=== PATIENT | male | born 1945 | race Caucasian/White ===

== ENCOUNTER 2023-02-01 14:55 | Outpatient (OUT) | payer MEDICARE, BC, SELFPAY | END 2023-02-01 14:56 | disposition home or self-care (01) | PROVIDERS: PCP Nurse Practitioner; Visit Provider Urology | DX: N40.0 Benign prostatic hyperplasia without lower urinary tract symptoms (principal); R97.20 Elevated prostate specific antigen [PSA] | CPT/HCPCS: 36415; 84153 ==

== ENCOUNTER 2023-09-01 09:21 | Outpatient (OUT) | payer MEDICARE, BC, SELFPAY ==
[2023-09-01 10:05] LABS: Basophils Absolute Auto 0.1 10^3/uL (0.0-0.1); Basophils Percent Auto 0.9 % (0.2-2.0); Eosinophils Absolute Auto 0.3 10^3/uL (0.0-0.7); Hematocrit 49.8 % (42.0-54.0); Hemoglobin 16.6 g/dL (14.0-18.0); Immature Granulocytes Abs Auto 0.03 10^3/uL (0.00-0.03); Immature Granulocytes Pct Auto 0.4 % (0.0-0.5); Lymphocytes Absolute Auto 1.8 10^3/uL (1.2-3.8); Lymphocytes Percent Auto 25.8 % (20.5-60.0); Mean Corpuscular HGB Conc 33.3 g/dL (29.9-35.2); Mean Corpuscular Volume 92.9 fL (80.0-94.0); Mean Platelet Volume 9.6 fL (9.5-13.5); Monocytes Absolute Auto 0.9 10^3/uL (0.3-0.8); Monocytes Percent Auto 12.6 % (1.7-12.0); Neutrophils Absolute Auto 3.9 10^3/uL (1.4-6.5); Neutrophils Percent Auto 56.3 % (43.0-75.0); Platelet Count 253 10^3/uL (150-450); Red Blood Count 5.36 10^6/uL (4.70-6.10); Red Cell Distribution Width 12.6 % (11.0-15.0)
[2023-09-01 10:06] LABS: Bilirubin Urine NEGATIVE (NEGATIVE); Blood Urine NEGATIVE (NEGATIVE); Clarity Urine CLEAR (CLEAR); Color Urine YELLOW (YELLOW); Glucose Urine UA NEGATIVE (NEGATIVE); Ketones Urine NEGATIVE (NEGATIVE); Leukocyte Esterase Urine NEGATIVE (NEGATIVE); Nitrite Urine NEGATIVE (NEGATIVE); Protein Urine TRACE mg/dL (NEG/TRACE); Specific Gravity Urine 1.025 (1.005-1.025); Urobilinogen Urine 0.2 EU/dL (0.2-1.0)
[2023-09-01 10:07] LABS: Urine Microscopic Indicated NO
[2023-09-01 11:19] LABS: Alanine Aminotransferase 51 U/L (16-63); Albumin Globulin Ratio 0.9; Albumin Level 3.6 g/dL (3.4-5.0); Alkaline Phosphatase 125 U/L (46-116); Anion Gap 11.2; Aspartate Amino Transferase 29 U/L (15-37); BUN Creatinine Ratio 22.6; Bilirubin Total 0.8 mg/dL (0.2-1.0); Calcium 8.9 mg/dL (8.5-10.1); Carbon Dioxide 31.4 mmol/L (21.0-32.0); Chloride 104 mmol/L (98-107); Chol HDL Ratio 3.5; Cholesterol 207 mg/dL (<=200); Estimated GFR (African America >60 (>=60); Estimated GFR (Non-African Ame >60 (>=60); Globulin 3.8 g/dL; Glucose 101 mg/dL (74-106); HDL Cholesterol 59 mg/dL (40-60); Potassium 3.6 mmol/L (3.5-5.1); Sodium 143 mmol/L (136-145); Total Protein 7.4 g/dL (6.4-8.2); Triglycerides 118 mg/dL (<=150); VLDL CHOLESTEROL 23.6 mg/dL
[2023-09-01 12:27] LABS: Creatinine Urine Random 126.08 mg/dL (20.00-300.00); Microalbum Creatinine Ratio Ur 85.6 mg/g (0.0-29.9); Microalbumin Urine Random 10.8 mg/dL (<=30.0)
== END 2023-09-01 09:22 | disposition home or self-care (01) ==
LOC: LAB 09:23
PROVIDERS: PCP Nurse Practitioner; Visit Provider Nurse Practitioner
DX: K21.9 Gastro-esophageal reflux disease without esophagitis (principal); I10 Essential (primary) hypertension
CPT/HCPCS: 36415; 80053; 80061; 81003; 82043; 82570; 85025

== ENCOUNTER 2023-12-27 09:30 | Outpatient (OUT) | payer MEDICARE, BC, SELFPAY ==
--- OUTSIDE RECORDS SUMMARY | 2023-12-27 09:53 | XMS_ITS | CCD ---
Author Organization [facility] Care Team Providers Care Ssn/Ssbn Weapons Equipment Operator Name Role Phone SEE YOUNG Primary Care Physician [phone] AICHHOLZ, PRINTER OPERATOR CHARLEEN Attending Unavailable ROSS, BETHANY E Primary Care Unavailable AICHHOLZ, PRINTER OPERATOR CHARLEEN Admitting Unavailable AICHHOLZ, PRINTER OPERATOR CHARLEEN Consulting Unavailable ROSS, BETHANY E Primary Care Unavailable MISC, DR WOO Admitting Unavailable MISC, DR WOO Consulting Unavailable MISC, DR WOO Attending Unavailable AICHHOLZ, PRINTER OPERATOR CHARLEEN Attending Unavailable AICHHOLZ, PRINTER OPERATOR CHARLEEN Admitting Unavailable ROSS, BETHANY E Primary Care Unavailable AICHHOLZ, PRINTER OPERATOR CHARLEEN Consulting Unavailable JIGNA ., DR VILLAFUERTE Admitting Unavailable BENITO ., DR VILLAFUERTE Consulting Unavailable BENITO ., DR VILLAFUERTE Attending Unavailable AICHHOLZ, PRINTER OPERATOR CHARLEEN Primary Care Unavailable AICHHOLZ, PRINTER OPERATOR CHARLEEN Admitting Unavailable AICHHOLZ, PRINTER OPERATOR CHARLEEN Primary Care Unavailable AICHHOLZ, PRINTER OPERATOR CHARLEEN Consulting Unavailable AICHHOLZ, PRINTER OPERATOR CHARLEEN Attending Unavailable Mikaela Barrera Consulting Unavailable AICHHOLZ, PRINTER OPERATOR CHARLEEN Primary Care Unavailable MISC, DR WOO Admitting Unavailable MISC, DR WOO Consulting Unavailable MISC, DR WOO Attending Unavailable AICHHOLZ, PRINTER OPERATOR CHARLEEN Admitting Unavailable AICHHOLZ, PRINTER OPERATOR CHARLEEN Primary Care Unavailable AICHHOLZ, PRINTER OPERATOR CHARLEEN Consulting Unavailable AICHHOLZ, PRINTER OPERATOR CHARLEEN Attending Unavailable Vamsi BENITO Attending Unavailable Vamsi BENITO Attending Unavailable Aichholz SECRETARY RECEPTIONIST, Charleen Unavailable Juhi MONTALVO, José Manuel Primary Care Provider [phone] GÓMEZ COELLO Attending Unavailable GÓMEZ COELLO Attending Unavailable AICHHOLZ, CHARLEEN Attending Unavailable AICHHOLZ, CHARLEEN Attending Unavailable GÓMEZ COELLO Attending Unavailable AICHHOLZ, CHARLEEN Attending Unavailable GÓMEZ COELLO Attending Unavailable Allergies Allergy Classification Reported Allergen(s) Allergy Type Date of Onset Reaction(s) Facility (1 source) No Known Medication Allergies; Translations: [No Known Medication Allergies] Propensity to adverse reactions (disorder) [facility] Repository Medications Current Medications Medication Drug Class(es) Dates Sig (Normalized) Sig (Original) amLODIPine 5 mg oral tablet (5 sources) Dihydropyridine Calcium Channel Ana Start: 07-24-2023 End: 11-08-2023 take 1 tablet by mouth in the morning amLODIPine (Norvasc) 5 MG tablet Indications: Primary hypertension (CMS/HCC) Take 1 tablet (5 mg) by mouth in the morning. 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 Disorders of lipid metabolism (5 sources) Pure hyperglyceridemia; Translations: [PURE HYPERGLYCERIDEMIA] Onset: 10-04-2021 Chronic Essential hypertension (6 sources) Hypertensive disorder; Translations: [Essential (primary) hypertension] Onset: 09-27-2022 Resolved: 06-07-2023 10-09-2019 Chronic Genitourinary symptoms and ill-defined conditions (3 sources) H/O: urethral stricture; Translations: [Microscopic hematuria] 10-09-2019 Episodic Hyperplasia of prostate (7 sources) Benign prostatic hypertrophy without outflow obstruction; Translations: [Benign prostatic hyperplasia without lower urinary tract symptoms] Onset: 02-01-2022 Chronic Other aftercare (1 source) Long-term current use of anticoagulant 10-09-2019 Episodic Other aftercare (1 source) 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; Translations: [OTH ASSISTED CURRENT DRUG THERAPY] Onset: 07-31-2022 Episodic Other inflammatory condition of skin (4 sources) Psoriasis vulgaris; Translations: [PSORIASIS VULGARIS] Onset: 07-28-2022 Chronic Screening and history of mental health and substance abuse codes (1 source) Ex-smoker 10-09-2019 Episodic Past or Other Problems Problem Classification Problem Date Documented Da te Episodic/Chronic Other connective tissue disease (4 sources) Pain in right leg; Translations: [PAIN IN RIGHT LEG] Onset: 04-14-2022 Episodic Other connective tissue disease (1 source) Synovial cyst of popliteal space [Delgado], right knee; Translations: [SYNOVIAL CYST POP SPACE RIGHT KNEE] Onset: 04-18-2022 Episodic Other screening for suspected conditions (not mental disorders or infectious disease) (7 sources) Raised prostate specific antigen; Translations: [Elevated prostate specific antigen [PSA]] Onset: 10-14-2021 Episodic Results Test Name Value Interpretation Reference Range Facil ity Lab Reportson 02-06-2023 Lab Reports [id number] D:127 Normal [facility] CBC AUTO DIFFon 09-21-2022 BASO # 0.0 103/ul Normal 0.0-0.1 [facility] Comment on above: Performed By: #### C BC #### [facility] [address] [place] [address] Dr. Navjot Fitzgerald Basophils/100 WBC (Bld) 0.7 % Normal 0.2-2.0 [facility] Comment on above: Performed By: #### C BC #### [facility] [address] [place] [place] [address] Dr. Navjot Fitzgerald EO # 0.2 103/ul Normal 0.0-0.7 [facility] Comment on above: Performed By: #### C BC #### [facility] [address] [place] [place] [address] Dr. Navjot Fitzgerald Eosinophils/100 WBC (Bld) 3.3 % Normal 0.9-7.0 [facility] Comment on above: Performed By: #### C BC #### [facility] [address] [place] [place] [address] Dr. Navjot Fitzgerald Erythrocyte distribution width (RBC) [Ratio] 12.4 % Normal 11.0-15.0 [facility] Comment on above: Performed By: #### C BC #### [facility] [address] [place] [place] [address] Dr. Navjot Fitzgerald Hematocrit (Bld) [Volume fraction] 48.6 % Normal 42.0-54.0 [facility] Comment on above: Performed By: #### C BC #### [facility] [address] [place] [place] [address] Dr. Navjot Fitzgerald Hemoglobin (Bld) [Mass/Vol] 16.6 g/dL Normal 14.0-18.[address] [facility] Comment on above: Performed By: #### C BC #### [facility] [address] [place] [place] [address] Dr. Navjot Fitzgerald IG # 0.02 10e3/ul Normal 0.00-0.03 [facility] Comment on above: Performed By: #### C BC #### [facility] [address] [place] [place] [address] Dr. Navjot Fitzgerald IG % 0.3 % Normal 0.0-0.5 [facility] Comment on above: Performed By: #### C BC #### [facility] [address] [place] [place] [address] Dr. Navjot Fitzgerald LYMPH # 1.8 103/ul Normal 1.2-3.[address] [facility] Comment on above: Performed By: #### C BC #### [facility] [address] [place] [place] [address] Dr. Navjot Fitzgerald Lymphocytes/100 WBC (Bld) 29.3 % Normal 20.5-60.0 [facility] Comment on above: Performed By: #### C BC #### [facility] [address] [place] [place] [address] Dr. Navjot Fitzgerald MANUAL DIFF REQ NO Normal [facility] Comment on above: Performed By: #### C BC #### [facility] [address] [place] [place] [address] Dr. Navjot Fitzgerald MCH (RBC) [Entitic mass] 30.7 pg Normal 25.9-34.0 [facility] Comment on above: Performed By: #### C BC #### [facility] [address] [place] [place] [address] Dr. Navjot Fitzgerald MCHC (RBC) [Mass/Vol] 34.2 g/dL Normal 29.9-35.2 [facility] Comment on above: Performed By: #### C BC #### [facility] [address] [place] [place] [address] Dr. Navjot Fitzgerald MCV (RBC) [Entitic vol] 90.0 fL Normal 80.0-94.0 [facility] Comment on above: Performed By: #### C BC #### [facility] [address] [place] [place] [address] Dr. Navjot Fitzgerald MONO # 0.7 103/ul Normal 0.3-0.8 [facility] Comment on above: Performed By: #### C BC #### [facility] [address] [place] [place] [address] Dr. Navjot Fitzgerald Monocytes/100 WBC (Bld) 11.9 % Normal 1.7-12.0 [facility] Comment on above: Performed By: #### C BC #### [facility] [address] [place] [place] [address] Dr. Navjot Fitzgerald NEUT # 3.4 103/ul Normal 1.4-6.5 [facility] Comment on above: Performed By: #### C BC #### [facility] [address] [place] [place] [address] Dr. Navjot Fitzgerald Neutrophils/100 WBC (Bld) 54.5 % Normal 43.0-75.0 [facility] Comment on above: Performed By: #### C BC #### [facility] [address] [place] [place] [address] Dr. Navjot Fitzgerald Platelet mean volume (Bld) [Entitic vol] 9.2 fL Critically low 9.5-13.5 [facility] Comment on above: Performed By: #### C BC #### [facility] [address] [place] [place] [address] Dr. Navjot Fitzgerald PLT 257 103/ul Normal 150-[address] [facility] Comment on above: Performed By: #### C BC #### [facility] [address] [place] [place] [address] Dr. Navjot Fitzgerald RBC 5.40 106/ul Normal 4.70-6.10 [facility] Comment on above: Performed By: #### C BC #### [facility] [address] [place] [place] [address] Dr. Navjot Fitzgerald WBC 6.2 103/ul Normal 4.0-11.0 [facility] Comment on above: Performed By: #### C BC #### [facility] [address] [place] [place] [address] Dr. Navjot Fitzgerald LIPID PROFILEon 09-21-2022 CHOL-HDL RATIO NORM SEE BELOW Normal [facility] Comment on above: Result Comment: 3.3 - 4.4 LOW RISK 4.4 - 7.1 AVERAGE RISK 7.1 - 11.0 MODERATE RISK >11.0 HIGH RISK Performed By: #### C MP, LIPID #### [facility] [address] [place] [place] [address] Dr. Navjot Fitzgerald Cholesterol [Mass/Vol] 184 mg/dL Normal <=200 [facility] Comment on above: Performed By: #### C MP, LIPID #### [facility] [address] [place] [place] [address] Dr. Navjot Fitzgerald Cholesterol in HDL [Mass/Vol] 54 mg/dL Normal 40-60 [facility] Comment on above: Performed By: #### C MP, LIPID #### [facility] [address] [place] [place] [address] Dr. Navjot Fitzgerald Cholesterol in LDL [Mass/Vol] 106.6 mg/dL Normal [facility] Comment on above: Performed By: #### C MP, LIPID #### [facility] [address] [place] [place] [address] Dr. Navjot Fitzgerald Cholesterol.total/ Cholesterol in HDL [Mass ratio] 3.4 {ratio} Normal [facility] Comment on above: Performed By: #### C MP, LIPID #### [facility] [address] [place] [place] [address] Dr. Navjot Fitzgerald HDL NORMAL > or = 60 mg/dl - LO W CARDIOVASCULAR RISK <40 mg/dl - HIGH CARDIOVASCULAR RISK Normal [facility] Comment on above: Performed By: #### C MP, LIPID #### [facility] [address] [address] [address] Navjot Fitzgerald LDL CALC NORMAL SEE BELOW Normal [facility] Comment on above: Result Comment: <100 mg/dl OPTIMAL 100 - 129 mg/dl NEAR OR ABOVE OPTIMAL 130 - 159 mg/dl BORDERLINE HIGH 160 - 189 mg/dl HIGH >190 mg/dl VERY HIGH Performed By: #### C MP, LIPID #### [facility] [address] [address] [address] Navjot Fitzgerald Triglyceride [Mass/Vol] 117 mg/dL Normal <=150 [facility] Comment on above: Performed By: #### C MP, LIPID #### [facility] [address] [address] [address] Navjot Fitzgerald VLDL CALC 23.4 mg/dL Normal [facility] Comment on above: Performed By: #### C MP, LIPID #### [facility] [address] [place] [place] [address] Dr. Navjot Fitzgerald PROF 14(COMP METB)on 023 Albumin [Mass/Vol] 3.8 g/dL Normal 3.4-5.0 [facility] Comment on above: Performed By: #### C MP, LIPID #### [facility] [address] [address] [address] Navjot Fitzgerald Albumin/Globulin [Mass ratio] 1.1 {ratio} Normal [facility] Comment on above: Performed By: #### C MP, LIPID #### [facility] [address] [address] [address] Navjot Fitzgerald ALP [Catalytic activity/Vol] 125 U/L Critically high 46-116 [facility] Comment on above: Performed By: #### C MP, LIPID #### [facility] [address] [address] [address] Navjot Fitzgerald ALT [Catalytic activity/Vol] 40 U/L Normal 16-63 [facility] Comment on above: Performed By: #### C MP, LIPID #### [facility] [address] [address] [address] Navjot Fitzgerald Anion gap [Moles/Vol] 11.7 mmol/L Normal [facility] Comment on above: Performed By: #### C MP, LIPID #### [facility] [address] [address] [address] Navjot Fitzgerald AST [Catalytic activity/Vol] 26 U/L Normal 15-37 [facility] Comment on above: Performed By: #### C MP, LIPID #### [facility] [address] [address] [address] Navjot Fitzgerald Bilirubin [Mass/Vol] 0.6 mg/dL Normal 0.2-1.0 [facility] Comment on above: Performed By: #### C MP, LIPID #### [facility] [address] [address] [address] Navjot Fitzgerald Calcium [Mass/Vol] 9.1 mg/dL Normal 8.5-10.1 [facility] Comment on above: Performed By: #### C MP, LIPID #### [facility] [address] [address] [address] Navjot Fitzgerald Chloride [Moles/Vol] 108 mmol/L Critically high 98-107 [facility] Comment on above: Performed By: #### C MP, LIPID #### [facility] [address] [address] [address] Navjot Fitzgerald CO2 [Moles/Vol] 28.3 mmol/L Normal 21.0-32.0 [facility] Comment on above: Performed By: #### C MP, LIPID #### [facility] [address] [address] [address] Navjot Fitzgerald Creatinine [Mass/Vol] 1.00 mg/dL Normal 0.70-1.30 [facility] Comment on above: Performed By: #### C MP, LIPID #### [facility] [address] [address] [address] Navjot Fitzgerald EGFR-AF GABONESE >60 Normal >=60 [facility] Comment on above: Performed By: #### C MP, LIPID #### [facility] [address] [address] [address] Navjot Fitzgerald EGFR-NON AF GABONESE >60 Normal >=60 [facility] Comment on above: Performed By: #### C MP, LIPID #### [facility] [address] [address] [address] Navjot Fitzgerald Globulin (S) [Mass/Vol] 3.4 g/dL Normal [facility] Comment on above: Performed By: #### C MP, LIPID #### [facility] [address] [address] [address] Navjot Fitzgerald Glucose [Mass/Vol] 105 mg/dL Normal 74-106 [facility] Comment on above: Performed By: #### C MP, LIPID #### [facility] [address] [address] [address] Navjot Fitzgerald Potassium [Moles/Vol] 4.0 mmol/L Normal 3.5-5.1 [facility] Comment on above: Performed By: #### C MP, LIPID #### [facility] [address] [place] [address] Dr. Navjot Fitzgerald Protein [Mass/Vol] 7.2 g/dL Normal 6.4-8.2 [facility] Comment on above: Performed By: #### C MP, LIPID #### [facility] [address] [place] [place] [address] Dr. Navjot Fitzgerald Sodium [Moles/Vol] 144 mmol/L Normal 136-145 [facility] Comment on above: Performed By: #### C MP, LIPID #### [facility] [address] [place] [place] [address] Dr. Navjot Fitzgerald Urea nitrogen [Mass/Vol] 21.0 mg/dL Critically high 7.0-18.0 [facility] Comment on above: Performed By: #### C MP, LIPID #### [facility] [address] [place] [place] [address] Dr. Navjot Fitzgerald Urea nitrogen/Creatinin e [Mass ratio] 21.0 mg/mg Normal [facility] Comment on above: Performed By: #### C MP, LIPID #### [facility] [address] [place] [place] [address] Dr. Navjot Fitzgerald UA RANDOM W/MICROSCOPICon BACTERIA NONE SEEN Normal NONE SEEN [facility] Comment on above: Performed By: #### U AMIC #### [facility] [address] [address] [address] Navjot Fitzgerald Bilirubin Ql (U) Negative Normal NEGATIVE [facility] Comment on above: Performed By: #### U AMIC #### [facility] [address] [address] [address] Navjot Fitzgerald CAST NONE SEEN Normal NONE SEEN [facility] Comment on above: Performed By: #### U AMIC #### [facility] [address] [address] [address] Navjot Fitzgerald Clarity (U) CLEAR Normal CLEAR [facility] Comment on above: Performed By: #### U AMIC #### [facility] [address] [address] [address] Navjot Fitzgerald Color (U) LT. YELLOW Normal YELLOW [facility] Comment on above: Performed By: #### U AMIC #### [facility] [address] [address] [address] Navjot Fitzgerald Crystals LM Nom (Urine sed) NONE SEEN Normal NONE SEEN [facility] Comment on above: Performed By: #### U AMIC #### [facility] [address] [address] [address] Navjot Fitzgerald Epithelial cells LM Ql (Urine sed) NONE SEEN Normal NONE SEEN /RARE [facility] Comment on above: Performed By: #### U AMIC #### [facility] [address] [place] [place] [address] Dr. Navjot Fitzgerald Glucose Ql (U) Negative Normal NEGATIVE [facility] Comment on above: Performed By: #### U AMIC #### [facility] [address] [address] [address] Navjot Fitzgerald Hemoglobin Ql (U) Negative Normal NEGATIVE [facility] Comment on above: Performed By: #### U AMIC #### [facility] [address] [address] [address] Navjot Fitzgerald Ketones Ql (U) Negative Normal NEGATIVE [facility] Comment on above: Performed By: #### U AMIC #### [facility] [address] [address] [address] Navjot Fitzgerald LEUKOCYTES Negative Normal NEGATIVE [facility] Comment on above: Performed By: #### U AMIC #### [facility] [address] [address] [address] Navjot Fitzgerald MUCOUS NONE SEEN Normal NONE SEEN [facility] Comment on above: Performed By: #### U AMIC #### [facility] [address] [address] [address] Navjot Fitzgerald Nitrite Ql (U) Negative Normal NEGATIVE [facility] Comment on above: Performed By: #### U AMIC #### [facility] [address] [place] [place] [address] Dr. Navjot Fitzgerald pH (U) 7.0 [pH] Normal 5-[address] [facility] Comment on above: Performed By: #### U AMIC #### [facility] [address] [place] [place] [address] Dr. Navjot Fitzgerald RBC NONE SEEN Abnormal 0-[address] [facility] Comment on above: Performed By: #### U AMIC #### [facility] [address] [place] [place] [address] Dr. Navjot Fitzgerald SPEC GRAVITY 1.010 Normal 1.005-<=1.025 [facility] Comment on above: Performed By: #### U AMIC #### [facility] [address] [place] [place] [address] Dr. Navjot Fitzgerald UA PROTEIN Negative Normal NEGATIVE/ TRACE [facility] Comment on above: Performed By: #### U AMIC #### [facility] [address] [place] [place] [address] Dr. Navjot Fitzgerald Urobilinogen Qn (U) 0.2 {Marita'U}/dL Normal 0.2 - 1.[address] [facility] Comment on above: Performed By: #### U AMIC #### [facility] [address] [place] [place] [address] Dr. Navjot Fitzgerald WBC NONE SEEN Normal NONE SEEN [facility] Comment on above: Performed By: #### U AMIC #### [facility] [address] [place] [place] [address] Dr. Navjot Fitzgerald QUANTIFERON TB GOLD PLUSon 0 07-30-2022 QuantiFERON Criteria Comment Normal [facility] Comment on above: Result Comment: Braden tiFERON-TB Gold Plus is a qualitative indirect test for M tuberculosis infection (including disease) and is intended for use in conjunction with risk assessment, radiography, and other medical and diagnostic evaluations. The QuantiFERON-TB Gold Plus result is determined by subtracting the Nil value from either TB antigen (Ag) value. The Mitogen tube serves as a control for the test. Performed By: #### Q NTTB #### [facility] [address] [place] [address] Dr. Navjot Fitzgerald QuantiFERON Incubation Incubation performed. Normal [facility] Comment on above: Performed By: #### Q NTTB #### [facility] [address] [place] [place] [address] Dr. Navjot Fitzgerald QuantiFERON Mitogen Value >10.00 Normal [facility] Comment on above: Performed By: #### Q NTTB #### [facility] [address] [place] [address] Dr. Navjot Fitzgerald QuantiFERON Nil Value 0.02 IU/mL Normal [facility] Comment on above: Performed By: #### Q NTTB #### [facility] [address] [place] [place] [address] Dr. Navjot Fitzgerald QuantiFERON TB1 Ag Value 0.02 IU/mL Normal [facility] Comment on above: Performed By: #### Q NTTB #### [facility] [address] [place] [place] [address] Dr. Navjot Fitzgerald QuantiFERON TB2 Ag Value 0.02 IU/mL Normal [facility] Comment on above: Performed By: #### Q NTTB #### [facility] [address] [place] [place] [address] Dr. Navjot Fitzgerald QuantiFERON-TB Gold Plus Negative Normal Negative [facility] Comment on above: Result Comment: No r esponse to M tuberculosis antigens detected. Infection with M tuberculosis is unlikely, but high risk individuals should be considered for additional testing (ATS/IDSA/CDC Clinical Practice Guidelines, 2017). The reference range is an Antigen minus Nil result of <0.35 IU/mL. Chemiluminescence immunoassay methodology Performed By: #### Q NTTB #### [facility] [address] [place] [place] [address] Dr. Navjot Fitzgerald US MINDY DOP LEG RTon 04-14-20 US MINDY DOP LEG RT ULTRASOUND RIGHT LOW ER EXTREMITY COLOR VENOUS DUPLEX HISTORY: Swelling. Pain. COMPARISON: None. PROCEDURE: Duplex ultrasound and Doppler images were obtained of the right lower extremity. Venous duplex examination performed using B-mode, color flow and spectral analysis. FINDINGS: There is normal color flow and compressibility seen in the visualized deep venous structures of the right lower extremity with no evidence for thrombosis seen. The profundus and saphenous veins are patent. There are normal venous Doppler waveforms. There is a popliteal fossa 4.0 x 1.5 x 1.1 cm fluid collection. IMPRESSION: No evidence for DVT. Right Delgado's cyst. Electronically authenticated by: MIKAELA BARRERA Date: 2022-04-14 16:[address] [facility] LIVER PROFILEon 10-14-2021 Albumin [Mass/Vol] 3.6 g/dL Normal 3.4-5.0 [facility] Comment on above: Performed By: #### L IVER #### [facility] [address] [place] [address] Dr. Navjot Fitzgerald Albumin/Globulin [Mass ratio] 1.0 {ratio} Normal [facility] Comment on above: Performed By: #### L IVER #### [facility] [address] [place] [address] Dr. Navjot Fitzgerald ALP [Catalytic activity/Vol] 107 U/L Normal 46-[address] [facility] Comment on above: Performed By: #### L IVER #### [facility] [address] [address] [address] Navjot Fitzgerald ALT [Catalytic activity/Vol] 50 U/L Normal 16-63 [facility] Comment on above: Performed By: #### L IVER #### [facility] [address] [place] [address] Dr. Navjot Fitzgerald AST [Catalytic activity/Vol] 25 U/L Normal 15-37 [facility] Comment on above: Performed By: #### L IVER #### [facility] [address] [address] [address] Navjot Fitzgerald BILI, CONJUGATED 0.2 mg/dL Normal 0.0-0.3 [facility] Comment on above: Performed By: #### L IVER #### [facility] [address] [address] [address] Navjot Fitzgerald Bilirubin [Mass/Vol] 0.6 mg/dL Normal 0.2-1.3 [facility] Comment on above: Performed By: #### L IVER #### [facility] [address] [address] [address] Navjot Fitzgerald Globulin (S) [Mass/Vol] 3.5 g/dL Normal [facility] Comment on above: Performed By: #### L IVER #### [facility] [address] [address] [address] Navjot Fitzgerald Protein [Mass/Vol] 7.1 g/dL Normal 6.1-8.2 [facility] Comment on above: Performed By: #### L IVER #### [facility] [address] [address] [address] Navjot Fitzgerald QUANTIFERON TB GOLD PLUSon 0 10-03-2021 QuantiFERON Criteria Comment Normal [facility] Comment on above: Result Comment: The QuantiFERON-TB Gold Plus result is determined by subtracting the Nil value from either TB antigen (Ag) tube. The mitogen tube serves as a control for the test. Performed By: #### Q NTTB ####[facility] [address] [address]Dr. Navjot Fitzgerald QuantiFERON Incubation Incubation performed. Normal [facility] Comment on above: Performed By: #### Q NTTB ####[facility] [address] [address]Dr. Navjot Fitzgerald QuantiFERON Mitogen Value >10.00 Normal [facility] Comment on above: Performed By: #### Q NTTB ####[facility] [address] [address]Dr. Navjot Fitzgerald QuantiFERON Nil Value 0.05 IU/mL Normal [facility] Comment on above: Performed By: #### Q NTTB ####[facility] [address] [address]Dr. Navjot Fitzgerald QuantiFERON TB1 Ag Value 0.05 IU/mL Normal [facility] Comment on above: Performed By: #### Q NTTB ####[facility] [address] [id number]. Navjot Fitzgerald QuantiFERON TB2 Ag Value 0.06 IU/mL Normal [facility] Comment on above: Performed By: #### Q NTTB ####[facility] [address] [address]Dr. Navjot Fitzgerald QuantiFERON-TB Gold Plus Negative Normal Negative [facility] Comment on above: Result Comment: Chem iluminescence immunoassay methodology Performed By: #### Q NTTB ####[facility] [address] [address]DrJohanna Fitzgerald CBC AUTO DIFFon 09-30-2021 BASO # 0.0 103/ul Normal 0.0-0.1 [facility] Comment on above: Performed By: #### C BC #### [facility] [address] [place] [place] [address] Dr. Navjot Fitzgerald Basophils/100 WBC (Bld) 0.5 % Normal 0.2-2.0 [facility] Comment on above: Performed By: #### C BC #### [facility] [address] [place] [place] [address] Dr. Navjot Fitzgerald EO # 0.2 103/ul Normal 0.0-0.[address] [facility] Comment on above: Performed By: #### C BC #### [facility] [address] [place] [place] [address] Dr. Navjot Fitzgerald Eosinophils/100 WBC (Bld) 4.2 % Normal 0.9-7.0 [facility] Comment on above: Performed By: #### C BC #### [facility] [address] [address] [address] Navjot Fitzgerald Erythrocyte distribution width (RBC) [Ratio] 12.3 % Normal 11.0-15.0 [facility] Comment on above: Performed By: #### C BC #### [facility] [address] [place] [place] [address] Dr. Navjot Fitzgerald Hematocrit (Bld) [Volume fraction] 45.5 % Normal 42.0-54.0 [facility] Comment on above: Performed By: #### C BC #### [facility] [address] [place] [place] [address] Dr. Navjot Fitzgerald Hemoglobin (Bld) [Mass/Vol] 15.8 g/dL Normal 14.0-18.0 [facility] Comment on above: Performed By: #### C BC #### [facility] [address] [place] [place] [address] Dr. Navjot Fitzgerald IG # 0.03 10e3/ul Normal 0.00-0.03 [facility] Comment on above: Performed By: #### C BC #### [facility] [address] [place] [place] [address] Dr. Navjot Fitzgerald IG % 0.5 % Normal 0.0-0.5 [facility] Comment on above: Performed By: #### C BC #### [facility] [address] [place] [place] [address] Dr. Navjot Fitzgerald LYMPH # 1.7 103/ul Normal 1.2-3.8 [facility] Comment on above: Performed By: #### C BC #### [facility] [address] [place] [place] [address] Dr. Navjot Fitzgerald Lymphocytes/100 WBC (Bld) 29.6 % Normal 20.5-60.0 [facility] Comment on above: Performed By: #### C BC #### [facility] [address] [place] [address] Dr. Navjot Fitzgerald MANUAL DIFF REQ NO Normal [facility] Comment on above: Performed By: #### C BC #### [facility] [address] [place] [place] [address] Dr. Navjot Fitzgerald MCH (RBC) [Entitic mass] 31.3 pg Normal 25.9-34.[address] [facility] Comment on above: Performed By: #### C BC #### [facility] [address] [address] [address] Navjot Fitzgerald MCHC (RBC) [Mass/Vol] 34.7 g/dL Normal 29.9-35.2 [facility] Comment on above: Performed By: #### C BC #### [facility] [address] [address] [address] Navjot Fitzgerald MCV (RBC) [Entitic vol] 90.3 fL Normal 80.0-94.0 [facility] Comment on above: Performed By: #### C BC #### [facility] [address] [place] [place] [address] Dr. Navjot Fitzgerald MONO # 0.6 103/ul Normal 0.3-0.8 [facility] Comment on above: Performed By: #### C BC #### [facility] [address] [place] [place] [address] Dr. Navjot Fitzgerald Monocytes/100 WBC (Bld) 10.6 % Normal 1.7-12.0 [facility] Comment on above: Performed By: #### C BC #### [facility] [address] [place] [place] [address] Dr. Navjot Fitzgerald NEUT # 3.2 103/ul Normal 1.4-6.5 [facility] Comment on above: Performed By: #### C BC #### [facility] [address] [address] [address] Navjot Fitzgerald Neutrophils/100 WBC (Bld) 54.6 % Normal 43.0-75.0 [facility] Comment on above: Performed By: #### C BC #### [facility] [address] [address] [address] Navjot Fitzgerald Platelet mean volume (Bld) [Entitic vol] 9.2 fL Critically low 9.5-13.5 [facility] Comment on above: Performed By: #### C BC #### [facility] [address] [address] [address] Navjot Fitzgerald PLT 237 103/ul Normal 150-[address] [facility] Comment on above: Performed By: #### C BC #### [facility] [address] [address] [address] Navjot Fitzgerald RBC 5.04 106/ul Normal 4.70-6.[address] [facility] Comment on above: Performed By: #### C BC #### [facility] [address] [address] [address] Navjot Fitzgerald WBC 5.8 103/ul Normal 4.0-11.[address] [facility] Comment on above: Performed By: #### C BC #### [facility] [address] [address] [address] Navjot Fitzgerald LIPID PROFILEon 09-30-2021 CHOL-HDL RATIO NORM SEE BELOW Normal [facility] Comment on above: Result Comment: 3.3 - 4.4 LOW RISK 4.4 - 7.1 AVERAGE RISK 7.1 - 11.0 MODERATE RISK >11.0 HIGH RISK Performed By: #### C MP, LIPID ####[facility] [address] [address]Dr. Navjot Fitzgerald Cholesterol [Mass/Vol] 128 mg/dL Normal <=[address] [facility] Comment on above: Performed By: #### C MP, LIPID ####[facility] [address] [address]Dr. Navjot Fitzgerald Cholesterol in HDL [Mass/Vol] 42 mg/dL Normal 40-[address] [facility] Comment on above: Performed By: #### C MP, LIPID ####[facility] [address] [id number]. Navjot Fitzgerald Cholesterol in LDL [Mass/Vol] 72.6 mg/dL Normal [facility] Comment on above: Performed By: #### C MP, LIPID ####[facility] [address] [id number]. Navjot Fitzgerald Cholesterol.total/ Cholesterol in HDL [Mass ratio] 3.0 {ratio} Normal [facility] Comment on above: Performed By: #### C MP, LIPID ####[facility] [address] [id number]. Navjot Fitzgerald HDL NORMAL > or = 60 mg/dl - LO W CARDIOVASCULAR RISK <40 mg/dl - HIGH CARDIOVASCULAR RISK Normal [facility] Comment on above: Performed By: #### C MP, LIPID ####[facility] [address] [id number]. Navjot Fitzgerald LDL CALC NORMAL SEE BELOW Normal [facility] Comment on above: Result Comment: <100 mg/dl OPTIMAL 100 - 129 mg/dl NEAR OR ABOVE OPTIMAL 130 - 159 mg/dl BORDERLINE HIGH 160 - 189 mg/dl HIGH >190 mg/dl VERY HIGH Performed By: #### C MP, LIPID ####[facility] [address] [id number]. Navjot Fitzgerald Triglyceride [Mass/Vol] 67 mg/dL Normal <=150 [facility] Comment on above: Performed By: #### C MP, LIPID ####[facility] [address] [id number]. Navjot Fitzgerald VLDL CALC 13.4 mg/dL Normal [facility] Comment on above: Performed By: #### C MP, LIPID ####[facility] [address] [id number]. Navjot Fitzgerald PROF 14(COMP METB)on 022 Albumin [Mass/Vol] 3.4 g/dL Normal 3.4-5.0 [facility] Comment on above: Performed By: #### C MP, LIPID ####[facility] [address] [id number]. Navjot Fitzgerald Albumin/Globulin [Mass ratio] 0.9 {ratio} Normal [facility] Comment on above: Performed By: #### C MP, LIPID ####[facility] [address] [id number]. Navjot Fitzgerald ALP [Catalytic activity/Vol] 106 U/L Normal 46-116 [facility] Comment on above: Performed By: #### C MP, LIPID ####[facility] [address] [id number]. Navjot Fitzgerald ALT [Catalytic activity/Vol] 74 U/L Critically high 16-63 [facility] Comment on above: Result Comment: SPEC IMEN SLIGHTLY HEMOLIZED--NOTIFY LAB IF REDRAW REQUESTED Performed By: #### C MP, LIPID ####[facility] [address] [address]Dr. Navjot Fitzgerald Anion gap [Moles/Vol] 12.5 mmol/L Normal [facility] Comment on above: Performed By: #### C MP, LIPID ####[facility] [address] [address]Dr. Navjot Fitzgerald AST [Catalytic activity/Vol] 65 U/L Critically high 15-37 [facility] Comment on above: Result Comment: SPEC IMEN SLIGHTLY HEMOLIZED--NOTIFY LAB IF REDRAW REQUESTED Performed By: #### C MP, LIPID ####[facility] [address] [address]Dr. Navjot Fitzgerald Bilirubin [Mass/Vol] 0.8 mg/dL Normal 0.2-1.3 [facility] Comment on above: Performed By: #### C MP, LIPID ####[facility] [address] [address]Dr. Kristaabhinav Fitzgerald Calcium [Mass/Vol] 8.6 mg/dL Normal 8.5-10.1 [facility] Comment on above: Performed By: #### C MP, LIPID ####[facility] [address] [address]Dr. Navjot Fitzgerald Chloride [Moles/Vol] 103 mmol/L Normal 98-[address] [facility] Comment on above: Performed By: #### C MP, LIPID ####[facility] [address] [address]Dr. Navjot Fitzgerald CO2 [Moles/Vol] 27.7 mmol/L Normal 22.0-30.0 [facility] Comment on above: Performed By: #### C MP, LIPID ####[facility] [address] [address]Dr. Navjot Fitzgerald Creatinine [Mass/Vol] 0.74 mg/dL Normal 0.66-1.25 [facility] Comment on above: Performed By: #### C MP, LIPID ####[facility] [address] [id number]. Navjot Fitzgerald EGFR-AF GABONESE >60 Normal >=60 [facility] Comment on above: Performed By: #### C MP, LIPID ####[facility] [address] [place], [place] [address]Up. Navjot Fitzgerald EGFR-NON AF GABONESE >60 Normal >=60 [facility] Comment on above: Performed By: #### C MP, LIPID ####[facility] [address] [id number]. Navjot Fitzgerald Globulin (S) [Mass/Vol] 3.8 g/dL Normal [facility] Comment on above: Performed By: #### C MP, LIPID ####[facility] [address] [address]Dr. Navjot Fitzgerald Glucose [Mass/Vol] 98 mg/dL Normal 74-106 [facility] Comment on above: Performed By: #### C MP, LIPID ####[facility] [address] [id number]. Navjot Fitzgerald Potassium [Moles/Vol] 4.2 mmol/L Normal 3.4-5.0 [facility] Comment on above: Result Comment: SPEC IMEN SLIGHTLY HEMOLIZED--NOTIFY LAB IF REDRAW REQUESTED Performed By: #### C MP, LIPID ####[facility] [address] [address]Dr. Navjot Fitzgerald Protein [Mass/Vol] 7.2 g/dL Normal 6.1-8.2 [facility] Comment on above: Performed By: #### C MP, LIPID ####[facility] [address] [id number]. Navjot Fitzgerald Sodium [Moles/Vol] 139 mmol/L Normal 137-145 [facility] Comment on above: Performed By: #### C MP, LIPID ####[facility] [address] [id number]. Navjot Fitzgerald Urea nitrogen [Mass/Vol] 20.0 mg/dL Critically high 7.0-18.[address] [facility] Comment on above: Performed By: #### C MP, LIPID ####[facility] [address] [address]Dr. Navjot Fitzgerald Urea nitrogen/Creatinin e [Mass ratio] 27.0 mg/mg Normal [facility] Comment on above: Performed By: #### C MP, LIPID ####[facility] [address] [id number]. Navjot Fitzgerald UA RANDOM W/MICROSCOPICon BACTERIA TRACE Abnormal NONE SEEN [facility] Comment on above: Performed By: #### U AMIC #### [facility] [address] [place] [place] [address] Dr. Navjot Fitzgerald Bilirubin Ql (U) Negative Normal NEGATIVE [facility] Comment on above: Performed By: #### U AMIC #### [facility] [address] [place] [place] [address] Dr. Navjot Fitzgerald CAST NONE SEEN Normal NONE SEEN [facility] Comment on above: Performed By: #### U AMIC #### [facility] [address] [place] [place] [address] Dr. Navjot Fitzgerald Clarity (U) SL CLOUDY Abnormal CLEAR [facility] Comment on above: Performed By: #### U AMIC #### [facility] [address] [address] [address] Navjot Fitzgerald Crystals LM Nom (Urine sed) NONE SEEN Normal NONE SEEN [facility] Comment on above: Performed By: #### U AMIC #### [facility] [address] [place] [place] [address] Dr. Navjot Fitzgerald Epithelial cells LM Ql (Urine sed) RARE Normal NONE SEEN /RARE [facility] Comment on above: Performed By: #### U AMIC #### [facility] [address] [address] [address] Navjot Fitzgerald Glucose Ql (U) Negative Normal NEGATIVE [facility] Comment on above: Performed By: #### U AMIC #### [facility] [address] [place] [place] [address] Dr. Navjot Fitzgerald Hemoglobin Ql (U) TRACE-LYSED Abnormal NEGATIVE The [facility] Comment on above: Performed By: #### U AMIC #### [facility] [address] [address] [address] Navjot Fitzgerald Ketones Ql (U) Negative Normal NEGATIVE [facility] Comment on above: Performed By: #### U AMIC #### [facility] [address] [address] [address] Navjot Fitzgerald LEUKOCYTES Negative Normal NEGATIVE [facility] Comment on above: Performed By: #### U AMIC #### [facility] [address] [address] [address] Navjot Fitzgerald MUCOUS TRACE Abnormal NONE SEEN [facility] Comment on above: Performed By: #### U AMIC #### [facility] [address] [place] [place] [address] Dr. Navjot Fitzgerald Nitrite Ql (U) Negative Normal NEGATIVE [facility] Comment on above: Performed By: #### U AMIC #### [facility] [address] [place] [place] [address] Dr. Navjot Fitzgerald pH (U) 6.0 [pH] Normal 5-9 [facility] Comment on above: Performed By: #### U AMIC #### [facility] [address] [place] [place] [address] Dr. Navjot Fitzgerald RBC 0-2 Normal 0-2 [facility] Comment on above: Performed By: #### U AMIC #### [facility] [address] [place] [place] [address] Dr. Navjot Fitzgerald SPEC GRAVITY 1.015 Normal 1.005-<=1.025 [facility] Comment on above: Performed By: #### U AMIC #### [facility] [address] [place] [place] [address] Dr. Navjot Fitzgerald UA PROTEIN Negative Normal NEGATIVE/ TRACE [facility] Comment on above: Performed By: #### U AMIC #### [facility] [address] [place] [place] [address] Dr. Navjot Fitzgerald Urobilinogen Qn (U) 0.2 {Marita'U}/dL Normal 0.2 - 1.[address] [facility] Comment on above: Performed By: #### U AMIC #### [facility] [address] [address] [address] Navjot Fitzgerald WBC NONE SEEN Normal NONE SEEN [facility] Comment on above: Performed By: #### U AMIC #### [facility] [address] [place], [place] [address] Dr. 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 RECEPTIONIST Work Phone: [facility] Comment on above: Primary hypertension (CMS/HCC) (Primary Dx) Start: 07-25-2023 End: 07-25-2023 ambulatory GÓMEZ A BROWN Not Available Start: 07-11-2023 End: 07-11-2023 ambulatory GÓMEZ A BROWN Not Available Start: 02-10-2023 ambulatory Vamsi Gomezi ty:[facility] Start: 09-21-2022 End: 09-22-2022 ambulatory PRINTER OPERATOR CHARLEEN AICHHOLZ Facility:[facility] Start: 07-28-2022 End: 07-29-2022 ambulatory PRINTER OPERATOR CHARLEEN AICHHOLZ Facility:[facility] Start: 04-14-2022 End: 04-15-2022 ambulatory PRINTER OPERATOR CHARLEEN AICHHOLZ Facility:[facility] Start: 02-04-2022 End: 02-04-2022 Patient encounter procedure Vamsi BENITO [facility] Start: 02-01-2022 End: 02-02-[address] VAMSI BENITO . Facility:[facility] Start: 10-14-2021 End: 10-15-2021 ambulatory TAE HATFIELD Facility:[facility] Start: 10-01-2021 End: 10-02-2021 ambulatory BETHANY GONZALEZ Facility:[facility] Start: 09-30-2021 End: 10-01-2021 ambulatory TAE HATFIELD Facility:[facility] Procedures Date Procedure Procedure Detail Performing Clinician Start: 02-01-2022 PSA screening TAE HONGJoaquimJOSÉ Comment on above: Performed By: #### P SAD #### [facility] [address] [place] [address] Dr. Navjot Fitzgerald Start: 07-18-2013 Optical urethrotomy Maggi BENITO Start: 06-20-2013 Cystoscopy Vamsi HORTON Start: 04-13-2010 Transrectal biopsy o f prostate using ultrasound guidance Vamsi BENITO Start: 07-28-2009 Transrectal biopsy o f prostate using ultrasound guidance Vamsi BENITO Start: 06-10-2007 Transurethral prostatectomy Vamsi BENITO Start: 03-14-2006 Laser ablation of prostate Vamsi BENITO Start: 02-24-2006 Cystoscopy Vamsi HORTON Start: 09-16-2005 Transrectal biopsy o f prostate using ultrasound guidance Vamsi BENITO Prosthetic arthropla sty of shoulder Vamsi BENITO Plan of Treatment Date Care Activity Detail Author Start: 02-21-2024 Screening for malign ant neoplasm of colon [facility] Start: 09-19-2023 End: 09-19-2023 Patient encounter procedure 09/19/2023 4:00 PM EDT Procedure Visit [facility] [address] [place] [address] Gómez Coello DPM [address] [address] [facility] Start: 08-28-2023 End: 08-28-2023 Patient encounter procedure 08/28/2023 10:00 AM EST Office Visit [facility] [address] [place] [id number] Charleen Hatfield, MARYAM [address] [place] [address] [facility] Start: 02-24-2023 Influenza vaccination Influenza Vacc ine (#1) [facility] Start: 08-11-2017 Pneumococcal Vaccine : 65+ Years (2 of 2 - PPSV23 or PCV20) Pneumococcal Vaccine: 65+ Years (2 of 2 - PPSV23 or PCV20) [facility] Start: 1945 Screening for malign ant neoplasm of colon [facility] Immunizations Immunization Date Immunization Notes Care Provider Fa cility 08-24-2020 SARS-CoV-2 (COVID-19 ) Ad26 vaccine, recombinant Vamsi BENITO [facility] 04-25-2018 influenza virus vaccine, unspecified formulation Charleen Hatfield NP Work Phone: [facility] Healthcare Payers Date Payer Category Payer Unknown BCBS BCBS xxxxxx [id number] 2016-Present [phone] [address] [place] [address] [id number] 2012 Medicare MEDICARE MEDICAR E RAILROAD [id number] 2012-Present [employer] MEDICARE [address] [address] [place] [address] Medicare [id number] 1959 Medicare [id number] 1959 Unknown [id number] 1947 Unknown [id number] [id number]3 1947 Unknown [id number] 2.16.840.1.782895.3.579.2.593 1947 Unknown [id number] 2.16.840.1.975655.3.579.2.593 1947 Unknown [id number] 2.16.840.1.512980.3.579.2.593 1947 Unknown [id number] 2.16.840.1.098983.3.579.2.593 1947 Unknown [id number] 2.16.840.1.987035.3.579.2.593 1947 Unknown [id number] 2.16.840.1.686218.3.579.2.593 1947 Unknown [id number] 2.16.840.1.885600.3.579.2.727 1947 Unknown [id number] 2.16.840.1.376469.3.579.2.727 1947 Unknown [id number] 2.16.840.1.483573.3.579.2.125 9 1947 Unknown [id number] 2.16.840.1.512886.3.579.2.125 9 1947 Unknown [id number] 2.16.840.1.444138.3.579.2.125 9 1947 Unknown [id number] 2.16.840.1.668258.3.579.2.125 9 1947 Unknown [id number] 2.16.840.1.196571.3.579.2.125 9 1947 Unknown [id number] 2.16.840.1.852053.3.579.2.125 9 1947 Unknown [id number] 2.16.840.1.124856.3.579.2.125 9 Social History Date Type Detail Facility Start: 02-04-2022 End: 07-11-2023 Tobacco smoking status Never smoked tobacco (finding) [facility] Start: 07-25-2023 Sex Assigned At Male [facility] Start: 07-11-2023 Tobacco use and exposure Smokeless tobacco non-user [facility] Start: 07-25-2023 Alcohol intake Lifetime non-d nilo (finding) [facility] Start: 07-25-2023 History of Social function [employer] [facility] Start: 1945 Sex Assigned At Not on file [facility] Functional Status Date Assessment Result Facility 02-04-2022 Functional Status N/A [facility] Discharge instructions 02-04-2022 Note Date & Type Note Facility 02-04-2022 Hospital Discharge instructions Patient Education 02/04/2022 13:32:12 Benign Prostatic Hyperplasia Benign Prostatic Hyperplasia Benign prostatic hyperplasia (BPH) is an enlarged prostate gland that is caused by the normal aging process and not by cancer. The prostate is a walnut-sized gland that is involved in the production of semen. It is located in front of the rectum and below the bladder. The bladder stores urine and the urethra is the tube that carries the urine out of the body. The prostate may get bigger as a man gets older. An enlarged prostate can press on the urethra. This can make it harder to pass urine. The build-up of urine in the bladder can cause infection. Back pressure and infection may progress to bladder damage and kidney (renal) failure. What are the causes? This condition is part of a normal aging process. However, not all men develop problems from this condition. If the prostate enlarges away from the urethra, urine flow will not be blocked. If it enlarges toward the urethra and compresses it, there will be problems passing urine. What increases the risk? This condition is more likely to develop in men over the age of 50 years. What are the signs or symptoms? Symptoms of this condition include: Getting up often during the night to urinate. Needing to urinate frequently during the day. Difficulty starting urine flow. Decrease in size and strength of your urine stream. Leaking (dribbling) after urinating. Inability to pass urine. This needs immediate treatment. Inability to completely empty your bladder. Pain when you pass urine. This is more common if there is also an infection. Urinary tract infection (UTI). How is this diagnosed? This condition is diagnosed based on your medical history, a physical exam, and your symptoms. Tests will also be done, such as: A post-void bladder scan. This measures any amount of urine that may remain in your bladder after you finish urinating. A digital rectal exam. In a rectal exam, your health care provider checks your prostate by putting a lubricated, gloved finger into your rectum to feel the back of your prostate gland. This exam detects the size of your gland and any abnormal lumps or growths. An exam of your urine (urinalysis). A prostate specific antigen (PSA) screening. This is a blood test used to screen for prostate cancer. An ultrasound. This test uses sound waves to electronically produce a picture of your prostate gland. Your health care provider may refer you to a specialist in kidney and prostate diseases (urologist). How is this treated? Once symptoms begin, your health care provider will monitor your condition (active surveillance or watchful waiting). Treatment for this condition will depend on the severity of your condition. Treatment may include: Observation and yearly exams. This may be the only treatment needed if your condition and symptoms are mild. Medicines to relieve your symptoms, including: ?Medicines to shrink the prostate. ?Medicines to relax the muscle of the prostate. Surgery in severe cases. Surgery may include: ?Prostatectomy. In this procedure, the prostate tissue is removed completely through an open incision or with a laparoscope or robotics. ?Transurethral resection of the prostate (TURP). In this procedure, a tool is inserted through the opening at the tip of the penis (urethra). It is used to cut away tissue of the inner core of the prostate. The pieces are removed through the same opening of the penis. This removes the blockage. ?Transurethral incision (TUIP). In this procedure, small cuts are made in the prostate. This lessens the prostate's pressure on the urethra. ?Transurethral microwave thermotherapy (TUMT). This procedure uses microwaves to create heat. The heat destroys and removes a small amount of prostate tissue. ?Transurethral needle ablation (TUNA). This procedure uses radio frequencies to destroy and remove a small amount of prostate tissue. ?Interstitial laser coagulation (ILC). This procedure uses a laser to destroy and remove a small amount of prostate tissue. ?Transurethral electrovaporization (TUVP). This procedure uses electrodes to destroy and remove a small amount of prostate tissue. ?Prostatic urethral lift. This procedure inserts an implant to push the lobes of the prostate away from the urethra. Follow these instructions at home: Take [id number] and prescription medicines only as told by your health care provider. Monitor your symptoms for any changes. Contact your health care provider with any changes. Avoid drinking large amounts of liquid before going to bed or out in public. Avoid or reduce how much caffeine or alcohol you drink. Give yourself time when you urinate. Keep all follow-up visits as told by your health care provider. This is important. Contact a health care provider if: You have unexplained back pain. Your symptoms do not get better with treatment. You develop side effects from the medicine you are taking. Your urine becomes very dark or has a bad smell. Your lower abdomen becomes distended and you have trouble passing your urine. Get help right away if: You have a fever or chills. You suddenly cannot urinate. You feel lightheaded, or very dizzy, or you faint. There are large amounts of blood or clots in the urine. Your urinary problems become hard to manage. You develop moderate to severe low back or flank pain. The flank is the side of your body between the ribs and the hip. These symptoms may represent a serious problem that is an emergency. Do not wait to see if the symptoms will go away. Get medical help right away. Call your local emergency services (911 in the [place] Do not drive yourself to the hospital. Summary Benign prostatic hyperplasia (BPH) is an enlarged prostate that is caused by the normal aging process and not by cancer. An enlarged prostate can press on the urethra. This can make it hard to pass urine. This condition is part of a normal aging process and is more likely to develop in men over the age of 50 years. Get help right away if you suddenly cannot urinate. This information is not intended to replace advice given to you by your health care provider. Make sure you discuss any questions you have with your health care provider. Document Released: 06/12/2006 Document Revised: 05/07/2019 Document Reviewed: 07/17/2017 [employer] Patient Education 2019 [employer]. Follow Up Care 02/03/2021 15:56:19 With:JIGNA MONTALVO, Vamsi Cao, URL Address: [address] [place] [phone] When:Within 1 Year(s) [facility] Evaluation + Plan note Note Date & Type Note Facility Evaluation + Plan note Future Appointments Appointment Date:02/10/2023 10:15:00 AM Scheduled Provider:Vamsi BENITO MD Location:[facility] Appointment Type:URO Office Visit Diagnostic Tests PendingPSA Total 10/24/22 [facility] Evaluation note Note Date & Type Note Facility Evaluation note Diagnosis Primary hypertension (CMS/HCC)- Primary Unspecified essential hypertension documented in this encounter [facility] Evaluation note Note Date & Type Note Facility Evaluation note Diagnosis Primary hypertension (CMS/HCC)- Primary Unspecified essential hypertension documented in this encounter [facility] Hospital course Narrative Note Date & Type Note Facility Hospital course Narrative No data available for this section [facility] Progress note Note Date & Type Note Facility Progress note No data available for this section [facility] Summary Purpose Family History No Family History Records FoundNo Family History Records FoundNo Family History Records Found Advance Directives No Advanced Directives Records FoundNo Advanced Directives Records FoundNo Advanced Directives Records Found Additional Source Comments Care Team (unrecognized sect ion and content) [employer] Relationship Specialty Start Date End Date José Manuel Reynaga MD [address] [place] [id number] PCP - General Family Medicine 07/28/23 Charleen Hatfield NP [address] [place] [id number] Nurse Practitioner Family Medicine 04/26/23 [employer] Relationship Specialty Start Date End Date José Manuel Reynaga MD [address] [place] [id number] PCP - General Family Medicine 07/28/23 Charleen Hatfield NP [address] [place] [id number] Nurse Practitioner Family Medicine 04/26/23 (unrecognized sect ion and content) No Status Records FoundNo Status Records FoundNo Status Records Found INFORMATION SOURCE (unrecogn ized section and content) DATE CREATED AUTHOR 09/30/2022 [facility] DATE CREATED AUTHOR AUTHOR'S ORGANIZ ATION 02/05/2023 [facility] DATE CREATED AUTHOR AUTHOR'S ORGANIZ ATION 11/29/2023 [facility] Specialists [facility] FOR RECORDS PERTAINING TO PATIENTS WHO ARE OR HAVE BEEN ENROLLED IN A CHEMICAL DEPENDENCY/SUBSTANCEABUSE PROGRAM, SOME INFORMATION MAY BE OMITTED. This clinical summary was aggregated from multiple sources. Caution should be exercised in using it in the provision of clinical care. This summary normalizes information from multiple sources, and as a consequence, information in this document may materially change the coding, format and clinical context of patient data. In addition, data may be omitted in some cases. CLINICAL DECISIONS SHOULD BE BASED ON THE PRIMARY CLINICAL RECORDS. [employer] provides no warranty or guarantee of the accuracy or completeness of information in this document.
[2023-12-28 04:07] LABS: PSA, Free 1.67 ng/mL
== END 2023-12-27 09:31 | disposition home or self-care (01) ==
PROVIDERS: PCP Nurse Practitioner; Visit Provider Urology
DX: R97.20 Elevated prostate specific antigen [PSA] (principal)
CPT/HCPCS: 36415; 84153; 84154

== ENCOUNTER 2024-01-18 10:31 | Outpatient (OUT) | payer MEDICARE, BC, SELFPAY ==
--- OUTSIDE RECORDS SUMMARY | 2024-01-18 10:47 | XMS_ITS | CCD ---
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 [facility] Comment on above: Performed By: #### C MP, LIPID #### [facility] [address] [address] [address] Navjot Fitzgerald EGFR-NON AF COLOMBIAN >60 Normal >=60 [facility] Comment on above: Performed By: #### C MP, LIPID #### [facility] [address] [address] [address] Navjot Fitzgerald Globulin (S) [Mass/Vol] 3.4 g/dL Normal [facility] Comment on above: Performed By: #### C MP, LIPID #### [facility] [address] [address] [address] Navjot Fitzgerald Glucose [Mass/Vol] 105 mg/dL Normal 74-106 [facility] Comment on above: Performed By: #### C MP, LIPID #### [facility] [address] [address] [address] Navjot Fitzgerald Potassium [Moles/Vol] 4.0 mmol/L Normal 3.5-5.1 [facility] Comment on above: Performed By: #### C MP, LIPID #### [facility] [address] [address] [address] Navjot Fitzgerald Protein [Mass/Vol] 7.2 g/dL Normal 6.4-8.2 [facility] Comment on above: Performed By: #### C MP, LIPID #### [facility] [address] [address] [address] Navjot Fitzgerald Sodium [Moles/Vol] 144 mmol/L Normal 136-145 [facility] Comment on above: Performed By: #### C MP, LIPID #### [facility] [address] [address] [address] Navjot Fitzgerald Urea nitrogen [Mass/Vol] 21.0 mg/dL Critically high 7.0-18 .0 [facility] Comment on above: Performed By: #### C MP, LIPID #### [facility] [address] [address] [address] Navjot Fitzgerald Urea nitrogen/Creatinine [Mass ratio] 21.0 mg/mg Normal [facility] Comment on above: Performed By: #### C MP, LIPID #### [facility] [address] [place] [address] Dr. Navjot Fitzgerald UA RANDOM W/MICROSCOPICon BACTERIA NONE SEEN Normal NONE SEEN [facility] Comment on above: Performed By: #### U AMIC #### [facility] [address] [place] [address] Dr. Navjot Fitzgerald Bilirubin Ql (U) Negative Normal NEGATIVE [facility] Comment on above: Performed By: #### U AMIC #### [facility] [address] [place] [address] Dr. Navjot Fitzgerald CAST NONE SEEN Normal NONE SEEN [facility] Comment on above: Performed By: #### U AMIC #### [facility] [address] [place] [address] Dr. Navjot Fitzgerald Clarity (U) CLEAR Normal CLEAR [facility] Comment on above: Performed By: #### U AMIC #### [facility] [address] [place] [address] Dr. Navjot Fitzgerald Color (U) LT. YELLOW Normal YELLOW [facility] Comment on above: Performed By: #### U AMIC #### [facility] [address] [place] [address] Dr. Navjot Fitzgerald Crystals LM Nom (Urine sed) NONE SEEN Normal NONE SEEN [facility] Comment on above: Performed By: #### U AMIC #### [facility] [address] [place] [address] Dr. Navjot Fitzgerald Epithelial cells LM Ql (Urine sed) NONE SEEN Normal NONE SEEN /RARE [facility] Comment on above: Performed By: #### U AMIC #### [facility] [address] [address] [address] Navjot Fitzgerald Glucose Ql (U) Negative Normal NEGATIVE [facility] Comment on above: Performed By: #### U AMIC #### [facility] [address] [address] [address] Navjot Fitzgerald Hemoglobin Ql (U) Negative Normal NEGATIVE [facility] Comment on above: Performed By: #### U AMIC #### [facility] [address] [address] [address] Navjot Fitzgerald Ketones Ql (U) Negative Normal NEGATIVE [facility] Comment on above: Performed By: #### U AMIC #### [facility] [address] [address] [address] Navjot Fitzgerald LEUKOCYTES Negative Normal NEGATIVE [facility] Comment on above: Performed By: #### U AMIC #### [facility] [address] [address] [address] Navjot Fitzgerald MUCOUS NONE SEEN Normal NONE SEEN [facility] Comment on above: Performed By: #### U AMIC #### [facility] [address] [address] [address] Navjot Fitzgerald Nitrite Ql (U) Negative Normal NEGATIVE [facility] Comment on above: Performed By: #### U AMIC #### [facility] [address] [place] [address] Dr. Navjot Fitzgerald pH (U) 7.0 [pH] Normal 5-9 [facility] Comment on above: Performed By: #### U AMIC #### [facility] [address] [address] [address] Navjot Fitzgerald RBC NONE SEEN Abnormal 0-2 [facility] Comment on above: Performed By: #### U AMIC #### [facility] [address] [place] [address] Dr. Navjot Fitzgerald SPEC GRAVITY 1.010 Normal 1.005-<=1.02 5 [facility] Comment on above: Performed By: #### U AMIC #### [facility] [address] [place] [address] Dr. Navjot Fitzgerald UA PROTEIN Negative Normal NEGATIVE/ TRACE [facility] Comment on above: Performed By: #### U AMIC #### [facility] [address] [place] [address] Dr. Navjot Fitzgerald Urobilinogen Qn (U) 0.2 {Marita'U}/dL Normal 0.2 - 1. 0 [facility] Comment on above: Performed By: #### U AMIC #### [facility] [address] [place] [address] Dr. Navjot Fitzgerald WBC NONE SEEN Normal NONE SEEN [facility] Comment on above: Performed By: #### U AMIC #### [facility] [address] [place] [address] Dr. Navjot Fitzgerald QUANTIFERON TB GOLD PLUSon 0 07-30-2022 QuantiFERON Criteria Comment Normal [facility] Comment on above: Result Comment: Braden tiFERON-TB [...] test. Performed By: #### Q NTTB #### [facility] [address] [place] [address] Dr. Navjot Fitzgerald QuantiFERON Incubation Incubation performed. Normal [facility] Comment on above: Performed By: #### Q NTTB #### [facility] [address] [place] [address] Dr. Navjot Fitzgerald QuantiFERON Mitogen Value >10.00 Normal [facility] Comment on above: Performed By: #### Q NTTB #### [facility] [address] [place] [address] Dr. Navjot Fitzgerald QuantiFERON Nil Value 0.02 IU/mL Normal [facility] Comment on above: Performed By: #### Q NTTB #### [facility] [address] [place] [address] Dr. Navjot Fitzgerald QuantiFERON TB1 Ag Value 0.02 IU/mL Normal [facility] Comment on above: Performed By: #### Q NTTB #### [facility] [address] [address] [address] Navjot Fitzgerald QuantiFERON TB2 Ag Value 0.02 IU/mL Normal [facility] Comment on above: Performed By: #### Q NTTB #### [facility] [address] [address] [address] Navjot Fitzgerald QuantiFERON-TB Gold Plus Negative Normal Negative [facility] Comment on above: Result Comment: No r esponse to M tuberculosis antigens detected. Infection with M tuberculosis is unlikely, but high risk individuals should be considered for additional testing (ATS/IDSA/CDC Clinical Practice Guidelines, 2017). The reference range is an Antigen minus Nil result of <0.35 IU/mL. Chemiluminescence immunoassay methodology Performed By: #### Q NTTB #### [facility] [address] [place] [address] Dr. Navjot Fitzgerald US MINDY DOP LEG RTon 04-14-20 US MINDY DOP LEG RT ULTRASOUND RIGHT LOWER EXTREMITY COLOR VENOUS DUPLEX HISTORY: Swelling. Pain. [...] MIKAELA BARRERA Date: 2022-04-14 16:06 Normal [facility] LIVER PROFILEon 10-14-2021 Albumin [Mass/Vol] 3.6 g/dL Normal 3.4-5.0 [facility] Comment on above: Performed By: #### L IVER #### [facility] [address] [address] [address] Navjot Fitzgerald Albumin/Globulin [Mass ratio] 1.0 {ratio} Normal [facility] Comment on above: Performed By: #### L IVER #### [facility] [address] [address] [address] Navjot Fitzgerald ALP [Catalytic activity/Vol] 107 U/L Normal 46-116 [facility] Comment on above: Performed By: #### L IVER #### [facility] [address] [address] [address] Navjot Fitzgerald ALT [Catalytic activity/Vol] 50 U/L Normal 16-63 [facility] Comment on above: Performed By: #### L IVER #### [facility] [address] [address] [address] Navjot Fitzgerald AST [Catalytic activity/Vol] 25 U/L Normal 15-37 [facility] Comment on above: Performed By: #### L IVER #### [facility] [address] [place] [address] Dr. Navjot Fitzgerald BILI, CONJUGATED 0.2 mg/dL Normal 0.0-0.3 [facility] Comment on above: Performed By: #### L IVER #### [facility] [address] [place] [address] Dr. Navjot Fitzgerald Bilirubin [Mass/Vol] 0.6 mg/dL Normal 0.2-1.3 [facility] Comment on above: Performed By: #### L IVER #### [facility] [address] [place] [address] Dr. Navjot Fitzgerald Globulin (S) [Mass/Vol] 3.5 g/dL Normal [facility] Comment on above: Performed By: #### L IVER #### [facility] [address] [address] [address] Navjot Fitzgerald Protein [Mass/Vol] 7.1 g/dL Normal 6.1-8.2 [facility] Comment on above: Performed By: #### L IVER #### [facility] [address] [place] [address] Dr. Navjot Fitzgerald QUANTIFERON TB GOLD PLUSon 0 10-03-2021 QuantiFERON Criteria Comment Normal [facility] Comment on above: Result Comment: The QuantiFERON-TB Gold Plus result is determined by subtracting the Nil value from either TB antigen (Ag) tube. The mitogen tube serves as a control for the test. Performed By: #### Q NTTB ####[facility] [address] [place], [place] [address]Dr. Navjot Fitzgerald QuantiFERON Incubation Incubation performed. Normal [facility] Comment on above: Performed By: #### Q NTTB ####[facility] [address] [place], [place] [address]Dr. Navjot Fitzgerald QuantiFERON Mitogen Value >10.00 Normal [facility] Comment on above: Performed By: #### Q NTTB ####[facility] [address] [place], [place] [address]Dr. Navjot Fitzgerald QuantiFERON Nil Value 0.05 IU/mL Normal [facility] Comment on above: Performed By: #### Q NTTB ####[facility] [address] [place], [place] [address]Dr. Navjot Fitzgerald QuantiFERON TB1 Ag Value 0.05 IU/mL Normal [facility] Comment on above: Performed By: #### Q NTTB ####[facility] [address] [place], [place] [address]Dr. Navjot Fitzgerald QuantiFERON TB2 Ag Value 0.06 IU/mL Normal [facility] Comment on above: Performed By: #### Q NTTB ####[facility] [address] [place], [place] [address]Dr. Navjot Fitzgerald QuantiFERON-TB Gold Plus Negative Normal Negative [facility] Comment on above: Result Comment: Chem iluminescence immunoassay methodology Performed By: #### Q NTTB ####[facility] [address] [place], [place] [address]Dr. Navjot Fitzgerald CBC AUTO DIFFon 09-30-2021 BASO # 0.0 103/ul Normal 0.0-0.1 [facility] Comment on above: Performed By: #### C BC #### [facility] [address] [address] [address] Navjot Fitzgerald Basophils/100 WBC (Bld) 0.5 % Normal 0.2-2.0 [facility] Comment on above: Performed By: #### C BC #### [facility] [address] [address] [address] Navjot Fitzgerald EO # 0.2 103/ul Normal 0.0-0.7 [facility] Comment on above: Performed By: #### C BC #### [facility] [address] [place] [address] Dr. Navjot Fitzgerald Eosinophils/100 WBC (Bld) 4.2 % Normal 0.9-7.0 [facility] Comment on above: Performed By: #### C BC #### [facility] [address] [place] [address] Dr. Navjot Fitzgerald Erythrocyte distribution width (RBC) [Ratio] 12.3 % Normal 11.0-15.0 [facility] Comment on above: Performed By: #### C BC #### [facility] [address] [place] [address] Dr. Navjot Fitzgerald Hematocrit (Bld) [Volume fraction] 45.5 % Normal 42.0-54.0 [facility] Comment on above: Performed By: #### C BC #### [facility] [address] [place] [address] Dr. Navjot Fitzgerald Hemoglobin (Bld) [Mass/Vol] 15.8 g/dL Normal 14.0-18.0 [facility] Comment on above: Performed By: #### C BC #### [facility] [address] [place] [address] Dr. Navjot Fitzgerald IG # 0.03 10e3/ul Normal 0.00-0.03 [facility] Comment on above: Performed By: #### C BC #### [facility] [address] [place] [address] Dr. Navjot Fitzgerald IG % 0.5 % Normal 0.0-0.5 [facility] Comment on above: Performed By: #### C BC #### [facility] [address] [place] [address] Dr. Navjot Fitzgerald LYMPH # 1.7 103/ul Normal 1.2-3.8 [facility] Comment on above: Performed By: #### C BC #### [facility] [address] [place] [address] Dr. Navjot Fitzgerald Lymphocytes/100 WBC (Bld) 29.6 % Normal 20.5-60.0 [facility] Comment on above: Performed By: #### C BC #### [facility] [address] [place] [address] Dr. Navjot Fitzgerald MANUAL DIFF REQ NO Normal [facility] Comment on above: Performed By: #### C BC #### [facility] [address] [place] [address] Dr. Navjot Fitzgerald MCH (RBC) [Entitic mass] 31.3 pg Normal 25.9-34.0 [facility] Comment on above: Performed By: #### C BC #### [facility] [address] [place] [address] Dr. Navjot Fitzgerald MCHC (RBC) [Mass/Vol] 34.7 g/dL Normal 29.9-35.2 [facility] Comment on above: Performed By: #### C BC #### [facility] [address] [place] [address] Dr. Navjot Fitzgerald MCV (RBC) [Entitic vol] 90.3 fL Normal 80.0-94.0 [facility] Comment on above: Performed By: #### C BC #### [facility] [address] [place] [address] Dr. Navjot Fitzgerald MONO # 0.6 103/ul Normal 0.3-0.8 [facility] Comment on above: Performed By: #### C BC #### [facility] [address] [place] [address] Dr. Navjot Fitzgerald Monocytes/100 WBC (Bld) 10.6 % Normal 1.7-12.0 [facility] Comment on above: Performed By: #### C BC #### [facility] [address] [place] [address] Dr. Navjot Fitzgerald NEUT # 3.2 103/ul Normal 1.4-6.5 [facility] Comment on above: Performed By: #### C BC #### [facility] [address] [place], [place] [address] Dr. Navjot Fitzgerald Neutrophils/100 WBC (Bld) 54.6 % Normal 43.0-75.0 [facility] Comment on above: Performed By: #### C BC #### [facility] [address] [place], [place] [address] Dr. Navjot Fitzgerald Platelet mean volume (Bld) [Entitic vol] 9.2 fL Critically low 9.5-13.5 [facility] Comment on above: Performed By: #### C BC #### [facility] [address] [address] [address] Navjot Fitzgerald PLT 237 103/ul Normal 150-450 [facility] Comment on above: Performed By: #### C BC #### [facility] [address] [address] [address] Navjot Fitzgerald RBC 5.04 106/ul Normal 4.70-6.10 [facility] Comment on above: Performed By: #### C BC #### [facility] [address] [address] [address] Navjot Fitzgerald WBC 5.8 103/ul Normal 4.0-11.0 [facility] Comment on above: Performed By: #### C BC #### [facility] [address] [address] [address] Navjot Fitzgerald LIPID PROFILEon 09-30-2021 CHOL-HDL RATIO NORM SEE BELOW Normal [facility] Comment on above: Result Comment: 3.3 - 4.4 LOW RISK 4.4 - 7.1 AVERAGE RISK 7.1 - 11.0 MODERATE RISK >11.0 HIGH RISK Performed By: #### C MP, LIPID ####[facility] [address] [place], [place] [address]NpDr. Navjot Fitzgerald Cholesterol [Mass/Vol] 128 mg/dL Normal <=200 Th [facility] Comment on above: Performed By: #### C MP, LIPID ####[facility] [address] [place], [place] [address]ZyDr. Navjot Fitzgerald Cholesterol in HDL [Mass/Vol] 42 mg/dL Normal 40-60 [facility] Comment on above: Performed By: #### C MP, LIPID ####[facility] [address] [address]Dr. Navjot Fitzgerald Cholesterol in LDL [Mass/Vol] 72.6 mg/dL Normal [facility] Comment on above: Performed By: #### C MP, LIPID ####[facility] [address] [address]Dr. Navjot Fitzgerald Cholesterol.total/Choles terol in HDL [Mass ratio] 3.0 {ratio} Normal [facility] Comment on above: Performed By: #### C MP, LIPID ####[facility] [address] [address]Dr. Navjot Fitzgerald HDL NORMAL > or = 60 mg/dl - LO W CARDIOVASCULAR RISK <40 mg/dl - HIGH CARDIOVASCULAR RISK Normal [facility] Comment on above: Performed By: #### C MP, LIPID ####[facility] [address] [address]Dr. Navjot Fitzgerald LDL CALC NORMAL SEE BELOW Normal [facility] Comment on above: Result Comment: <100 mg/dl OPTIMAL 100 - 129 mg/dl NEAR OR ABOVE OPTIMAL 130 - 159 mg/dl BORDERLINE HIGH 160 - 189 mg/dl HIGH >190 mg/dl VERY HIGH Performed By: #### C MP, LIPID ####[facility] [address] [place] [id number]. Navjot Fitzgerald Triglyceride [Mass/Vol] 67 mg/dL Normal <=150 [facility] Comment on above: Performed By: #### C MP, LIPID ####[facility] [address] [place] [id number]. Navjot Fitzgerald VLDL CALC 13.4 mg/dL Normal [facility] Comment on above: Performed By: #### C MP, LIPID ####[facility] [address] [place] [address]Dr. Navjot Fitzgerald PROF 14(COMP METB)on 022 Albumin [Mass/Vol] 3.4 g/dL Normal 3.4-5.0 [facility] Comment on above: Performed By: #### C MP, LIPID ####[facility] [address] [place] [address]Dr. Navjot Fitzgerald Albumin/Globulin [Mass ratio] 0.9 {ratio} Normal [facility] Comment on above: Performed By: #### C MP, LIPID ####[facility] [address]ed[address] [place] [address]Dr. Navjot Fitzgerald ALP [Catalytic activity/Vol] 106 U/L Normal 46-116 [facility] Comment on above: Performed By: #### C MP, LIPID ####[facility] [address] [place] [address]Dr. Navjot Fitzgerald ALT [Catalytic activity/Vol] 74 U/L Critically high 16-63 [facility] Comment on above: Result Comment: SPEC IMEN SLIGHTLY HEMOLIZED--NOTIFY LAB IF REDRAW REQUESTED Performed By: #### C MP, LIPID ####[facility] [address] [place] [address]Dr. Navjot Fitzgerald Anion gap [Moles/Vol] 12.5 mmol/L Normal [facility] Comment on above: Performed By: #### C MP, LIPID ####[facility] [address] [place], [place] [address]Dr. Navjot Fitzgerald AST [Catalytic activity/Vol] 65 U/L Critically high 15-37 [facility] Comment on above: Result Comment: SPEC IMEN SLIGHTLY HEMOLIZED--NOTIFY LAB IF REDRAW REQUESTED Performed By: #### C MP, LIPID ####[facility] Eg[address]aqj[address] [place] [address]Dr. Navjot Fitzgerald Bilirubin [Mass/Vol] 0.8 mg/dL Normal 0.2-1.3 [facility] Comment on above: Performed By: #### C MP, LIPID ####[facility] [address] [place] [address]Dr. Navjot Fitzgerald Calcium [Mass/Vol] 8.6 mg/dL Normal 8.5-10.1 [facility] Comment on above: Performed By: #### C MP, LIPID ####[facility] [address] [place] [id number]. Navjot Fitzgerald Chloride [Moles/Vol] 103 mmol/L Normal 98-107 [facility] Comment on above: Performed By: #### C MP, LIPID ####[facility] [address] [place] [address]Dr. Navjot Fitzgerald CO2 [Moles/Vol] 27.7 mmol/L Normal 22.0-30.0 [facility] Comment on above: Performed By: #### C MP, LIPID ####[facility] [address] [place] [address]Dr. Navjot Fitzgerald Creatinine [Mass/Vol] 0.74 mg/dL Normal 0.66-1.25 [facility] Comment on above: Performed By: #### C MP, LIPID ####[facility] [address] [place] [address]Dr. Navjot Fitzgerald EGFR-AF COLOMBIAN >60 Normal >=60 [facility] Comment on above: Performed By: #### C MP, LIPID ####[facility] [address] [place] [address]Dr. Najvot Fitzgerald EGFR-NON AF COLOMBIAN >60 Normal >=60 [facility] Comment on above: Performed By: #### C MP, LIPID ####[facility] A[address]yp[address]udg[address] [place] [address]Dr. Navjot Fitzgerald Globulin (S) [Mass/Vol] 3.8 g/dL Normal [facility] Comment on above: Performed By: #### C MP, LIPID ####[facility] [address] [place] [address]Dr. Navjot Fitzgerald Glucose [Mass/Vol] 98 mg/dL Normal 74-106 [facility] Comment on above: Performed By: #### C MP, LIPID ####[facility] [address]uccf[address] [place] [address]Dr. Navjot Fitzgerald Potassium [Moles/Vol] 4.2 mmol/L Normal 3.4-5.0 [facility] Comment on above: Result Comment: SPEC IMEN SLIGHTLY HEMOLIZED--NOTIFY LAB IF REDRAW REQUESTED Performed By: #### C MP, LIPID ####[facility] [address] [place] [id number]. Navjot Fitzgerald Protein [Mass/Vol] 7.2 g/dL Normal 6.1-8.2 [facility] Comment on above: Performed By: #### C MP, LIPID ####[facility] [address]om[address] [place] [id number]. Navjot Fitzgerald Sodium [Moles/Vol] 139 mmol/L Normal 137-145 [facility] Comment on above: Performed By: #### C MP, LIPID ####[facility] [address] [place] [address]Dr. Navjot Fitzgerald Urea nitrogen [Mass/Vol] 20.0 mg/dL Critically high 7.0-18 .0 [facility] Comment on above: Performed By: #### C MP, LIPID ####[facility] [address] [place] [address]Dr. Navjot Fitzgerald Urea nitrogen/Creatinine [Mass ratio] 27.0 mg/mg Normal [facility] Comment on above: Performed By: #### C MP, LIPID ####[facility] [address] [place] [address]Dr. Navjot Fitzgerald UA RANDOM W/MICROSCOPICon BACTERIA TRACE Abnormal NONE SEEN [facility] Comment on above: Performed By: #### U AMIC #### [facility] [address] [place] [address] [address] Navjot Fitzgerald Bilirubin Ql (U) Negative Normal NEGATIVE [facility] Comment on above: Performed By: #### U AMIC #### [facility] [address] [place] [address] [address] Navjot Fitzgerald CAST NONE SEEN Normal NONE SEEN [facility] Comment on above: Performed By: #### U AMIC #### [facility] [address] [place] [address] [address] Navjot Fitzgerald Clarity (U) SL CLOUDY Abnormal CLEAR [facility] Comment on above: Performed By: #### U AMIC #### [facility] [address] [address] [address] Navjot Fitzgerald Crystals LM Nom (Urine sed) NONE SEEN Normal NONE SEEN [facility] Comment on above: Performed By: #### U AMIC #### [facility] [address] [address] [address] Navjot Fitzgerald Epithelial cells LM Ql (Urine sed) RARE Normal NONE SEEN /RARE [facility] Comment on above: Performed By: #### U AMIC #### [facility] [address] [address] [address] Navjot Fitzgerald Glucose Ql (U) Negative Normal NEGATIVE [facility] Comment on above: Performed By: #### U AMIC #### [facility] [address] [address] [address] Navjot Fitzgerald Hemoglobin Ql (U) TRACE-LYSED Abnormal NEGATIVE [facility] Comment on above: Performed By: #### U AMIC #### [facility] [address] [place] [address] Dr. Navjot Fitzgerald Ketones Ql (U) Negative Normal NEGATIVE [facility] Comment on above: Performed By: #### U AMIC #### [facility] [address] [address] [address] Navjot Fitzgerald LEUKOCYTES Negative Normal NEGATIVE [facility] Comment on above: Performed By: #### U AMIC #### [facility] [address] [address] [address] Navjot Fitzgerald MUCOUS TRACE Abnormal NONE SEEN [facility] Comment on above: Performed By: #### U AMIC #### [facility] [address] [address] [address] Navjot Fitzgerald Nitrite Ql (U) Negative Normal NEGATIVE [facility] Comment on above: Performed By: #### U AMIC #### [facility] [address] [address] [address] Navjot Fitzgerald pH (U) 6.0 [pH] Normal 5-9 [facility] Comment on above: Performed By: #### U AMIC #### [facility] [address] [address] [address] Navjot Fitzgerald RBC 0-2 Normal 0-2 [facility] Comment on above: Performed By: #### U AMIC #### [facility] [address] [address] [address] Navjot Fitzgerald SPEC GRAVITY 1.015 Normal 1.005-<=1.02 5 [facility] Comment on above: Performed By: #### U AMIC #### [facility] [address] [address] [address] Navjot Fitzgerald UA PROTEIN Negative Normal NEGATIVE/ TRACE [facility] Comment on above: Performed By: #### U AMIC #### [facility] [address] [address] [address] Navjot Fitzgerald Urobilinogen Qn (U) 0.2 {Marita'U}/dL Normal 0.2 - 1. 0 [facility] Comment on above: Performed By: #### U AMIC #### [facility] [address] [address] [address] Navjot Fitzgerald WBC NONE SEEN Normal NONE SEEN [facility] Comment on above: Performed By: #### U AMIC #### [facility] [address] [address] [address] Navjot Fitzgerald Vital Signs Date Time Vital Sign Value Performing Clinician Heribertoi lity 01-11-2024 16:00-0400 Body temperature 98 [degF] [facility] 01-11-2024 15:30-0400 Diastolic blood pressure 67 mm[Hg] [facility] 01-11-2024 15:30-0400 Heart rate 60 /min [facility] 01-11-2024 15:30-0400 Respiratory rate 16 /min [facility] 01-11-2024 15:30-0400 SaO2% (BldA) [Mass fraction] 96 % [facility] 01-11-2024 15:30-0400 Systolic blood pressure 139 mm[Hg] [facility] 01-11-2024 13:50-0400 Body height 172.72 cm [facility] 01-11-2024 13:50-0400 Body weight 101.7 kg [facility] 12-29-2023 12:18-0400 Diastolic blood pressure 68 mm[Hg] [facility] 12-29-2023 12:18-0400 Heart rate 77 /min [facility] 12-29-2023 12:18-0400 Respiratory rate 18 /min [facility] 12-29-2023 12:18-0400 SaO2% (BldA) [Mass fraction] 98 % [facility] 12-29-2023 12:18-0400 Systolic blood pressure 142 mm[Hg] [facility] 12-29-2023 10:35-0400 Body height 172.72 cm [facility] 12-29-2023 10:35-0400 Body weight 90.71 kg [facility] 12-29-2023 10:27-0400 Body temperature 97.9 [degF] [facility] Encounters Encounter Date Encounter Type Care Provider Facility Start: 02-05-2024 ambulatory Vamsi Frias ty:HARLAN Hernandez Start: 01-11-2024 End: 01-11-2024 Emergency department patient visit [facility] Work Phone: Start: 01-11-2024 End: 01-11-2024 ambulatory CHARLEEN AICHHOLZ Not Available Start: 12-29-2023 End: 12-29-2023 Emergency department patient visit [facility] Work Phone: Start: 11-28-2023 End: 11-28-2023 ambulatory GÓMEZ COELLO Not Available Start: 11-28-2023 End: 11-28-2023 ambulatory CHARLEEN AICHHOLZ Not Available Start: 09-19-2023 End: 09-19-2023 ambulatory GÓMEZ A BROWN Not Available Start: 09-04-2023 End: 09-04-2023 ambulatory CHARLEEN AICHHOLZ Not Available Start: 08-28-2023 End: 08-28-2023 ambulatory CHARLEEN AICHHOLZ Not Available Start: 08-10-2023 Refill 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 Phone: [facility] Comment on above: Primary hypertension (CMS/HCC) (Primary Dx) Start: 07-25-2023 End: 07-25-2023 ambulatory GÓMEZ COELLO Not Available Start: 07-11-2023 End: 07-11-2023 ambulatory GÓMEZ COELLO Not Available Start: 02-10-2023 ambulatory Vamsi BENITO Facili ty:[facility] Start: 09-21-2022 End: 09-22-2022 ambulatory TAE HATFIELD Facility:H1 Start: 07-28-2022 End: 07-29-2022 ambulatory TAE HATFIELD Facility:[facility]1 Start: 04-14-2022 End: 04-15-2022 ambulatory TAE HATFIELD Facility:[facility]1 Start: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
== END 2024-01-18 10:32 | disposition home or self-care (01) ==
LOC: CARD 10:31
PROVIDERS: PCP Nurse Practitioner; Visit Provider Nurse Practitioner
DX: R00.1 Bradycardia, unspecified (principal)
CPT/HCPCS: 93246

== ENCOUNTER 2024-03-27 12:14 | Outpatient (OUT) | payer MEDICARE, BC, SELFPAY ==
--- NOTE | 2024-03-27 12:21 | US_ITS ---
The [place] [id number] Patient Name: HEATHER SALAZAR MRN: [id number] date: 1945 Sex: M Assigned Patient Location: Current Patient Location: Accession/Order Number: [id number] Exam Date: 03/27/2024 12:25 Report Date: 03/27/2024 12:51 At the request of: RYAN PRESCOTT Procedure: US venous doppler LE LT Ultrasound venous duplex scan left lower extremity CLINICAL: Left lower extremity redness. TECHNIQUE: Rush-scale, color Doppler and Duplex examination of the left lower extremity was performed with and without provocative maneuvers. FINDINGS: Comparison: None. Sonographic examination of the left lower extremity deep venous system to include the common femoral, superficial femoral and popliteal veins, demonstrates normal compressibility, color-flow, respiratory variation, and augmentation. The origin of the greater saphenous vein demonstrates normal compression, and there is normal color-flow in the proximal profunda femoral vein. There is normal compressibility of the peroneal, anterior tibial, and posterior tibial veins. Normal compression of the greater saphenous and small saphenous veins in the calf. There is nonspecific subcutaneous edema of the left calf in area of redness.. US/US venous doppler LE LT IMPRESSION: 1. Negative for deep venous thrombosis in the left lower extremity. 2. Negative for superficial venous thrombus in the small saphenous veins in the left calf. 3. Nonspecific subcutaneous edema of the left calf in area of redness. Electronically authenticated by: JAMAL KAISER Date: 03/27/2024 12:51
--- OUTSIDE RECORDS SUMMARY | 2024-03-27 12:22 | XMS_ITS | CCD ---
Author Organization [facility] Inform ion Partnership [facility] Care Team Providers Care 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 Name Role Phone SEE YOUNG Primary Care Physician AICHHOLZ, SENIOR IT SECURITY ANALYST CHARLEEN Attending Unavailable LISA BETHANY E Primary Care Unavailable AICHHOLZ, SENIOR IT SECURITY ANALYST CHARLEEN Admitting Unavailable AICHHOLZ, SENIOR IT SECURITY ANALYST CHARLEEN Consulting Unavailable LISA BETHANY E Primary Care Unavailable MISC, DR WOO Admitting Unavailable MISC, DR WOO Consulting Unavailable MISC, DR WOO Attending Unavailable AICHHOLZ, SENIOR IT SECURITY ANALYST CHARLEEN Attending Unavailable AICHHOLZ, SENIOR IT SECURITY ANALYST CHARLEEN Admitting Unavailable LISA BETHANY E Primary Care Unavailable AICHHOLZ, SENIOR IT SECURITY ANALYST CHARLEEN Consulting Unavailable BENITO ., DR VILLAFUERTE Admitting Unavailable BENITO ., DR VILLAFUERTE Consulting Unavailable BENITO ., DR VILLAFUERTE Attending Unavailable AICHHOLZ, SENIOR IT SECURITY ANALYST CHARLEEN Primary Care Unavailable AICHHOLZ, SENIOR IT SECURITY ANALYST CHARLEEN Admitting Unavailable AICHHOLZ, SENIOR IT SECURITY ANALYST CHARLEEN Primary Care Unavailable AICHHOLZ, SENIOR IT SECURITY ANALYST CHARLEEN Consulting Unavailable AICHHOLZ, SENIOR IT SECURITY ANALYST CHARLEEN Attending Unavailable Raciel Barrerao Consulting Unavailable AICHHOLZ, SENIOR IT SECURITY ANALYST CHARLEEN Primary Care Unavailable MISC, DR WOO Admitting Unavailable MISC, DR WOO Consulting Unavailable MISC, DR WOO Attending Unavailable AICHHOLZ, SENIOR IT SECURITY ANALYST CHARLEEN Admitting Unavailable AICHHOLZ, SENIOR IT SECURITY ANALYST CHARLEEN Primary Care Unavailable AICHHOLZ, SENIOR IT SECURITY ANALYST CHARLEEN Consulting Unavailable AICHHOLZ, SENIOR IT SECURITY ANALYST CHARLEEN Attending Unavailable Aichholz MULTILITH OPERATOR, Charleen Unavailable José Manuel Reynaga MD Primary Care Provider NON STAFF Primary Care Provider UnavailDO Vamsi Resendez Emergency Provider MD Kat Hua Emergency Provider [phone] NON STAFF Primary Care Unavailable Kat Hua Admitting Unavailable Kat Hua Attending Unavailable NON STAFF Primary Care Unavailable Vamsi Angelo Admitting Unavailable Gi, Vamsi Sykes Attending Unavailable Vamsi BENITO Attending Unavailable Vamsi BENITO Attending Unavailable GÓMEZ COELLO Attending Unavailable GÓMEZ COELLO Attending Unavailable KENYON, CHARLEEN Attending Unavailable KENYON, CHARLEEN Attending Unavailable GÓMEZ COELLO Attending Unavailable KENYON, CHARLEEN Attending Unavailable GÓMEZ COELLO Attending Unavailable KENYON, CHARLEEN Attending Unavailable KENYON, CHARLEEN Attending Unavailable GÓMEZ COELLO Attending Unavailable KISHA CONCEPCION Attending Unavailable Allergies Allergy Classification Reported Allergen(s) Allergy Type Date of Onset Reaction(s) Facility (1 source) No Known Medication Allergies; Translations: [No Known Medication Allergies] Propensity to adverse reactions (disorder) [facility] Repository Medications Current Medications Medication Drug Class(es) [...] 90 tablet 1 08/10/2023 11/08/2023 Active Aspirin (2 sources) Platelet Aggregation Inhibitor, Nonsteroidal Anti-inflammatory Drug Start: 10-09-2019 aspirin Start Date: 10/09/19 Status: Ordered hydroCHLOROthiazide 12.5 mg / lisinopril 20 mg oral tablet (1 source) Thiazide Diuretic, Angiotensin Converting Enzyme Inhibitor Start: 01-11-2024 take 1 tablet by mouth once daily Lisinopril-Hyd rochlorothiazi de Active 1 TAB PO Daily January 11, 2024 12:00am Lisinopril (2 sources) Angiotensin Converting Enzyme Inhibitor Start: 10-09-2019 lisinopril Start Date: 10/09/19 Status: Ordered Problems Active Problems Problem Classification Problem Date Documented Date Episodic/Chronic Cancer of prostate (2 sources) 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 Cardiac dysrhythmias (1 source) Ventricular premature complex; 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) Pure hyperglyceridemia; Translations: [PURE HYPERGLYCERIDEMIA] Onset: 10-04-2021 Chronic Essential hypertension (7 sources) Hypertensive disorder; Translations: [Essential (primary) hypertension] Onset: 09-27-2022 Resolved: 06-07-2023 10-09-2019 Chronic Genitourinary symptoms and ill-defined conditions (6 sources) H/O: urethral stricture; Translations: [Microscopic hematuria] 10-09-2019 Episodic Hyperplasia of prostate (9 sources) Benign prostatic hypertrophy without outflow obstruction; Translations: [Benign prostatic hyperplasia without lower urinary tract symptoms] Onset: 02-01-2022 Chronic Nonspecific chest pain (1 source) Chest pain, unspecified; Translations: [Chest pain, unspecified] Onset: 01-11-2024 Episodic Other aftercare (2 sources) Long-term current use of anticoagulant 10-09-2019 Episodic Other aftercare (1 source) 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; Translations: [OTH POWER SAW OPERATOR CURRENT DRUG THERAPY] Onset: 07-31-2022 Episodic Other inflammatory condition of skin (4 sources) Psoriasis vulgaris; Translations: [PSORIASIS VULGARIS] Onset: 07-28-2022 Chronic Other screening for suspected conditions (not mental disorders or infectious disease) (8 sources) Raised prostate specific antigen; Translations: [Elevated prostate specific antigen [PSA]] Onset: 10-14-2021 Episodic Screening and history of mental health and substance abuse codes (2 sources) Ex-smoker 10-09-2019 Episodic Superficial injury; contusion (2 [...] POP SPACE RIGHT KNEE] Onset: 04-18-2022 Episodic Unclassified (1 source) New Patient Onset: 02-09-2024 Results Test Name Value Interpretation Reference Range Facility Office Visiton 02-09-2024 Follow-up visit [id number] Heather Mcmahon Arik 1945 M Date Provider Department Center 02/09/2024 [id number] CONCEPCION CARD [facility] No family history on file Level of Service:05678 [place] OFFICE/OUTPATIENT NEW MODERATE MDM 45 MINUTES Reason for Visit and Comments: New Patient [Other] - Bradycardia Concerns: No further cardiac symptoms/concerns. Normal [facility] Alanine aminotransferase [En zymatic activity/volume] in Serum or PlasmaOrdered By: Kat Hua on 01-11-2024 ALT [Catalytic activity/Vol] 18 U/L Normal 7-52 [facility] Comment on above: Performed By: #### C BC, CMP, CK, HS TROP ####[address] Albumin [Mass/volume] in Ser um or Plasma by Bromocresol green (BCG) dye binding methoOrdered By: Kat Hua on 01-11-2024 Albumin BCG dye [Mass/Vol] 3.9 g/dL 3.5-5.7 [facility] Alkaline phosphatase [Enzyma tic activity/volume] in Serum or PlasmaOrdered By: Kat Hua on 01-11-2024 ALP [Catalytic activity/Vol] 117 U/L High 34-104 [facility] Comment on above: Performed By: #### C BC, CMP, CK, HS TROP ####[address] Aspartate aminotransferase [ Enzymatic activity/volume] in Serum or PlasmaOrdered By: Kat Hua on 01-11-2024 AST [Catalytic activity/Vol] 19 U/L Normal 13-39 [facility] Comment on above: Performed By: #### C BC, CMP, CK, HS TROP ####[address] Automated basophil %Ordered By: Kat Hua on 01-11-2024 Basophils/100 WBC (Bld) 0.9 % Normal . [facility] Comment on above: Performed By: #### C BC, CMP, CK, HS TROP ####[place] [id number] [facility] [[email or web address]] Automated basophil countOrde red By: Kat Hua on 01-11-2024 Basophils (Bld) [#/Vol] 0.1 10*3/uL Normal 0.0-0.2 [facility] Comment on above: Result Comment: PERF ORMED BY: [facility] [address] [place] [address] PATHOLOGIST BIAZZI NITRATOR OPERATOR OLENA ZULETA M.D. Performed By: #### C BC, CMP, CK, HS TROP ####[address] Automated blood monocyte cou ntOrdered By: Kat Hua on 01-11-2024 Monocytes (Bld) [#/Vol] 0.8 10*3/uL Normal 0.0-0.8 [facility] Comment on above: Performed By: #### C BC, CMP, CK, HS TROP ####[address] Automated eosinophil %Ordere d By: Kat Hua on 01-11-2024 Eosinophils/100 WBC (Bld) 1.7 % Normal . [facility] Comment on above: Performed By: #### C BC, CMP, CK, HS TROP ####[address] Automated eosinophil countOr dered By: Kat Hua on 01-11-2024 Eosinophils (Bld) [#/Vol] 0.1 10*3/uL Normal 0.0-0.45 [facility] Comment on above: Performed By: #### C BC, CMP, CK, HS TROP ####[address] Automated monocyte %Ordered By: Kat Hua on 01-11-2024 Monocytes/100 WBC (Bld) 12.4 % Normal . [facility] Comment on above: Performed By: #### C BC, CMP, CK, HS TROP ####[address] Automated neutrophil %Ordere d By: Kat Hua on 01-11-2024 Neutrophils/100 WBC (Bld) 65.6 % Normal . [facility] Comment on above: Performed By: #### C BC, CMP, CK, HS TROP ####[address] Bilirubin.total [Mass/volume ] in Serum or PlasmaOrdered By: Kat Hua on 01-11-2024 Bilirubin [Mass/Vol] 0.5 mg/dL Normal 0.3-1.0 [facility] Comment on above: Performed By: #### C BC, CMP, CK, HS TROP ####[place] [id number] [facility] [[email or web address]] Calcium [Mass/volume] in Ser um or PlasmaOrdered By: Kat Hua on 01-11-2024 Calcium [Mass/Vol] 9.1 mg/dL Normal 8.6-10.3 [facility] Comment on above: Performed By: #### C BC, CMP, CK, HS TROP ####[address] Carbon dioxide, total [Moles /volume] in Serum or PlasmaOrdered By: Kat Hua on 01-11-2024 CO2 [Moles/Vol] 30.4 mmol/L Normal 21.0-31.0 [facility] Comment on above: Performed By: #### C BC, CMP, CK, HS TROP ####[place] [id number] [facility] [[email or web address]] Chloride [Moles/volume] in [place] or PlasmaOrdered By: Kat Hua on 01-11-2024 Chloride [Moles/Vol] 105 mmol/L Normal 98-107 [facility] Comment on above: Performed By: #### C BC, CMP, CK, HS TROP ####[place] [id number] [facility] [[email or web address]] Complete Blood Count Auto Di ffon 01-11-2024 Mean Corpuscular HGB Conc 34.2 g/dL Normal 32.5-35.6 [facility] Comment on above: Performed By: #### C BC, CMP, CK, HS TROP ####[place] [id number] [place] Monocytes/100 WBC (Bld) 20.54 % High 0.00-20.00 [facility] Comment on above: Result Comment: For adults in ED, MDW > 20.0 may be associated with a higher risk of sepsis during the first 12 hrs of hospital admission Performed By: #### C BC, CMP, CK, HS TROP ####[place] [id number] NRBC% 0.0 /100{WBC} Normal 0-0.5 [facility] Comment on above: Performed By: #### C BC, CMP, CK, HS TROP ####[place] [id number] Comprehensive Metabolic Pane kyle 01-11-2024 Albumin [Mass/Vol] 3.9 g/dL Normal 3.5-5.7 [facility] Comment on above: Performed By: #### C BC, CMP, CK, HS TROP ####[place] [id number] Creatinine Clr Calc Pharmacy 70.52 Normal [facility] Comment on above: Result Comment: PERF ORMED BY: [facility] [address] [address] PATHOLOGIST BIAZZI NITRATOR OPERATOR OLENA ZULETA M.D. Performed By: #### C BC, CMP, CK, HS TROP ####[place] [id number] [place] [id number] [facility] [[email or web address]] GFR/1.73 sq M.predicted MDRD (S/P/Bld) [Vol rate/Area] mL/min/{1.73_m2} Normal [facility] Comment on above: Performed By: #### C BC, CMP, CK, HS TROP ####[place] [id number] Creatine kinase [Enzymatic a ctivity/volume] in Serum or PlasmaOrdered By: Kat Hua on 01-11-2024 CK [Catalytic activity/Vol] 128 U/L Normal 30-223 [facility] Comment on above: Performed By: #### C BC, CMP, CK, HS TROP ####[facility] [place] [address] [facility] [[email or web address]] Creatinine [Mass/volume] in Serum or PlasmaOrdered By: Kat Hua on 01-11-2024 Creatinine [Mass/Vol] 1.03 mg/dL Normal 0.70-1.30 [facility] Comment on above: Performed By: #### C BC, CMP, CK, HS TROP ####[facility] [place] [address] [facility] [[email or web address]] ECG 12 lead ECGon 01-11-2024 ECG 12 lead ECG [facility] Main [place] [address] [place] [address] Electrocardiograph Report Signed Patient: Heather Mcmahon MR#: [id number] : 1945 Acct:[id number] Age/Sex: 78 / M ADM Date: 01/11/24 Loc: ER Room: Type: [facility] ER Attending Dr: Ordering Provider: Kat [...] By: MUS Signed By Kat Hua MD 01/11/24 193 Normal [facility] Erythrocyte distribution wid th [Ratio] by Automated countOrdered By: Kat Hua on 01-11-2024 Erythrocyte distribution width (RBC) [Ratio] 13.1 % Normal 12.0-14.8 [facility] Comment on above: Performed By: #### C BC, CMP, CK, HS TROP ####[facility] [address] [place] [address] [facility] [[email or web address]] Erythrocytes [#/volume] in B lood by Automated countOrdered By: Kat Hua on 01-11-2024 RBC (Bld) [#/Vol] 4.77 10*6/uL Normal 3.90-5.60 [facility] Comment on above: Performed By: #### C BC, CMP, CK, HS TROP ####[place] [phone] [facility] [[email or web address]] Glucose [Mass/volume] in Ser um or PlasmaOrdered By: Kat Hua on 01-11-2024 Glucose [Mass/Vol] 103 mg/dL High 70-100 [facility] Comment on above: ADA recommended refe rence rangeRandom Glucose Reference Range is dependent on time and content of last meal. Glucose of more than 200 mg/dL in a nonstressed, ambulatory subject supports the diagnosis of Diabetes Mellitus. Result Comment: [place] om Glucose Reference Range is dependent on time and content of last meal. Glucose of more than 200 mg/dL in a nonstressed, ambulatory subject supports the diagnosis of Diabetes Mellitus. ADA recommended reference range Performed By: #### C BC, CMP, CK, HS TROP ####[place] [phone] [facility] [[email or web address]] Hematocrit [Volume Fraction] of Blood by Automated countOrdered By: Kat Hua on 01-11-2024 Hematocrit (Bld) [Volume fraction] 43.8 % Normal 38.8-50.0 [facility] Comment on above: Performed By: #### C BC, CMP, CK, HS TROP ####[place] [id number] [facility] [[email or web address]] Hemoglobin [Mass/volume] in BloodOrdered By: Kat Hua on 01-11-2024 Hemoglobin (Bld) [Mass/Vol] 15.0 g/dL Normal 13.0-17.0 [facility] Comment on above: Performed By: #### C BC, CMP, CK, HS TROP ####[place] [phone] [facility] [[email or web address]] Leukocytes [#/volume] correc wilfred for nucleated erythrocytes in Blood by Automated counOrdered By: Kat Hua on 01-11-2024 WBC corrected for nucl RBC Auto (Bld) [#/Vol] 6.6 10*3/uL 4.1-10.5 [facility] Leukocytes [#/volume] in Blo od by Automated countOrdered By: Kat Hua on 01-11-2024 WBC (Bld) [#/Vol] 6.6 10*3/uL Normal 4.1-10.5 [facility] Comment on above: Performed By: #### C BC, CMP, CK, HS TROP ####[address] Lymphocytes [#/volume] in Bl ood by Automated countOrdered By: Kat Hua on 01-11-2024 Lymphocytes (Bld) [#/Vol] 1.3 10*3/uL Normal 1.00-4.8 [facility] Comment on above: Performed By: #### C BC, CMP, CK, HS TROP ####[address] Lymphocytes/100 leukocytes i n Blood by Automated countOrdered By: Kat Hua on 01-11-2024 Lymphocytes/100 WBC (Bld) 19.4 % Normal . [facility] Comment on above: Performed By: #### C BC, CMP, CK, HS TROP ####[place] [phone] [facility] [[email or web address]] MCH [Entitic mass] by Automa wilfred countOrdered By: Kat Hua on 01-11-2024 MCH (RBC) [Entitic mass] 31.5 pg Normal 27.5-35.2 [facility] Comment on above: Performed By: #### C BC, CMP, CK, HS TROP ####[place] [phone] [facility] [[email or web address]] MCHC Auto (RBC) [Mass/Vol]Or dered By: Kat Hua on 01-11-2024 MCHC (RBC) [Mass/Vol] 34.2 g/dL 32.5-35.6 [facility] MCV [Entitic volume] by Auto mated countOrdered By: Kat Hua on 01-11-2024 MCV (RBC) [Entitic vol] 92.0 fL Normal 83.5-101 [facility] Comment on above: Performed By: #### C BC, CMP, CK, HS TROP ####[facility] [id number] Monocyte distribution width [Entitic volume] in Blood by AutomatedOrdered By: Kat Hua on 01-11-2024 Monocyte distribution width Auto (Bld) [Entitic vol] 20.54 % High 0.00-20.00 [facility] Comment on above: For adults in ED, MD W > 20.0 may be associated with a higher risk of sepsis during the first 12 hrs of hospital admission Neutrophils [#/volume] in Bl ood by Automated countOrdered By: Kat Hua on 01-11-2024 Neutrophils (Bld) [#/Vol] 4.4 10*3/uL Normal 1.8-7.7 [facility] Comment on above: Performed By: #### C BC, CMP, CK, HS TROP ####[facility] [id number] No Panel InformationOrdered By: Kat Hua on 01-11-2024 Estimated GFR (CKD-EPI) > 60.0 mL/Min [facility] Creatinine Clearance (Chem 70.52 [facility] Nucleated erythrocytes [Pres ence] in Blood by Automated countOrdered By: Kat Hua on 01-11-2024 Nucleated RBC Auto Ql (Bld) 0.0 /100{WBC} 0-0.5 [facility] Platelet mean volume [Entiti c volume] in Blood by Automated countOrdered By: Kat Hua on 01-11-2024 Platelet mean volume (Bld) [Entitic vol] 7.4 fL Normal 6.6-10.1 [facility] Comment on above: Performed By: #### C BC, CMP, CK, HS TROP ####[facility] [id number] Platelets [#/volume] in Bloo d by Automated countOrdered By: Kat Hua on 01-11-2024 Platelets (Bld) [#/Vol] 256 10*3/uL Normal 150-450 [facility] Comment on above: Performed By: #### C BC, CMP, CK, HS TROP ####[address] Potassium [Moles/volume] in Serum or PlasmaOrdered By: Kat Hua on 01-11-2024 Potassium [Moles/Vol] 4.2 mmol/L Normal 3.5-5.1 [facility] Comment on above: Performed By: #### C BC, CMP, CK, HS TROP ####[address] Protein [Mass/volume] in Ser um or PlasmaOrdered By: Kat Hua on 01-11-2024 Protein [Mass/Vol] 6.3 g/dL Low 6.4-8.9 [facility] Comment on above: Performed By: #### C BC, CMP, CK, HS TROP ####[address] Serum globulin measurement b y calculation (mass/volume)Ordered By: Kat Hua on 01-11-2024 Globulin (S) [Mass/Vol] 2.4 g/dL Normal [facility] Comment on above: Performed By: #### C BC, CMP, CK, HS TROP ####[address] Serum or plasma albumin/glob ulin mass ratioOrdered By: Kat Hua on 01-11-2024 Albumin/Globulin [Mass ratio] 1.6 {ratio} Normal [facility] Comment on above: Performed By: #### C BC, CMP, CK, HS TROP ####[address] Serum or plasma anion gap de terminationOrdered By: Kat Hua on 01-11-2024 Anion gap [Moles/Vol] 7.8 mmol/L Normal 6.0-15.0 [facility] Comment on above: Performed By: #### C BC, CMP, CK, HS TROP ####[address] Sodium [Moles/volume] in Ser um or PlasmaOrdered By: Kat Hua on 01-11-2024 Sodium [Moles/Vol] 139 mmol/L Normal 136-145 [facility] Comment on above: Performed By: #### C BC, CMP, CK, HS TROP ####[place] [id number] [place] [id number] [facility] [[email or web address]] Troponin I High Sensitivityo n 01-11-2024 Troponin I High Sensitivity 5.9 pg/mL Normal 0.0-20.0 [facility] Comment on above: Result Comment: PERF ORMED BY: [facility] [address] [place] [address] PATHOLOGIST BIAZZI NITRATOR OPERATOR OLENA ZULETA M.D. Performed By: #### C BC, CMP, CK, HS TROP ####[place] [id number] [place] [phone] [facility] [[email or web address]] Troponin I.cardiac [Mass/vol ume] in Serum or Plasma by Detection limit <= 0.01 ng/Ordered By: Kat Hua on 01-11-2024 Troponin I.cardiac DL <= 0.01 ng/mL [Mass/Vol] 5.9 pg/mL 0.0-20.0 [facility] Urea nitrogen [Mass/volume] in Serum or PlasmaOrdered By: Kat Hua on 01-11-2024 Urea nitrogen [Mass/Vol] 22 mg/dL Normal 7-25 [facility] Comment on above: Performed By: #### C BC, CMP, CK, HS TROP ####[place] [phone] [facility] [[email or web address]] XR chest 1V portableon 01-10 XR chest 1V portable [facility] [address] [place] [address] [place] [id number] XRay Report Signed Patient: Heather Mcmahon MR#: [id number] : 1945 Acct:[id number] Age/Sex: 78 / M ADM Date: 01/11/24 Loc: ER Room: Type: [facility] ER Attending Dr: Copies to: Kat Hua [...] Milagro Ortiz M.D.01/11/2024 3:17 PM Dictation Location: [place] [address] Transcribed By: MAMTA 01/11/24 1517 Dictated By: Milagro Ortiz MD 01/11/24 1515 Signed By: 01/11/24 151 Normal [facility] ABO/Rh Retypeon 12-29-2023 ABO/RH Recheck Result Positive Normal [facility] Comment on above: Result Comment: PERF ORMED BY: [facility] [address] [place] [address] PATHOLOGIST BIAZZI NITRATOR OPERATOR OLENA ZULETA M.D. Amphetamine Screen Ql (U)Ord ered By: Vamsi Angelo on 12-29-2023 Amphetamines Ql (U) Negative Negative [facility] Amylase [Enzymatic activity/ volume] in Serum or PlasmaOrdered By: Vamsi Angelo on 12-29-2023 Amylase [Catalytic activity/Vol] 31 U/L Normal 29-103 [facility] Comment on above: Performed By: #### A MY, LIPASE, ETOH, CK, CBC, LYTES, GLU, BUN, CREAT, AST ####[place] [id number] Aspartate aminotransferase [ Enzymatic activity/volume] in Serum or PlasmaOrdered By: Vamsi Angelo on 12-29-2023 AST [Catalytic activity/Vol] 28 U/L Normal 13-39 [facility] Comment on above: Performed By: #### A MY, LIPASE, ETOH, CK, CBC, LYTES, GLU, BUN, CREAT, AST ####[place] [id number] [place] [phone] [facility] [[email or web address]] Automated basophil %Ordered By: Vamsi Angelo on 12-29-2023 Basophils/100 WBC (Bld) 0.6 % Normal . [facility] Comment on above: Performed By: #### A MY, LIPASE, ETOH, CK, CBC, LYTES, GLU, BUN, CREAT, AST #### [address] Automated basophil countOrde red By: Vamsi Angelo on 12-29-2023 Basophils (Bld) [#/Vol] 0.1 10*3/uL Normal 0.0-0.2 [facility] Comment on above: Result Comment: PERF ORMED BY: [place] [address] PATHOLOGIST BIAZZI NITRATOR OPERATOR OLENA ZULETA M.D. Performed By: #### A MY, LIPASE, ETOH, CK, CBC, LYTES, GLU, BUN, CREAT, AST #### [address] Automated blood monocyte cou ntOrdered By: Vamsi Angelo on 12-29-2023 Monocytes (Bld) [#/Vol] 0.9 10*3/uL High 0.0-0.8 [facility] Comment on above: Performed By: #### A MY, LIPASE, ETOH, CK, CBC, LYTES, GLU, BUN, CREAT, AST #### [address] Automated eosinophil %Ordere d By: Vamsi Angelo on 12-29-2023 Eosinophils/100 WBC (Bld) 1.5 % Normal . [facility] Comment on above: Performed By: #### A MY, LIPASE, ETOH, CK, CBC, LYTES, GLU, BUN, CREAT, AST #### [address] Automated eosinophil countOr dered By: Vamsi Angelo on 12-29-2023 Eosinophils (Bld) [#/Vol] 0.1 10*3/uL Normal 0.0-0.45 [facility] Comment on above: Performed By: #### A MY, LIPASE, ETOH, CK, CBC, LYTES, GLU, BUN, CREAT, AST #### [address] Automated monocyte %Ordered By: Vamsi Angelo on 12-29-2023 Monocytes/100 WBC (Bld) 11.4 % Normal . [facility] Comment on above: Performed By: #### A MY, LIPASE, ETOH, CK, CBC, LYTES, GLU, BUN, CREAT, AST #### [facility] [address] Automated neutrophil %Ordere d By: Vamsi Angelo on 12-29-2023 Neutrophils/100 WBC (Bld) 71.2 % Normal . [facility] Comment on above: Performed By: #### A MY, LIPASE, ETOH, CK, CBC, LYTES, GLU, BUN, CREAT, AST #### [facility] [address] Barbiturates [Presence] in U rine by Screen methodOrdered By: Vamsi Angelo on 12-29-2023 Barbiturates Screen Ql (U) Negative Negative [facility] Benzodiazepines Screen Ql (U )Ordered By: Vamsi Angelo on 12-29-2023 Benzodiazepines Ql (U) Negative Negative [facility] Benzoylecgonine [Presence] i n Urine by Screen methodOrdered By: Vamsi Angelo on 12-29-2023 Benzoylecgonine Screen Ql (U) Negative Negative [facility] CT abdomen pelvis w conon CT abdomen pelvis w con [facility] [place] [address] [place] [address] CT Scan Report Signed Patient: Heather Mcmahon MR#: [id number] : 1945 Acct:[id number] Age/Sex: 78 / M ADM Date: 12/29/23 Loc: ER Room: Type: [facility] ER Attending Dr: Copies to: Vamsi Angelo DO Ordering Provider: Vamsi Angelo DO Date of Service: 12/29/23 CT/CT abdomen pelvis w con: traumatic injury ([id number]) CT/CT chest w con: traumatic injury CT [...] Pelvis:[Urinary bladder and prostate gland appear unremarkable.] Peritoneum/Retroperi toneum:No free air, free fluid or lymphadenopathy.[ Abd wall/Bones:No contusion is seen. Osseous structures demonstrate degenerative change. No acute bony process.[ CT/CT chest w con IMPRESSION: No acute process is seen within the chest, abdomen or pelvis. Impression dictated by: Ehsan Adorno Jr., D.O.12/29/2023 11:32 AM Dictation Location: [place] [address] Transcribed By: [facility] 12/29/23 1132 Dictated By: Ehsan Adorno Jr, DO 12/29/23 1127 Signed By: 12/29/23 1132 Normal [facility] CT [facility] 0 12-29-2023 CT cervical spine wo [facility] [place] [address] [place] [address] CT Scan Report Signed Patient: Heather Mcmahon MR#: [id number] : 1945 Acct:[id number] Age/Sex: 78 / M ADM Date: 12/29/23 Loc: ER Room: Type: PRE ER Attending Dr: Copies to: Vamsi Angelo DO Ordering Provider: Vamsi Angelo DO Date of Service: 12/29/23 CT/CT cervical spine wo con: traumatic injury ([id number]) CT/CT head/brain wo con: traumatic injury CT [...] FRACTURE Impression dictated by: Ehsan Adorno Jr., D.O.12/29/2023 11:23 AM Dictation Location: [place] [address] Transcribed By: [facility] 12/29/23 1123 Dictated By: Ehsan Adorno Jr, DO 12/29/23 1119 Signed By: 12/29/23 1123 Normal [facility] Cannabinoids [Presence] in U rine by Screen methodOrdered By: Vamsi Angelo on 12-29-2023 Cannabinoids Screen Ql (U) Negative Negative [facility] Comment on above: These are unconfirme d results and should not be used for legal purposes. Drug Cut-Off Concentration: AMPH 1000 ng/mL ANGELICA 200 ng/mL TRACEE 200 ng/mL COCM 300 ng/mL OP 300 ng/mL PCP 25 ng/mL THC 20 ng/mL Capillary blood glucose daniel urement by glucometer (mass/volume)Ordered By: Vamsi Angelo on 12-29-2023 Glucose [Mass/Vol] 97 mg/dL Normal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 AMIC #### [facility] [address] [place] [address] Dr. Navjot Fitzgerald Urobilinogen Qn (U) 0.2 {Marita'U}/dL Normal 0.2 - 1. 0 [facility] Comment on above: Performed By: #### U AMIC #### [facility] [address] [place] [address] Dr. Navjot Fitzgerald WBC NONE SEEN Normal NONE SEEN [facility] Comment on above: Performed By: #### U AMIC #### [facility] [address] [place] [address] Dr. Navjot Fitzgerald QUANTIFERON TB GOLD PLUSon 0 - QuantiFERON Criteria Comment Normal [facility] Comment on above: Result Comment: Braden tiFERON-TB [...] test. Performed By: #### Q NTTB #### [facility] [address] [place] [address] Dr. Navjot Fitzgerald QuantiFERON Incubation Incubation performed. Normal [facility] Comment on above: Performed By: #### Q NTTB #### [facility] [address] [place] [address] Dr. Navjot Fitzgerald QuantiFERON Mitogen Value >10.00 Normal [facility] Comment on above: Performed By: #### Q NTTB #### [facility] [address] [place] [address] Dr. Navjot Fitzgerald QuantiFERON Nil Value 0.02 IU/mL Normal [facility] Comment on above: Performed By: #### Q NTTB #### [facility] [address] [place] [address] Dr. Navjot Fitzgerald QuantiFERON TB1 Ag Value 0.02 IU/mL Normal [facility] Comment on above: Performed By: #### Q NTTB #### [facility] [address] [place] [address] Dr. Navjot Fitzgerald QuantiFERON TB2 Ag Value 0.02 IU/mL Normal [facility] Comment on above: Performed By: #### Q NTTB #### [facility] [address] [place] [address] Dr. Navjot Fitzgerald QuantiFERON-TB Gold Plus Negative Normal Negative [facility] Comment on above: Result Comment: No r esponse to M tuberculosis antigens detected. Infection with M tuberculosis is unlikely, but high risk individuals should be considered for additional testing (ATS/IDSA/CDC Clinical Practice Guidelines, 2017). The reference range is an Antigen minus Nil result of <0.35 IU/mL. Chemiluminescence immunoassay methodology Performed By: #### Q NTTB #### [facility] [address] [place] [address] Dr. Navjot Fitzgerald US MINDY DOP LEG [...] by: MIKAELA BARRERA Date: 2022-04-14 16:06 Normal [facility] LIVER PROFILEon 10-14-2021 Albumin [Mass/Vol] 3.6 g/dL Normal 3.4-5.0 [facility] Comment on above: Performed By: #### L IVER #### [facility] [address] [place] [address] Dr. Navjot Fitzgerald Albumin/Globulin [Mass ratio] 1.0 {ratio} Normal [facility] Comment on above: Performed By: #### L IVER #### [facility] [address] [address] [address] Navjot Fitzgerald ALP [Catalytic activity/Vol] 107 U/L Normal 46-116 [facility] Comment on above: Performed By: #### L IVER #### [facility] [address] [place] [address] Dr. Navjot Fitzgerald ALT [Catalytic activity/Vol] 50 U/L Normal 16-63 [facility] Comment on above: Performed By: #### L IVER #### [facility] [address] [address] [address] Navjot Fitzgerald AST [Catalytic activity/Vol] 25 U/L Normal 15-37 [facility] Comment on above: Performed By: #### L IVER #### [facility] [address] [place] [address] Dr. Navjot Fitzgerald BILI, CONJUGATED 0.2 mg/dL Normal 0.0-0.3 [facility] Comment on above: Performed By: #### L IVER #### [facility] [address] [address] [address] Navjot Fitzgerald Bilirubin [Mass/Vol] 0.6 mg/dL Normal 0.2-1.3 [facility] Comment on above: Performed By: #### L IVER #### [facility] [address] [place] [address] Dr. Navjot Fitzgerald Globulin (S) [Mass/Vol] 3.5 g/dL Normal T [place] Comment on above: Performed By: #### L IVER #### [facility] [address] [place] [address] Dr. Navjot Fitzgerald Protein [Mass/Vol] 7.1 g/dL Normal 6.1-8.2 [facility] Comment on above: Performed By: #### L ROGER #### [facility] [address] [place] [address] Dr. Navjot Fitzgerald QUANTIFERON TB GOLD PLUSon 0 10-03-2021 QuantiFERON Criteria Comment Normal [facility] Comment on above: Result Comment: The QuantiFERON-TB Gold Plus result is determined by subtracting the Nil value from either TB antigen (Ag) tube. The mitogen tube serves as a control for the test. Performed By: #### Q NTTB ####[facility] [address] [place], [place] [address]Dr. Navjot Fitzgerald QuantiFERON Incubation Incubation performed. Normal [facility] Comment on above: Performed By: #### Q NTTB ####[facility] [address] [place], [place] [address]Dr. Navjot Fitzgerald QuantiFERON Mitogen Value >10.00 Normal [facility] Comment on above: Performed By: #### Q NTTB ####[facility] [address] [place], [place] [address]Dr. Navjot Fitzgerald QuantiFERON Nil Value 0.05 IU/mL Normal [facility] Comment on above: Performed By: #### Q NTTB ####[facility] [address] [place], [place] [address]Dr. Navjot Fitzgerald QuantiFERON TB1 Ag Value 0.05 IU/mL Normal [facility] Comment on above: Performed By: #### Q NTTB ####[facility] [address] [place], [place] [address]Dr. Navjot Fitzgerald QuantiFERON TB2 Ag Value 0.06 IU/mL Normal [facility] Comment on above: Performed By: #### Q NTTB ####[facility] [address] [place], [place] [address]Dr. Navjot Fitzgerald QuantiFERON-TB Gold Plus Negative Normal Negative [facility] Comment on above: Result Comment: Chem iluminescence immunoassay methodology Performed By: #### Q NTTB ####[facility] [address] [place], [place] [address]LdDr. Navjot Fitzgerald CBC AUTO DIFFon 09-30-2021 BASO # 0.0 103/ul Normal 0.0-0.1 [facility] Comment on above: Performed By: #### C BC #### [facility] [address] [address] [address] Navjot Fitzgerald Basophils/100 WBC (Bld) 0.5 % Normal 0.2-2.0 [facility] Comment on above: Performed By: #### C BC #### [facility] [address] [address] [address] Navjot Fitzgerald EO # 0.2 103/ul Normal 0.0-0.7 [facility] Comment on above: Performed By: #### C BC #### [facility] [address] [address] [address] Navjot Fitzgerald Eosinophils/100 WBC (Bld) 4.2 % Normal 0.9-7.0 [facility] Comment on above: Performed By: #### C BC #### [facility] [address] [address] [address] Navjot Fitzgerald Erythrocyte distribution width (RBC) [Ratio] 12.3 % Normal 11.0-15.0 [facility] Comment on above: Performed By: #### C BC #### [facility] [address] [address] [address] Navjot Fitzgerald Hematocrit (Bld) [Volume fraction] 45.5 % Normal 42.0-54.0 [facility] Comment on above: Performed By: #### C BC #### [facility] [address] [address] [address] Navjot Fitzgerald Hemoglobin (Bld) [Mass/Vol] 15.8 g/dL Normal 14.0-18.0 [facility] Comment on above: Performed By: #### C BC #### [facility] [address] [address] [address] Navjot Fitzgerald IG # 0.03 10e3/ul Normal 0.00-0.03 [facility] Comment on above: Performed By: #### C BC #### [facility] [address] [place] [address] Dr. Navjot Fitzgerald IG % 0.5 % Normal 0.0-0.5 [facility] Comment on above: Performed By: #### C BC #### [facility] [address] [place] [address] Dr. Navjot Fitzgerald LYMPH # 1.7 103/ul Normal 1.2-3.8 [facility] Comment on above: Performed By: #### C BC #### [facility] [address] [place] [address] Dr. Navjot Fitzgerald Lymphocytes/100 WBC (Bld) 29.6 % Normal 20.5-60.0 [facility] Comment on above: Performed By: #### C BC #### [facility] [address] [place] [address] Dr. Navjot Fitzgerald MANUAL DIFF REQ NO Normal [facility] Comment on above: Performed By: #### C BC #### [facility] [address] [place] [address] Dr. Navjot Fitzgerald MCH (RBC) [Entitic mass] 31.3 pg Normal 25.9-34.0 [facility] Comment on above: Performed By: #### C BC #### [facility] [address] [place] [address] Dr. Navjot Fitzgerald MCHC (RBC) [Mass/Vol] 34.7 g/dL Normal 29.9-35.2 [facility] Comment on above: Performed By: #### C BC #### [facility] [address] [place] [address] Dr. Navjot Fitzgerald MCV (RBC) [Entitic vol] 90.3 fL Normal 80.0-94.0 [facility] Comment on above: Performed By: #### C BC #### [facility] [address] [place] [address] Dr. Navjot Fitzgerald MONO # 0.6 103/ul Normal 0.3-0.8 [facility] Comment on above: Performed By: #### C BC #### [facility] [address] [address] [address] Navjot Fitzgerald Monocytes/100 WBC (Bld) 10.6 % Normal 1.7-12.0 [facility] Comment on above: Performed By: #### C BC #### [facility] [address] [address] [address] Navjot Fitzgerald NEUT # 3.2 103/ul Normal 1.4-6.5 [facility] Comment on above: Performed By: #### C BC #### [facility] [address] [address] [address] Navjot Fitzgerald Neutrophils/100 WBC (Bld) 54.6 % Normal 43.0-75.0 [facility] Comment on above: Performed By: #### C BC #### [facility] [address] [place] [address] Dr. Navjot Fitzgerald Platelet mean volume (Bld) [Entitic vol] 9.2 fL Critically low 9.5-13.5 [facility] Comment on above: Performed By: #### C BC #### [facility] [address] [place] [address] Dr. Navjot Fitzgerald PLT 237 103/ul Normal 150-450 [facility] Comment on above: Performed By: #### C BC #### [facility] [address] [place] [address] Dr. Navjot Fitzgerald RBC 5.04 106/ul Normal 4.70-6.10 [facility] Comment on above: Performed By: #### C BC #### [facility] [address] [place] [address] Dr. Navjot Fitzgerald WBC 5.8 103/ul Normal 4.0-11.0 [facility] Comment on above: Performed By: #### C BC #### [facility] [address] [place] [address] Dr. Navjot Fitzgerald LIPID PROFILEon 09-30-2021 CHOL-HDL RATIO NORM SEE BELOW Normal [facility] Comment on above: Result Comment: 3.3 - 4.4 LOW RISK 4.4 - 7.1 AVERAGE RISK 7.1 - 11.0 MODERATE RISK >11.0 HIGH RISK Performed By: #### C MP, LIPID ####[facility] [address] [address]Dr[address] Navjot Fitzgerald Cholesterol [Mass/Vol] 128 mg/dL Normal <=200 Th [facility] Comment on above: Performed By: #### C MP, LIPID ####[facility] [address] [address]Dr. Navjot Fitzgerald Cholesterol in HDL [Mass/Vol] 42 mg/dL Normal 40-60 [facility] Comment on above: Performed By: #### C MP, LIPID ####[facility] [address] [address]Dr. Navjot Fitzgerald Cholesterol in LDL [Mass/Vol] 72.6 mg/dL Normal [facility] Comment on above: Performed By: #### C MP, LIPID ####[facility] [address] [address]Dr. Kristaabhinav Amilcar Cholesterol.total/Choles terol in HDL [Mass ratio] 3.0 {ratio} Normal [facility] Comment on above: Performed By: #### C MP, LIPID ####[facility] [address] [place], [place] [id number]. Navjot Fitzgerald HDL NORMAL > or = 60 mg/dl - LOW CARDIOVASCULAR RISK <40 mg/dl - HIGH CARDIOVASCULAR RISK Normal [facility] Comment on above: Performed By: #### C MP, LIPID ####[facility] [address] [place], [place] [id number]. Navjot Fitzgerald LDL CALC NORMAL SEE BELOW Normal [facility] Comment on above: Result Comment: <100 mg/dl OPTIMAL 100 - 129 mg/dl NEAR OR ABOVE OPTIMAL 130 - 159 mg/dl BORDERLINE HIGH 160 - 189 mg/dl HIGH >190 mg/dl VERY HIGH Performed By: #### C MP, LIPID ####[facility] [address] [address]Dr. Navjot Fitzgerald Triglyceride [Mass/Vol] 67 mg/dL Normal <=150 T [place] Comment on above: Performed By: #### C MP, LIPID ####[facility] [address] [address]Dr. Navjot Fitzgerald VLDL CALC 13.4 mg/dL Normal [facility] [facility] Comment on above: Performed By: #### C MP, LIPID ####[facility] [address] [place] [address]Dr. Navjot Fitzgerald PROF 14(COMP METB)on 022 Albumin [Mass/Vol] 3.4 g/dL Normal 3.4-5.0 [facility] Comment on above: Performed By: #### C MP, LIPID ####[facility] [address] [place] [address]Dr. Navjot Fitzgerald Albumin/Globulin [Mass ratio] 0.9 {ratio} Normal [facility] Comment on above: Performed By: #### C MP, LIPID ####[facility] [address] [place] [address]Dr. Navjot Fitzgerald ALP [Catalytic activity/Vol] 106 U/L Normal 46-116 [facility] Comment on above: Performed By: #### C MP, LIPID ####[facility] [address] [place] [address]Dr. Navjot Fitzgerald ALT [Catalytic activity/Vol] 74 U/L Critically high 16-63 [facility] Comment on above: Result Comment: SPEC IMEN SLIGHTLY HEMOLIZED--NOTIFY LAB IF REDRAW REQUESTED Performed By: #### C MP, LIPID ####[facility] [address] [place] [address]Dr. Navjot Fitzgerald Anion gap [Moles/Vol] 12.5 mmol/L Normal [facility] Comment on above: Performed By: #### C MP, LIPID ####[facility] [address]ikco[address] [place] [address]Dr. Navjot Fitzgerald AST [Catalytic activity/Vol] 65 U/L Critically high 15-37 [facility] Comment on above: Result Comment: SPEC IMEN SLIGHTLY HEMOLIZED--NOTIFY LAB IF REDRAW REQUESTED Performed By: #### C MP, LIPID ####[facility] [address] [place] [address]Dr. Navjot Fitzgerald Bilirubin [Mass/Vol] 0.8 mg/dL Normal 0.2-1.3 [facility] Comment on above: Performed By: #### C MP, LIPID ####[facility] [address] [place] [address]Dr. Navjot Fitzgerald Calcium [Mass/Vol] 8.6 mg/dL Normal 8.5-10.1 [facility] Comment on above: Performed By: #### C MP, LIPID ####[facility] [address]heyb[address] [place] [address]Dr. Navjot Fitzgerald Chloride [Moles/Vol] 103 mmol/L Normal 98-107 [facility] Comment on above: Performed By: #### C MP, LIPID ####[facility] [address] [place] [address]Dr. Navjot Fitzgerald CO2 [Moles/Vol] 27.7 mmol/L Normal 22.0-30.0 [facility] Comment on above: Performed By: #### C MP, LIPID ####[facility] [address] [place] [address]Dr. Navjot Fitzgerald Creatinine [Mass/Vol] 0.74 mg/dL Normal 0.66-1.25 [facility] Comment on above: Performed By: #### C MP, LIPID ####[facility] [address] [place] [address]Dr. Navjot Fitzgerald EGFR-AF SERBIAN >60 Normal >=60 [facility] Comment on above: Performed By: #### C MP, LIPID ####[facility] [address] [place] [address]Dr. Navjot Fitzgerald EGFR-NON AF SERBIAN >60 Normal >=60 [facility] Comment on above: Performed By: #### C MP, LIPID ####[facility] [address]jxv[address] [place] [address]Dr. Navjot Fitzgerald Globulin (S) [Mass/Vol] 3.8 g/dL Normal [facility] [place] Comment on above: Performed By: #### C MP, LIPID ####[facility] [address] [place] [address]Dr. Navjot Fitzgerald Glucose [Mass/Vol] 98 mg/dL Normal 74-106 [facility] [place] Comment on above: Performed By: #### C MP, LIPID ####[facility] [address] [place] [address]Dr. Navjot Fitzgerald Potassium [Moles/Vol] 4.2 mmol/L Normal 3.4-5.0 [facility] Comment on above: Result Comment: SPEC IMEN SLIGHTLY HEMOLIZED--NOTIFY LAB IF REDRAW REQUESTED Performed By: #### C MP, LIPID ####[facility] [address] [place] [address]Dr. Navjot Fitzgerald Protein [Mass/Vol] 7.2 g/dL Normal 6.1-8.2 [facility] [place] Comment on above: Performed By: #### C MP, LIPID ####[facility] [address] [place] [address]Dr. Navjot Fitzgerald Sodium [Moles/Vol] 139 mmol/L Normal 137-145 [facility] [place] Comment on above: Performed By: #### C MP, LIPID ####[facility] [address] [place] [address]Dr. Navjot Fitzgerald Urea nitrogen [Mass/Vol] 20.0 mg/dL Critically high 7.0-18 .0 [facility] Comment on above: Performed By: #### C MP, LIPID ####[facility] [address] [place] [address]Dr. Navjot Fitzgerald Urea nitrogen/Creatinine [Mass ratio] 27.0 mg/mg Normal [facility] Comment on above: Performed By: #### C MP, LIPID ####[facility] Eg[address] [place] [address]Dr. Navjot Fitzgerald UA RANDOM W/MICROSCOPICon BACTERIA TRACE Abnormal NONE SEEN The [facility] Comment on above: Performed By: #### U AMIC #### [facility] [address] [place], [place] [address] Dr. Navjot Fitzgerald Bilirubin Ql (U) Negative Normal NEGATIVE [facility] Comment on above: Performed By: #### U AMIC #### [facility] [address] [place] [address] [address] Navjot Fitzgerald CAST NONE SEEN Normal NONE SEEN [facility] Comment on above: Performed By: #### U AMIC #### [facility] [address] [place] [address] [address] Navjot Fitzgerald Clarity (U) SL CLOUDY Abnormal CLEAR [facility] Comment on above: Performed By: #### U AMIC #### [facility] [address] [place] [address] [address] Navjot Fitzgerald Crystals LM Nom (Urine sed) NONE SEEN Normal NONE SEEN [facility] Comment on above: Performed By: #### U AMIC #### [facility] [address] [place] [address] [address] Navjot Fitzgerald Epithelial cells LM Ql (Urine sed) RARE Normal NONE SEEN /RARE [facility] Comment on above: Performed By: #### U AMIC #### [facility] [address] [place] [address] [address] Navjot Fitzgerald Glucose Ql (U) Negative Normal NEGATIVE [facility] Comment on above: Performed By: #### U AMIC #### [facility] [address] [place] [address] [address] Navjot Fitzgerald Hemoglobin Ql (U) TRACE-LYSED Abnormal NEGATIVE [facility] [place] Comment on above: Performed By: #### U AMIC #### [facility] [address] [place] [address] [address] Navjot Fitzgerald Ketones Ql (U) Negative Normal NEGATIVE [facility] Comment on above: Performed By: #### U AMIC #### [facility] [address] [place] [address] [address] Navjot Fitzgerald LEUKOCYTES Negative Normal NEGATIVE [facility] Comment on above: Performed By: #### U AMIC #### [facility] [address] [place] [address] [address] Navjot Fitzgerald MUCOUS TRACE Abnormal NONE SEEN [facility] Comment on above: Performed By: #### U AMIC #### [facility] [address] [place] [address] [address] Navjot Fitzgerald Nitrite Ql (U) Negative Normal NEGATIVE [facility] Comment on above: Performed By: #### U AMIC #### [facility] [address] [place] [address] [address] Navjot Fitzgerald pH (U) 6.0 [pH] Normal 5-9 [facility] Comment on above: Performed By: #### U AMIC #### [facility] [address] [place] [address] [address] Navjot Fitzgerald RBC 0-2 Normal 0-2 [facility] Comment on above: Performed By: #### U AMIC #### [facility] [address] [place] [address] [address] Navjot Fitzgerald SPEC GRAVITY 1.015 Normal 1.005-<=1.02 5 [facility] Comment on above: Performed By: #### U AMIC #### [facility] [address] [place] [address] Dr. Navjot Fitzgerald UA PROTEIN Negative Normal NEGATIVE/ TRACE [facility] Comment on above: Performed By: #### U AMIC #### [facility] [address] [place] [address] [address] Navjot Fitzgerald Urobilinogen Qn (U) 0.2 {Marita'U}/dL Normal 0.2 - 1. 0 [facility] Comment on above: Performed By: #### U AMIC #### [facility] [address] [place] [address] Dr. Navjot Fitzgerald WBC NONE SEEN Normal NONE SEEN [facility] Comment on above: Performed By: #### U AMIC #### [facility] [address] [place] [address] Dr. Navjot Fitzgerald Vital Signs Date Time Vital Sign Value Performing Clinician Alfredo mcfarland 01-11-2024 16:00-0400 Body temperature 98 [degF] [facility] 01-11-2024 15:30-0400 Diastolic blood pressure 67 mm[Hg] [facility] 01-11-2024 15:30-0400 Heart rate 60 /min [facility] 01-11-2024 15:30-0400 Respiratory rate 16 /min [facility] 01-11-2024 15:30-0400 SaO2% (BldA) [Mass fraction] 96 % [facility] 01-11-2024 15:30-0400 Systolic blood pressure 139 mm[Hg] [facility] 01-11-2024 13:50-0400 Body height 172.72 cm [facility] 01-11-2024 13:50-0400 Body weight 101.7 kg [facility] 12-29-2023 12:18-0400 Diastolic blood pressure 68 mm[Hg] [facility] 12-29-2023 12:18-0400 Heart rate 77 /min [facility] 12-29-2023 12:18-0400 Respiratory rate 18 /min [facility] 12-29-2023 12:18-0400 SaO2% (BldA) [Mass fraction] 98 % [facility] 12-29-2023 12:18-0400 Systolic blood pressure 142 mm[Hg] [facility] 12-29-2023 10:35-0400 Body height 172.72 cm [facility] 12-29-2023 10:35-0400 Body weight 90.71 kg [facility] 12-29-2023 10:27-0400 Body temperature 97.9 [degF] [facility] Encounters Encounter Date Encounter Type Care Provider Facility Start: 02-09-2024 End: 02-09-2024 ambulatory KISHA [facility] Start: 02-06-2024 End: 02-06-2024 ambulatory GÓMEZ COELLO Not Available Start: 02-05-2024 End: 02-05-2024 ambulatory Vamsi BENITO Facility:[facility] Start: 02-05-2024 End: 02-05-2024 Patient encounter procedure Vamsi BENITO [facility] Start: 01-17-2024 End: 01-17-2024 ambulatory CHARLEEN HATFIELD Not Available Start: 01-11-2024 End: 01-11-2024 Emergency department patient visit [facility] Work Phone: Start: 01-11-2024 End: 01-11-2024 ambulatory CHARLEEN AICHHOLZ Not Available Start: 12-29-2023 End: 12-29-2023 Emergency department patient visit [facility] Work Phone: Start: 11-28-2023 End: 11-28-2023 ambulatory GÓMEZ A BROWN Not Available Start: 11-28-2023 End: 11-28-2023 ambulatory CHARLEEN AICHHOLZ Not Available Start: 09-19-2023 End: 09-19-2023 ambulatory GÓMEZ A BROWN Not Available Start: 09-04-2023 End: 09-04-2023 ambulatory CHARLEEN AICHHOLZ Not Available Start: 08-28-2023 End: 08-28-2023 ambulatory CHARLEEN AICHHOLZ Not Available Start: 08-10-2023 Refill Charleen Aichholz MULTILITH OPERATOR Work Phone: [facility] Comment on above: Primary hypertension (CMS/HCC) (Primary Dx) Start: 07-25-2023 End: 07-25-2023 ambulatory GÓMEZ A BROWN Not Available Start: 07-11-2023 End: 07-11-2023 ambulatory GÓMEZ A BROWN Not Available Start: 02-10-2023 ambulatory Vamsi BENITO Facili ty:[facility] Start: 09-21-2022 End: 09-22-2022 ambulatory SENIOR IT SECURITY ANALYST CHARLEEN AICHHOLZ Facility:[facility] Start: 07-28-2022 End: 07-29-2022 ambulatory SENIOR IT SECURITY ANALYST CHARLEEN AICHHOLZ Facility:[facility] Start: 04-14-2022 End: 04-15-2022 ambulatory SENIOR IT SECURITY ANALYST CHARLEEN AICHHOLZ Facility:[facility] Start: 02-04-2022 End: 02-04-2022 Patient encounter procedure Vamsi BENITO [facility] Start: 02-01-2022 End: 08-10-[address] VAMSI BENITO . Facility:[facility] Start: 10-14-2021 End: 10-15-2021 ambulatory TAE KENTJOANNEHank Facility:[facility] Start: 10-01-2021 End: 10-02-2021 ambulatory BETHANY GONZALEZ Facility:[facility] Start: 09-30-2021 End: 10-01-2021 ambulatory TAE HATFIELD Facility:[facility] Procedures Date Procedure Procedure Detail Performing Clinician Start: 01-11-2024 Plain chest X-ray Start: 12-29-2023 Antibody screen Comment on above: Result Comment: PERF ORMED BY: [facility] [address] [place] [address] PATHOLOGIST BIAZZI NITRATOR OPERATOR OLENA ZULETA M.D. Start: 12-29-2023 Plain X-ray of left shoulder Start: 12-29-2023 Plain X-ray of right hand Start: 12-29-2023 Computed tomography of abdomen and pelvis with contrast Start: 12-29-2023 CT cervical spine wi thout contrast Start: 12-29-2023 CT of head without contrast Start: 12-29-2023 CT of thorax with contrast Start: 02-01-2022 PSA screening TAE HATFIELD Comment on above: Performed By: #### P SAD #### [facility] [address] [place] [address] Dr. Navjot Fitzgerald Start: 07-18-2013 Optical urethrotomy Maggi BENITO Start: 06-20-2013 Cystoscopy Vamsi HORTON Start: 04-13-2010 Transrectal biopsy o f prostate using ultrasound guidance Vamsi BENITO Start: 07-28-2009 Transrectal biopsy o f prostate using ultrasound guidance Vamsi BENITO Start: 06-10-2007 Transurethral prostatectomy Vamsi BENITO Start: 03-14-2006 Laser ablation of prostate Vamsi BENITO Start: 02-24-2006 Cystoscopy Vamsi HORTON Start: 03-24-2006 Transrectal biopsy o f prostate using ultrasound guidance Vamsi BENITO Prosthetic arthropla sty of shoulder Vamsi BENITO Plan of Treatment Date Care Activity Detail Author Start: 02-21-2024 Screening for malignant neoplasm of colon [facility] Start: 12-29-2023 [facility] Start: 09-19-2023 End: 09-19-2023 Patient encounter procedure 09/19/2023 4:00 PM EDT Procedure Visit [facility] [address] [place] [address] Gómez Coello, DPM [address] [address] [facility] Start: 08-28-2023 End: 08-28-2023 Patient encounter procedure 08/28/2023 10:00 AM EST Office Visit [facility] [address] [place] [id number] Charleen Hatfield, MARYAM [address] [place] [id number] [facility] Start: 02-24-2023 Influenza vaccination Influ[facility] Vacc[facility] Start: 08-11-2017 Pneumococcal Vaccine: 65+ Years (2 of 2 - PPSV23 or PCV20) Pneumococcal Vaccine: 65+ Years (2 of 2 - PPSV23 or PCV20) [facility] Start: 1945 Screening for malignant neoplasm of colon [facility] Patient Education [facility] Work Phone: Patient referral [facility] Work Phone: Immunizations Immunization Date Immunization Notes Care Provider Fa cility 08-24-2020 SARS-CoV-2 (COVID-19 ) Ad26 vaccine, recombinant Vamsi BENITO [facility] 04-25-2018 influenza virus vaccine, unspecified formulation Charleen Hatfield MULTILITH OPERATOR Work Phone: [facility] Payers Date Payer Category Payer Self-pay 2023 Unknown [id number] 2016 Unknown BCBS BCBS [id number] [id number] 2016-Present [phone] [address] [place] [address] [id number] 2012 Medicare MEDICARE MEDICAR E RAILROAD [id number] 2012-Present [employer] MEDICARE [address] [address] [place] [address] Medicare [id number] 1959 Medicare [id number] 1959 Unknown [id number] 1947 Unknown [id number] 2.16.840.1.344444.3.579.2.593 1947 Unknown [id number] .840.1.778025.3.579.2.593 1947 Unknown [id number] .840.1.951746.3.579.2.593 1947 Unknown [id number] .16.840.1.060379.3.579.2.593 1947 Unknown [id number] 2.16.840.1.777265.3.579.2.593 1947 Unknown [id number] .16840.1.390667.3.579.2.593 1947 Unknown [id number] .16840.1.911860.3.579.2.593 1947 Unknown [id number] 2.16.840.1.143389.3.579.2.727 1947 Unknown [id number] 2.16.840.1.495298.3.579.2.727 1947 Unknown [id number] 2.16.840.1.418563.3.579.2.1259 1947 Unknown [id number] 2.16.840.1.684022.3.579.2.1259 1947 Unknown [id number] 2.16.840.1.340549.3.579.2.1259 1947 Unknown [id number] 2.16.840.1.616976.3.579.2.1259 1947 Unknown [id number] 2.16.840.1.338447.3.579.2.1259 1947 Unknown [id number] 2.16840.1.847340.3.579.2.1259 1947 Unknown [id number] 2.16.840.1.162930.3.579.2.1259 1947 Unknown [id number] 2.16.840.1.420868.3.579.2.1259 1947 Unknown [id number] 2.16.840.1.459989.3.579.2.1259 1947 Unknown [id number] 2.16840.1.381873.3.579.2.1259 Unknown [id number] Unknown [id number] 2.16840.1.894834.3.579.2.531 Unknown [id number] 2.16840.1.469821.3.579.2.531 Social History Date Type Detail Facility Start: 02-04-2022 End: 01-11-2024 Tobacco smoking status Never smoked tobacco (finding) [facility] Start: 07-25-2023 Sex Assigned At Male [facility] Start: 07-11-2023 Tobacco use and exposure Smokeless tobacco non-user [facility] Start: 07-25-2023 Alcohol intake Lifetime non-d nilo (finding) [facility] Start: 07-25-2023 History of Social function [facility] Start: 1945 Sex Assigned At Not on file [facility] Start: 1945 Sex Assigned At Male [facility] Functional Status Date Assessment Result Facility 02-04-2022 Functional Status N/A [facility] [place] Progress note 02-09-2024 Note Date & Type Note Facility 02-09-2024 Note Cardiology Clinic No te Chief Complaint: New Patient (Bradycardia/Concerns: No further cardiac symptoms/concerns. ) HPI: Heather Mcmahon is a 78 y.o. male who no past cardiac history that is referred to Cardiology clinic for evaluation of bradycardia noted on EKG. Patient adamantly denies any cardiac complaints or concerns. Patient denies any chest pain or shortness of breath. Patient denies any lower extremity edema, orthopnea, or proximal nocturnal dyspnea. No near-syncope or syncope. No dizziness or lightheadedness. Patient denies any previous history of CVA, PVD, DM, HTN, Depressed LVEF, and CAD. Patient is physically active and denies any activity limitations or symptoms with activity. He wore a 7-day monitor which did not demonstrate any sustained arrhythmias. ROS 10 point ROS is performed and is negative unless otherwise specified in HPI Past Medical History He has no past medical history on file. Surgical History He has no past surgical history on file. Social History He reports that he has never smoked. He has never used smokeless tobacco. He reports that he does not currently use alcohol. He reports that he does not use drugs. Family History No family history on file. Medications Current Outpatient Medications on File Prior to Visit Medication Sig Dispense Refill amLODIPine (Norvasc) 5 mg tablet 5 mg. No current facility-administered medications on file prior to visit. Allergies Patient has no known allergies. Physical Exam VITAL SIGNS: BP 132/68 (BP Location: Right arm, Patient Position: Sitting, BP Cuff Size: Adult) Pulse 54 Ht 1.727 m (5' 8 ) Wt 98.9 kg (218 lb) SpO2 95% BMI 33.15 kg/m??? Constitutional: Well developed, Well nourished, No acute distress, Non-toxic appearance. HENT: Normocephalic, Atraumatic, Bilateral external ears have normal appearance, Nose appears normal, nares are patent. Eyes: PERRLA, EOMI, Conjunctiva normal, No discharge. Neck: Normal range of motion, No tenderness, Supple, No stridor. No cervical lymphadenopathy noted. Cardiovascular: Normal heart rate, Normal rhythm, No murmurs, No rubs, No gallops. Thorax & Lungs: Normal breath sounds, No respiratory distress, No wheezing, No chest tenderness to palpation. Abdomen: Bowel sounds normal, Soft, Nontender, No masses, No pulsatile masses. Skin: Warm, Dry, No erythema, No rash. Back: No tenderness, No CVA tenderness. Extremities: Intact distal pulses, No edema, No tenderness, No cyanosis, No clubbing. Musculoskeletal: Grossly normal strength in extremities Neurologic: Alert & oriented x 3, no gross focal neurological deficits Psychiatric: Affect normal, Judgment normal, Mood normal. EKG results: No results found for this or any previous visit (from the past 4464 hour(s)). Echo results: No echocardiogram results found for the past 12 months Radiology: No image results found. Assessment/Plan: Heather Mcmahon is a 78 y.o. male with Bradycardia Heart block, first degree Patient denies any cardiac complaints or concerns. He is physically active and denies any chest pain. He defers stress testing at this time. Will obtain echocardiogram to assess LVEF, wall motion, valvular function Recommend outpatient sleep study. Patient voices understanding Avoid AV chanelle blockade agents Optimize medical management Aggressive risk factor modification Plan of care discussed with patient. All questions were answered. Patient voices understanding and is agreeable with current plan. Patient was educated on red flag symptoms. Strict return precautions were provided. Patient verbalizes understanding Follow-up in cardiology clinic in 3 months, or sooner as needed Thank you for allowing us to participate in the care of your patient. Please do not hesitate to contact cardiology with any questions or concerns. Kisha Concepcion MD Interventional Cardiology [facility] Discharge instructions 02-04-2022 Note Date & [...] urethra. Follow these instructions at home: Take inzt-xfg-ycrlnok and prescription medicines only as told by [...] 06/12/2006 Document Revised: 05/07/2019 Document Reviewed: 07/17/2017 [employer] Patient Education 2020 [employer]. Follow Up Care 02/03/2021 15:56:19 With:Vamsi BENITO MD, URL Address: [address] [place], [place] [id number]- When:Within 1 Year(s) [facility] Evaluation + Plan note Note Date & Type Note Facility Evaluation + Plan note Future Appointments Appointment Date:02/10/2023 10:15:00 AM Scheduled Provider:Vamsi BENITO MD Location:[facility] Appointment Type:URO Office Visit Diagnostic Tests PendingPSA Total 10/24/22 [facility] Evaluation note Note Date & Type Note Facility Evaluation note Diagnosis Primary hypertension (CMS/HCC)- Primary Unspecified essential hypertension documented in this encounter [facility] Evaluation note Note Date & Type Note Facility Evaluation note Diagnosis Primary hypertension (CMS/HCC)- Primary Unspecified essential hypertension documented in this encounter [facility] Evaluation note Note Date & Type Note Facility Evaluation note No assessment information availa [facility] Work Phone: Hospital course Narrative Note Date & Type Note Facility Hospital course Narrative No data available for this section [facility] Hospital Discharge instructions Note Date & Type Note Facility Hospital Discharge instructions Additional Instructions Follow-up with your private physician in 1 week Return if symptoms are worse Continue current [facility] Work Phone: Hospital Discharge instructions Note Date & Type Note Facility Hospital Discharge instructions No data available for this section [facility] Progress note Note Date & Type Note Facility Progress note No data available for this section [facility] Summary Purpose Family History No Family History Records FoundNo Family History Records Found No data available for this section No Family History Records FoundNo Family History [...] Care Team (unrecognized sect ion and content) 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 Relationship Specialty Start Date End Date José Manuel Reynaga MD [address] [place] [address] PCP - General Family Medicine 07/28/23 Charleen Hatfield NP [address] [place] [id number] Nurse Practitioner Family Medicine 04/26/23 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 Relationship Specialty Start Date End Date José Manuel Reynaga MD [address] [place] [id number] PCP - General Family Medicine 07/28/23 Charleen Hatfield NP [address] [place] [phone] Nurse Practitioner Family Medicine 04/26/23 Team Status: [...] and content) DATE CREATED AUTHOR 09/30/2022 [facility] DATE CREATED AUTHOR AUTHOR'S ORGANIZ ATION 01/26/2024 [facility] DATE CREATED AUTHOR AUTHOR'S ORGANIZ ATION 02/07/2024 [facility] DATE CREATED AUTHOR AUTHOR'S ORGANIZ ATION 02/08/2024 [facility] DATE CREATED AUTHOR AUTHOR'S ORGANIZ ATION 03/20/2024 [facility] Goals (unrecognized section and content) Goals may [...] BE BASED ON THE PRIMARY CLINICAL RECORDS. [employer] provides no warranty or guarantee of the accuracy or completeness of information in this document.
== END 2024-03-27 12:15 | disposition home or self-care (01) ==
LOC: US 12:15
PROVIDERS: PCP Nurse Practitioner; Visit Provider Nurse Practitioner
DX: M79.662 Pain in left lower leg (principal); M79.89 Other specified soft tissue disorders
CPT/HCPCS: 93971

== ENCOUNTER 2024-07-10 14:33 | Outpatient (OUT) | payer MEDICARE, BC, SELFPAY ==
[2024-07-12 07:10] LABS: QuantiFERON-TB Gold Plus Negative (Negative)
== END 2024-07-10 14:34 | disposition home or self-care (01) ==
LOC: LAB 14:35
PROVIDERS: PCP Nurse Practitioner
DX: L40.0 Psoriasis vulgaris (principal); Z79.899 Other long term (current) drug therapy
CPT/HCPCS: 36415; 86480

== ENCOUNTER 2024-09-16 08:44 | Outpatient (OUT) | payer MEDICARE, BC, SELFPAY ==
--- OUTSIDE RECORDS SUMMARY | 2024-09-16 09:09 | XMS_ITS | CCD ---
Author Organization [facility] Informat ion Partnership [facility] Care Team Providers Care Lung Splitter Name Role Phone SEE YOUNG Primary Care Physician [phone] AICHHOLZ, HOME HEALTH MANAGER CHARLEEN Attending Unavailable LISA BETHANY E Primary Care Unavailable AICHHOLZ, HOME HEALTH MANAGER CHARLEEN Admitting Unavailable AICHHOLZ, HOME HEALTH MANAGER CHARLEEN Consulting Unavailable LISA BETHANY E Primary Care Unavailable MISC, DR WOO Admitting Unavailable MISC, DR WOO Consulting Unavailable MISC, DR WOO Attending Unavailable AICHHOLZ, HOME HEALTH MANAGER CHARLEEN Attending Unavailable AICHHOLZ, HOME HEALTH MANAGER CHARLEEN Admitting Unavailable LISA, BETHANY E Primary Care Unavailable AICHHOLZ, HOME HEALTH MANAGER CHARLEEN Consulting Unavailable BENITO ., DR VILLAFUERTE Admitting Unavailable BENITO ., DR VILLAFUERTE Consulting Unavailable BENITO ., DR VILLAFUERTE Attending Unavailable AICHHOLZ, HOME HEALTH MANAGER CHARLEEN Primary Care Unavailable AICHHOLZ, HOME HEALTH MANAGER CHARLEEN Admitting Unavailable AICHHOLZ, HOME HEALTH MANAGER CHARLEEN Primary Care Unavailable AICHHOLZ, HOME HEALTH MANAGER CHARLEEN Consulting Unavailable AICHHOLZ, HOME HEALTH MANAGER CHARLEEN Attending Unavailable Raciel Barrerao Consulting Unavailable AICHHOLZ, HOME HEALTH MANAGER CHARLEEN Primary Care Unavailable MISC, DR WOO Admitting Unavailable MISC, DR WOO Consulting Unavailable MISC, DR WOO Attending Unavailable AICHHOLZ, HOME HEALTH MANAGER CHARLEEN Admitting Unavailable AICHHOLZ, HOME HEALTH MANAGER CHARLEEN Primary Care Unavailable AICHHOLZ, HOME HEALTH MANAGER CHARLEEN Consulting Unavailable AICHHOLZ, HOME HEALTH MANAGER CHARLEEN Attending Unavailable Aichholz MODEL AND MOLD MAKER, Charleen Unavailable José Manuel Reynaga MD Primary Care Provider [phone] NON STAFF Primary Care Provider UnavailDO Vamsi Resendez Emergency Provider MD Kat Hua Emergency Provider [phone] NON STAFF Primary Care Unavailable Kat Hua Admitting Unavailable Kat Hua Attending Unavailable NON STAFF Primary Care Unavailable Vamsi Angelo Admitting Unavailable Vamsi Angelo Attending Unavailable Vamsi BENITO Attending Unavailable Vamsi BENITO Attending Unavailable KISHA CONCEPCION Attending Unavailable Charleen Hatfield NP Unavailable ALYSIA, CHARLEEN Attending Unavailable GÓMEZ COELLO Attending Unavailable GÓMEZ COELLO Attending Unavailable ALYSIA, CHARLEEN Attending Unavailable GÓMEZ COELLO Attending Unavailable ALYSIA, CHARLEEN Attending Unavailable SUMANTHHOLHank, CHARLEEN Attending Unavailable GÓMEZ COELLO Attending Unavailable ALYSIA, CHARLEEN Attending Unavailable ALYSIA, CHARLEEN Attending Unavailable GÓMEZ COELLO Attending Unavailable ALYSIA, CHARLEEN Attending Unavailable GÓMEZ COELLO Attending Unavailable Allergies Allergy Classification Reported Allergen(s) Allergy Type Date of Onset Reaction(s) Facility (1 source) No Known Medication Allergies; Translations: [No Known Medication Allergies] Propensity to adverse reactions (disorder) [facility] Repository Medications Current Medications Medication Drug Class(es) Dates Sig (Normalized) Sig (Original) amLODIPine 5 mg oral tablet (20 sources) Dihydropyridine Calcium Channel Ana Start: 11-28-2023 End: 06-25-2024 take 1 tablet by mouth once daily amLODIPine (Norvasc) 5 MG tablet Indications: Primary hypertension (CMS/HCC) Take 1 tablet (5 mg) by mouth Daily 90 tablet 1 03/27/2024 Active Start: 07-24-2023 End: 11-08-2023 take 1 tablet by mouth in the morning amLODIPine (Norvasc) 5 MG tablet Indications: Primary hypertension (CMS/HCC) Take 1 tablet (5 mg) by mouth in the morning. 90 tablet 1 08/10/2023 11/08/2023 Active aspirin 81 mg chewable tablet (16 sources) Platelet Aggregation Inhibitor, Nonsteroidal Anti-inflammatory Drug Start: 03-27-2024 End: 06-25-2024 ASPIRIN 81 MG chewable tablet Indications: Primary hypertension (CMS/HCC) Chew 1 tablet (81 mg) Daily 90 tablet 3 03/27/2024 06/25/2024 Active Start: 10-09-2019 aspirin Start Date: 10/09/19 Status: Ordered cephalexin 500 mg oral capsule (3 sources) Cephalosporin Antibacterial Start: 03-27-2024 End: 04-06-2024 take 1 capsule by mouth in the morning, then take 1 capsule by mouth in the evening, then take 1 capsule by mouth at bedtime cephalexin (Keflex) 500 MG capsule Indications: Cellulitis of left lower extremity Take 1 capsule (500 mg) by mouth in the morning and 1 capsule (500 mg) in the evening and 1 capsule (500 mg) before bedtime. Do all this for 10 days. 30 capsule 03/27/2024 04/06/2024 Active hydroCHLOROthiazide 12.5 mg / lisinopril 20 mg oral tablet (17 sources) Thiazide Diuretic, Angiotensin Converting Enzyme Inhibitor Start: 01-11-2024 take 1 tablet by mouth once daily Lisinopril-Sagle chlorothiazide Active 1 TAB PO Daily January 11, 2024 12:00am Start: 11-28-2023 End: 06-25-2024 take 1 tablet by mouth in the morning lisinopril-hydroCHLOROthiazide 20-12.5 M G tablet Indications: Primary hypertension (CMS/HCC) Take 1 tablet by mouth in the morning and 1 tablet before bedtime. 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 Cardiac dysrhythmias (18 sources) Ventricular premature complex; Translations: [Ventricular premature depolarization] Onset: 02-06-2024 01-11-2024 Chronic Disorders of lipid metabolism (20 sources) Pure hyperglyceridemia; Translations: [Mixed hyperlipidemia] Onset: 10-04-2021 Chronic Esophageal disorders (15 sources) Gastroesophageal reflux disease; Translations: [Gastro-esophageal reflux disease without esophagitis] Onset: 08-28-2023 08-28-2023 Chronic Essential hypertension (20 sources) Hypertensive disorder; Translations: [Essential (primary) hypertension] Onset: 09-27-2022 Resolved: 06-07-2023 10-09-2019 Chronic Genitourinary symptoms and ill-defined conditions (6 sources) H/O: urethral stricture; Translations: [Microscopic hematuria] 10-09-2019 Episodic Hyperplasia of prostate (20 sources) Benign prostatic hypertrophy without outflow obstruction; Translations: [Benign prostatic hyperplasia without lower urinary tract symptoms] Onset: 02-01-2022 Chronic Immunizations and screening for infectious disease (2 sources) Needs influenza immunization; Translations: [Encounter for immunization] 06-03-2024 Episodic Mycoses (2 sources) Pain in toe; Translations: [Tinea unguium] 04-11-2024 Episodic Nonspecific chest pain (1 source) Chest pain, unspecified; Translations: [Chest pain, unspecified] Onset: 01-11-2024 Episodic Osteoarthritis (20 sources) Osteoarthritis of multiple joints ; Translations: [Polyosteoarthritis, unspecified] Onset: 08-28-2023 08-28-2023 Chronic Other aftercare (2 sources) Long-term current use of anticoagulant 10-09-2019 Episodic Other aftercare (1 source) Other fpc (current) drug therapy; Translations: [OTH ASSISTED CURRENT DRUG THERAPY] Onset: 07-31-2022 Episodic Other inflammatory condition of skin (4 sources) Psoriasis vulgaris; Translations: [PSORIASIS VULGARIS] Onset: 07-28-2022 Chronic Other inflammatory condition of skin (15 sources) Psoriasis; Translations: [Psoriasis, unspecified] Onset: 08-28-2023 08-28-2023 Chronic Other nutritional; endocrine; and metabolic disorders (20 sources) Body mass index 30+ - obesity; Translations: [Obesity, unspecified] Onset: 08-28-2023 08-28-2023 Chronic Residual codes; unclassified (8 sources) Obstructive sleep apnea syndrome; Translations: [Obstructive sleep apnea (adult) (pediatric)] Onset: 06-03-2024 06-03-2024 Chronic Retinal detachments; defects; vascular occlusion; and retinopathy (15 sources) Epiretinal membrane of right eye; Translations: [Puckering of macula, right eye] Onset: 11-05-2013 08-28-2023 Chronic Screening and history of mental health and substance abuse codes (2 sources) Ex-smoker 10-09-2019 Episodic Past or Other Problems Problem Classification Problem Date Documented Da te Episodic/Chronic Abdominal hernia (15 sources) Umbilical hernia; Translations: [Umbilical hernia without obstruction or gangrene] Onset: 08-28-2023 08-28-2023 Episodic Cardiac dysrhythmias (17 sources) Bradycardia; Translations: [Bradycardia, unspecified] Onset: 01-11-2024 01-11-2024 Episodic Mood disorders (15 sources) Mood disorders Onset: 08-28-2023 08-28-2023 Other connective tissue disease (4 sources) Pain in right leg; Translations: [PAIN IN RIGHT LEG] Onset: 04-14-2022 Episodic Other connective tissue disease (16 sources) Synovial cyst of popliteal space [Delgado], right knee; Translations: [Synovial cyst of popliteal space] Onset: 04-18-2022 08-28-2023 Episodic Other connective tissue disease (16 sources) Pain of left lower leg; Translations: [Pain in left lower leg] Onset: 03-27-2024 03-27-2024 Episodic Other connective tissue disease (13 sources) Pain in hallux; Translations: [Pain in right toe(s)] Onset: 04-02-2024 04-02-2024 Episodic Other screening for suspected conditions (not mental disorders or infectious disease) (20 sources) Raised prostate specific antigen; Translations: [Elevated prostate specific antigen [PSA]] Onset: 10-14-2021 Episodic Other upper respiratory infections (15 sources) Acute upper respiratory infection; Translations: [Acute upper respiratory infection, unspecified] Onset: 09-04-2023 Resolved: 11-28-2023 11-28-2023 Episodic Skin and subcutaneous tissue infections (14 sources) Cellulitis of left lower limb; Translations: [Cellulitis of left lower limb] Onset: 03-27-2024 04-02-2024 Episodic Superficial injury; contusion (17 sources) Contusion of chest; Translations: [Contusion of unspecified front wall of thorax, initial encounter] Onset: 01-11-2024 Resolved: 06-03-2024 12-29-2023 Episodic Unclassified (1 source) New Patient Onset: 02-09-2024 Results Test Name Value Interpretation Reference Range Facility QUANTIFERON-TB GOLD PLUSon 0 07-12-2024 QUANTIFERON CRITERIA Comment . [facility] Comment on above: QuantiFERON-TB Gold Plus is a qualitative indirect test for M tuberculosis infection (including disease) and is intended for use in conjunction with risk assessment, radiography, and other medical and diagnostic evaluations. The QuantiFERON-TB Gold Plus result is determined by subtracting the Nil value from either TB antigen (Ag) value. The Mitogen tube serves as a control for the test. QUANTIFERON INCUBATION . [facility] Comment on above: Incubation performed . Reference Range: . QUANTIFERON MITOGEN VALUE >10.00 . IU/mL [facility] QUANTIFERON NIL VALUE 0.01 . IU/mL [facility] QUANTIFERON TB1 AG VALUE 0.01 . IU/mL [facility] QUANTIFERON TB2 AG VALUE 0.00 . IU/mL [facility] QUANTIFERON-TB GOLD PLUS Negative Negative [facility] Comment on above: No response to M tub erculosis antigens detected. Infection with M tuberculosis is unlikely, but high risk individuals should be considered for additional testing (ATS/IDSA/CDC Clinical Practice Guidelines, 2017). The reference range is an Antigen minus Nil result of <0.35 IU/mL. Chemiluminescence immunoassay methodology Performed at: [facility] [id number] Visual Associate: Ortiz Courtney PhD, Phone: [phone] [facility] Follow-up visit [id number] Heather Mcmahon 1945 [facility] Provider Department Center [facility]20[facility] No family history on file Level of Service:37214 [place] OFFICE/OUTPATIENT NEW MODERATE MDM 45 MINUTES Reason for Visit and Comments: New Patient [Other] - Bradycardia Concerns: No further cardiac symptoms/concerns. Normal [facility] Alanine aminotransferase [En zymatic activity/volume] in Serum or PlasmaOrdered By: Kat Hua on 01-11-2024 ALT [Catalytic activity/Vol] 18 U/L Normal 7-[address] [facility] Comment on above: Performed By: #### C BC, CMP, CK, HS TROP ####[facility] [id number] [place] [address] [facility] Albumin [Mass/volume] in Ser um or Plasma by Bromocresol green (BCG) dye binding methoOrdered By: Kat Hua on 01-11-2024 Albumin BCG dye [Mass/Vol] 3.9 g/dL 3.5-5.[address] [facility] Alkaline phosphatase [Enzyma tic activity/volume] in Serum or PlasmaOrdered By: Kat Hua on 01-11-2024 ALP [Catalytic activity/Vol] 117 U/L High 34-[address] [facility] Comment on above: Performed By: #### C BC, CMP, CK, HS TROP ####[place] [address] [address] Aspartate aminotransferase [ Enzymatic activity/volume] in Serum or PlasmaOrdered By: Kat Hua on 01-11-2024 AST [Catalytic activity/Vol] 19 U/L Normal 13-[address] [facility] Comment on above: Performed By: #### C BC, CMP, CK, HS TROP ####[address] Automated basophil %Ordered By: Kat Hua on 01-11-2024 Basophils/100 WBC (Bld) 0.9 % Normal . [facility] Comment on above: Performed By: #### C BC, CMP, CK, HS TROP ####[address] Automated basophil countOrde red By: Kat Hua on 01-11-2024 Basophils (Bld) [#/Vol] 0.1 10*3/uL Normal 0.0-0.[address] [facility] Comment on above: Result Comment: PERF ORMED BY: [facility] [address] [place] [address] PATHOLOGIST PROCESS ARCHITECT OLENA ZULETA M.D. Performed By: #### C BC, CMP, CK, HS TROP ####[address] Automated blood monocyte cou ntOrdered By: Kat Hua on 01-11-2024 Monocytes (Bld) [#/Vol] 0.8 10*3/uL Normal 0.0-0.[address] [facility] Comment on above: Performed By: #### C BC, CMP, CK, HS TROP ####[address] Automated eosinophil %Ordere d By: Kat Hua on 01-11-2024 Eosinophils/100 WBC (Bld) 1.7 % Normal . [facility] Comment on above: Performed By: #### C BC, CMP, CK, HS TROP ####[place] [id number] [facility] Automated eosinophil countOr dered By: Kat Hua on 01-11-2024 Eosinophils (Bld) [#/Vol] 0.1 10*3/uL Normal 0.0-0.[address] [facility] Comment on above: Performed By: #### C BC, CMP, CK, HS TROP ####[place] [id number] [facility] Automated monocyte %Ordered By: Kat Hua on 01-11-2024 Monocytes/100 WBC (Bld) 12.4 % Normal . [facility] Comment on above: Performed By: #### C BC, CMP, CK, HS TROP ####[place] [id number] [facility] Automated neutrophil %Ordere d By: Kat Hua on 01-11-2024 Neutrophils/100 WBC (Bld) 65.6 % Normal . [facility] Comment on above: Performed By: #### C BC, CMP, CK, HS TROP ####[place] [id number] [facility] Bilirubin.total [Mass/volume ] in Serum or PlasmaOrdered By: Kat Hua on 01-11-2024 Bilirubin [Mass/Vol] 0.5 mg/dL Normal 0.3-1.0 [facility] Comment on above: Performed By: #### C BC, CMP, CK, HS TROP ####[place] [id number] [facility] Calcium [Mass/volume] in Ser um or PlasmaOrdered By: Kat Hua on 01-11-2024 Calcium [Mass/Vol] 9.1 mg/dL Normal 8.6-10.3 [facility] Comment on above: Performed By: #### C BC, CMP, CK, HS TROP ####[place] [id number] [facility] Carbon dioxide, total [Moles /volume] in Serum or PlasmaOrdered By: Kat Hua on 01-11-2024 CO2 [Moles/Vol] 30.4 mmol/L Normal 21.0-31.0 [facility] Comment on above: Performed By: #### C BC, CMP, CK, HS TROP ####[place] [address] [address] Chloride [Moles/volume] in [place] or PlasmaOrdered By: Kat Hua on 01-11-2024 Chloride [Moles/Vol] 105 mmol/L Normal 98-107 [facility] Comment on above: Performed By: #### C BC, CMP, CK, HS TROP ####[place] [address] [address] Complete Blood Count Auto Di ffon 01-11-2024 Mean Corpuscular HGB Conc 34.2 g/dL Normal 32.5-35.6 [facility] Comment on above: Performed By: #### C BC, CMP, CK, HS TROP ####[address] Monocytes/100 WBC (Bld) 20.54 % High 0.00-20.00 [facility] Comment on above: Result Comment: For adults in ED, MDW > 20.0 may be associated with a higher risk of sepsis during the first 12 hrs of hospital admission Performed By: #### C BC, CMP, CK, HS TROP ####[address] NRBC% 0.0 /100{WBC} Normal 0-0.5 [facility] Comment on above: Performed By: #### C BC, CMP, CK, HS TROP ####[place] [id number] [facility] Comprehensive Metabolic Pane kyle 01-11-2024 Albumin [Mass/Vol] 3.9 g/dL Normal 3.5-5.7 [facility] Comment on above: Performed By: #### C BC, CMP, CK, HS TROP ####[place] [id number] [facility] Creatinine Clr Calc Pharmacy 70.52 Normal [facility] Comment on above: Result Comment: PERF ORMED BY: [place] [address] PATHOLOGIST PROCESS ARCHITECT OLENA ZULETA M.D. Performed By: #### C BC, CMP, CK, HS TROP ####[place] [id number] [facility] GFR/1.73 sq M.predicted MDRD (S/P/Bld) [Vol rate/Area] mL/min/{1.73_m2} Normal [facility] Comment on above: Performed By: #### C BC, CMP, CK, HS TROP ####[address] Creatine kinase [Enzymatic a ctivity/volume] in Serum or PlasmaOrdered By: Kat Hua on 01-11-2024 CK [Catalytic activity/Vol] 128 U/L Normal 30-[address] [facility] Comment on above: Performed By: #### C BC, CMP, CK, HS TROP ####[place] [id number] [facility] Creatinine [Mass/volume] in Serum or PlasmaOrdered By: Kat Hua on 01-11-2024 Creatinine [Mass/Vol] 1.03 mg/dL Normal 0.70-1.30 [facility] Comment on above: Performed By: #### C BC, CMP, CK, HS TROP ####[place] [id number] [facility] ECG 12 lead ECGon 01-11-2024 ECG 12 lead ECG [facility] [place] [address] Electrocardiograph Report Signed Patient: Heather Mcmahon MR#: [id number] : 1945 Acct:[id number] Age/Sex: 78 / M ADM Date: 01/11/24 Loc: ER Room: Type: [facility] ER Attending Dr: Ordering Provider: Kat Hua [...] MUS Signed By Kat Hua MD 01/11/24 1939 Normal [facility] Erythrocyte distribution wid th [Ratio] by Automated countOrdered By: Kat Hua on 01-11-2024 Erythrocyte distribution width (RBC) [Ratio] 13.1 % Normal 12.0-14.[address] [facility] Comment on above: Performed By: #### C BC, CMP, CK, HS TROP ####[facility] [id number] [place] [id number] [place] Erythrocytes [#/volume] in B lood by Automated countOrdered By: Kat Hua on 01-11-2024 RBC (Bld) [#/Vol] 4.77 10*6/uL Normal 3.90-5.60 [facility] Comment on above: Performed By: #### C BC, CMP, CK, HS TROP ####[facility] [id number] [place] [address] [facility] Glucose [Mass/volume] in Ser um or PlasmaOrdered By: Kat Hua on 01-11-2024 Glucose [Mass/Vol] 103 mg/dL High 70-100 [facility] Comment on above: ADA recommended refe rence rangeRandom Glucose Reference Range is dependent on time and content of last meal. Glucose of more than 200 mg/dL in a nonstressed, ambulatory subject supports the diagnosis of Diabetes Mellitus. Result Comment: [place] om Glucose Reference Range is dependent on time and content of last meal. Glucose of more than 200 mg/dL in a nonstressed, ambulatory subject supports the diagnosis of Diabetes Mellitus. ADA recommended reference range Performed By: #### C BC, CMP, CK, HS TROP ####[address] Hematocrit [Volume Fraction] of Blood by Automated countOrdered By: Kat Hua on 01-11-2024 Hematocrit (Bld) [Volume fraction] 43.8 % Normal 38.8-50.[address] [facility] Comment on above: Performed By: #### C BC, CMP, CK, HS TROP ####[address] Hemoglobin [Mass/volume] in BloodOrdered By: Kat Hua on 01-11-2024 Hemoglobin (Bld) [Mass/Vol] 15.0 g/dL Normal 13.0-17.[address] [facility] Comment on above: Performed By: #### C BC, CMP, CK, HS TROP ####[address] Leukocytes [#/volume] correc wilfred for nucleated erythrocytes in Blood by Automated counOrdered By: Kat Hua on 01-11-2024 WBC corrected for nucl RBC Auto (Bld) [#/Vol] 6.6 10*3/uL 4.1-10.[address] [facility] Leukocytes [#/volume] in Blo od by Automated countOrdered By: Kat Hua on 01-11-2024 WBC (Bld) [#/Vol] 6.6 10*3/uL Normal 4.1-10.5 [facility] Comment on above: Performed By: #### C BC, CMP, CK, HS TROP ####[address] Lymphocytes [#/volume] in Bl ood by Automated countOrdered By: Kat Hua on 01-11-2024 Lymphocytes (Bld) [#/Vol] 1.3 10*3/uL Normal 1.00-4.[address] [facility] Comment on above: Performed By: #### C BC, CMP, CK, HS TROP ####[address] Lymphocytes/100 leukocytes i n Blood by Automated countOrdered By: Kat Hua on 01-11-2024 Lymphocytes/100 WBC (Bld) 19.4 % Normal . [facility] Comment on above: Performed By: #### C BC, CMP, CK, HS TROP ####[place] [address] [address] MCH [Entitic mass] by Automa wilfred countOrdered By: Kat Hua on 01-11-2024 MCH (RBC) [Entitic mass] 31.5 pg Normal 27.5-35.[address] [facility] Comment on above: Performed By: #### C BC, CMP, CK, HS TROP ####[address] MCHC Auto (RBC) [Mass/Vol]Or dered By: Kat Hua on 01-11-2024 MCHC (RBC) [Mass/Vol] 34.2 g/dL 32.5-35.6 [facility] MCV [Entitic volume] by Auto mated countOrdered By: Kat Hua on 01-11-2024 MCV (RBC) [Entitic vol] 92.0 fL Normal 83.5-101 [facility] Comment on above: Performed By: #### C BC, CMP, CK, HS TROP ####[address] Monocyte distribution width [Entitic volume] in Blood by AutomatedOrdered By: Kat Hua on 01-11-2024 Monocyte distribution width Auto (Bld) [Entitic vol] 20.54 % High 0.00-20.[address] [facility] Comment on above: For adults in ED, MD W > 20.0 may be associated with a higher risk of sepsis during the first 12 hrs of hospital admission Neutrophils [#/volume] in Bl ood by Automated countOrdered By: Kat Hua on 01-11-2024 Neutrophils (Bld) [#/Vol] 4.4 10*3/uL Normal 1.8-7.[address] [facility] Comment on above: Performed By: #### C BC, CMP, CK, HS TROP ####[address] No Panel InformationOrdered By: Kat Hua on 01-11-2024 Estimated GFR (CKD-EPI) > 60.0 mL/Min [facility] Creatinine Clearance (Chem 70.[address] [facility] Nucleated erythrocytes [Pres ence] in Blood by Automated countOrdered By: Kat Hua on 01-11-2024 Nucleated RBC Auto Ql (Bld) 0.0 /100{WBC} 0-0.[address] [facility] Platelet mean volume [Entiti c volume] in Blood by Automated countOrdered By: Kat Hua on 01-11-2024 Platelet mean volume (Bld) [Entitic vol] 7.4 fL Normal 6.6-10.[address] [facility] Comment on above: Performed By: #### C BC, CMP, CK, HS TROP ####[place] [address] [address] Platelets [#/volume] in Bloo d by Automated countOrdered By: Kat Hua on 01-11-2024 Platelets (Bld) [#/Vol] 256 10*3/uL Normal 150-[address] [facility] Comment on above: Performed By: #### C BC, CMP, CK, HS TROP ####[place] [address] [place] [id number] [facility] Potassium [Moles/volume] in Serum or PlasmaOrdered By: Kat Hua on 01-11-2024 Potassium [Moles/Vol] 4.2 mmol/L Normal 3.5-5.1 [facility] Comment on above: Performed By: #### C BC, CMP, CK, HS TROP ####[place] [address] [place] [id number] [facility] Protein [Mass/volume] in Ser um or PlasmaOrdered By: Kat Hua on 01-11-2024 Protein [Mass/Vol] 6.3 g/dL Low 6.4-8.9 [facility] Comment on above: Performed By: #### C BC, CMP, CK, HS TROP ####[place] [address] [place] [id number] [facility] Serum globulin measurement b y calculation (mass/volume)Ordered By: Kat Hua on 01-11-2024 Globulin (S) [Mass/Vol] 2.4 g/dL Normal [facility] Comment on above: Performed By: #### C BC, CMP, CK, HS TROP ####[address] Serum or plasma albumin/glob ulin mass ratioOrdered By: Kat Hua on 01-11-2024 Albumin/Globulin [Mass ratio] 1.6 {ratio} Normal [facility] Comment on above: Performed By: #### C BC, CMP, CK, HS TROP ####[address] Serum or plasma anion gap de terminationOrdered By: Kat Hua on 01-11-2024 Anion gap [Moles/Vol] 7.8 mmol/L Normal 6.0-15.0 [facility] Comment on above: Performed By: #### C BC, CMP, CK, HS TROP ####[address] Sodium [Moles/volume] in Ser um or PlasmaOrdered By: Kat Hua on 01-11-2024 Sodium [Moles/Vol] 139 mmol/L Normal 136-145 [facility] Comment on above: Performed By: #### C BC, CMP, CK, HS TROP ####[address] Troponin I High Sensitivityo n 01-11-2024 Troponin I High Sensitivity 5.9 pg/mL Normal 0.0-20.0 [facility] Comment on above: Result Comment: PERF ORMED BY: [facility] [address] [place] [address] PATHOLOGIST PROCESS ARCHITECT OLENA ZULETA M.D. Performed By: #### C BC, CMP, CK, HS TROP ####[address] Troponin I.cardiac [Mass/vol ume] in Serum or Plasma by Detection limit <= 0.01 ng/Ordered By: Kat Hua on 01-11-2024 Troponin I.cardiac DL <= 0.01 ng/mL [Mass/Vol] 5.9 pg/mL 0.0-20.[address] [facility] Urea nitrogen [Mass/volume] in Serum or PlasmaOrdered By: Kat Hua on 01-11-2024 Urea nitrogen [Mass/Vol] 22 mg/dL Normal 01-[address] [facility] Comment on above: Performed By: #### C BC, CMP, CK, HS TROP ####[facility] [address] [place] [address] [facility] XR chest 1V portableon 01-10 XR chest 1V portable [facility] [place] [address] [place] [id number] XRay Report Signed Patient: Heather Mcmahon MR#: [id number] : 1945 Acct:[id number] Age/Sex: 78 / M ADM Date: 01/11/24 Loc: ER Room: Type: [facility] ER Attending Dr: Copies to: [...] Milagro Ortiz M.D.01/11/2024 3:17 PM Dictation Location: [place]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 [address] [address] [address] Navjot Fitzgerald AST [Catalytic activity/Vol] 26 U/L Normal 15-37 [facility] Comment on above: Performed By: #### C MP, LIPID #### [facility] [address] [address] [address] Navjot Fitzgerald Bilirubin [Mass/Vol] 0.6 mg/dL Normal 0.2-1.0 [facility] Comment on above: Performed By: #### C MP, LIPID #### [facility] [address] [place] [address] Dr. Navjot Fitzgerald Calcium [Mass/Vol] 9.1 mg/dL Normal 8.5-10.1 [facility] Comment on above: Performed By: #### C MP, LIPID #### [facility] [address] [address] [address] Navjot Fitzgerald Chloride [Moles/Vol] 108 mmol/L Critically high 98-107 [facility] Comment on above: Performed By: #### C MP, LIPID #### [facility] [address] [address] [address] Navjot Fitzgerald CO2 [Moles/Vol] 28.3 mmol/L Normal 21.0-32.0 [facility] Comment on above: Performed By: #### C MP, LIPID #### [facility] [address] [place] [address] Dr. Navjot Fitzgerald Creatinine [Mass/Vol] 1.00 mg/dL Normal 0.70-1.30 [facility] Comment on above: Performed By: #### C MP, LIPID #### [facility] [address] [address] [address] Navjot Fitzgerald EGFR-AF LAO >60 Normal >=60 [facility] Comment on above: Performed By: #### C MP, LIPID #### [facility] [address] [address] [address] Navjot Fitzgerald EGFR-NON AF LAO >60 Normal >=60 [facility] Comment on above: Performed By: #### C MP, LIPID #### [facility] [address] [address] [address] Navjot Fitzgerald Globulin (S) [Mass/Vol] 3.4 g/dL Normal [facility] Comment on above: Performed By: #### C MP, LIPID #### [facility] [address] [address] [address] Navjot Fitzgerald Glucose [Mass/Vol] 105 mg/dL Normal 74-106 [facility] Comment on above: Performed By: #### C MP, LIPID #### [facility] [address] [place] [address] Dr. Navjot Fitzgerald Potassium [Moles/Vol] 4.0 mmol/L Normal 3.5-5.1 [facility] Comment on above: Performed By: #### C MP, LIPID #### [facility] [address] [address] [address] Navjot Fitzgerald Protein [Mass/Vol] 7.2 g/dL Normal 6.4-8.2 [facility] Comment on above: Performed By: #### C MP, LIPID #### [facility] [address] [address] [address] Navjot Fitzgerald Sodium [Moles/Vol] 144 mmol/L Normal 136-145 [facility] Comment on above: Performed By: #### C MP, LIPID #### [facility] [address] [address] [address] Navjot Fitzgerald Urea nitrogen [Mass/Vol] 21.0 mg/dL Critically high 7.0-18 .0 [facility] Comment on above: Performed By: #### C MP, LIPID #### [facility] [address] [address] [address] Navjot Fitzgerald Urea nitrogen/Creatinine [Mass ratio] 21.0 mg/mg Normal [facility] Comment on above: Performed By: #### C MP, LIPID #### [facility] [address] [address] [address] Navjot Fitzgerald UA RANDOM W/MICROSCOPICon BACTERIA NONE SEEN Normal NONE SEEN [facility] Comment on above: Performed By: #### U AMIC #### [facility] [address] [address] [address] Navjot Fitzgerald Bilirubin Ql (U) Negative Normal NEGATIVE [facility] Comment on above: Performed By: #### U AMIC #### [facility] [address] [address] [address] Navjot Fitzgerald CAST NONE SEEN Normal NONE SEEN [facility] Comment on above: Performed By: #### U AMIC #### [facility] [address] [address] [address] Navjot Fitzgerald Clarity (U) CLEAR Normal CLEAR [facility] Comment on above: Performed By: #### U AMIC #### [facility] [address] [address] [address] Navjot Fitzgerald Color (U) LT. YELLOW Normal YELLOW [facility] Comment on above: Performed By: #### U AMIC #### [facility] [address] [address] [address] Navjot Fitzgerald Crystals LM Nom (Urine sed) NONE SEEN Normal NONE SEEN [facility] Comment on above: Performed By: #### U AMIC #### [facility] [address] [address] [address] Navjot Fitzgerald Epithelial cells LM Ql (Urine sed) NONE SEEN Normal NONE SEEN /RARE [facility] Comment on above: Performed By: #### U AMIC #### [facility] [address] [address] [address] Navjot Fitzgerald Glucose Ql (U) Negative Normal NEGATIVE [facility] Comment on above: Performed By: #### U AMIC #### [facility] [address] [place] [address] Dr. Navjot Fitzgerald Hemoglobin Ql (U) Negative Normal NEGATIVE [facility] Comment on above: Performed By: #### U AMIC #### [facility] [address] [address] [address] Navjot Fitzgerald Ketones Ql (U) Negative Normal NEGATIVE [facility] Comment on above: Performed By: #### U AMIC #### [facility] [address] [place] [address] Dr. Navjot Fitzgerald LEUKOCYTES Negative Normal NEGATIVE [facility] Comment on above: Performed By: #### U AMIC #### [facility] [address] [place] [address] Dr. Navjot Fitzgerald MUCOUS NONE SEEN Normal NONE SEEN [facility] Comment on above: Performed By: #### U AMIC #### [facility] [address] [place] [address] Dr. Navjot Fitzgerald Nitrite Ql (U) Negative Normal NEGATIVE [facility] Comment on above: Performed By: #### U AMIC #### [facility] [address] [place] [address] Dr. Navjot Fitzgerald pH (U) 7.0 [pH] Normal 5-9 [facility] Comment on above: Performed By: #### U AMIC #### [facility] [address] [place] [address] Dr. Navjot Fitzgerald RBC NONE SEEN Abnormal 0-2 [facility] Comment on above: Performed By: #### U AMIC #### [facility] [address] [place] [address] Dr. Navjot Fitzgerald SPEC GRAVITY 1.010 Normal 1.005-<=1.02 5 [facility] Comment on above: Performed By: #### U AMIC #### [facility] [address] [place] [address] Dr. Navjot Fitzgerald UA PROTEIN Negative Normal NEGATIVE/ TRACE [facility] Comment on above: Performed By: #### U AMIC #### [facility] [address] [place] [address] Dr. Navjot Fitzgerald Urobilinogen Qn (U) 0.2 {Marita'U}/dL Normal 0.2 - 1. 0 [facility] Comment on above: Performed By: #### U AMIC #### [facility] [address] [place] [address] Dr. Navjot Fitzgerald WBC NONE SEEN Normal NONE SEEN [facility] Comment on above: Performed By: #### U AMIC #### [facility] [address] [place] [address] Dr. Navjot Fitzgerald QUANTIFERON TB GOLD PLUSon 0 07-30-2022 QuantiFERON Criteria Comment Normal [facility] Comment on above: Result Comment: Braden [...] test. Performed By: #### Q NTTB #### [facility] [address] [place] [address] Dr. Navjot Fitzgerald QuantiFERON Incubation Incubation performed. Normal [facility] Comment on above: Performed By: #### Q NTTB #### [facility] [address] [place] [address] Dr. Navjot Fitzgerald QuantiFERON Mitogen Value >10.00 Normal [facility] Comment on above: Performed By: #### Q NTTB #### [facility] [address] [place] [address] Dr. Navjot Fitzgerald QuantiFERON Nil Value 0.02 IU/mL Normal [facility] Comment on above: Performed By: #### Q NTTB #### [facility] [address] [place] [address] Dr. Navjot Fitzgerald QuantiFERON TB1 Ag Value 0.02 IU/mL Normal [facility] Comment on above: Performed By: #### Q NTTB #### [facility] [address] [place] [address] Dr. Navjot Fitzgerald QuantiFERON TB2 Ag Value 0.02 IU/mL Normal [facility] Comment on above: Performed By: #### Q NTTB #### [facility] [address] [place] [address] Dr. Navjot Fitzgerald QuantiFERON-TB Gold Plus Negative Normal Negative [facility] Comment on above: Result Comment: No r esponse to M tuberculosis antigens detected. Infection with M tuberculosis is unlikely, but high risk individuals should be considered for additional testing (ATS/IDSA/CDC Clinical Practice Guidelines, 2017). The reference range is an Antigen minus Nil result of <0.35 IU/mL. Chemiluminescence immunoassay methodology Performed By: #### Q NTTB #### [facility] [address] [address] [address] Navjot Fitzgerald US MINDY DOP LEG RTon 04-14-20 22 US MINDY DOP LEG RT ULTRASOUND RIGHT [...] MIKAELA BARRERA Date: 2022-04-14 16:06 Normal [facility] LIVER PROFILEon 10-14-2021 Albumin [Mass/Vol] 3.6 g/dL Normal 3.4-5.0 [facility] Comment on above: Performed By: #### L IVER #### [facility] [address] [address] [address] Navjot Fitzgerald Albumin/Globulin [Mass ratio] 1.0 {ratio} Normal [facility] Comment on above: Performed By: #### L IVER #### [facility] [address] [address] [address] Navjot Fitzgerald ALP [Catalytic activity/Vol] 107 U/L Normal 46-116 [facility] Comment on above: Performed By: #### L IVER #### [facility] [address] [address] [address] Navjot Fitzgerald ALT [Catalytic activity/Vol] 50 U/L Normal 16-63 [facility] Comment on above: Performed By: #### L IVER #### [facility] [address] [address] [address] Navjot Fitzgerald AST [Catalytic activity/Vol] 25 U/L Normal 15-37 [facility] Comment on above: Performed By: #### L IVER #### [facility] [address] [address] [address] Navjot Fitzgerald BILI, CONJUGATED 0.2 mg/dL Normal 0.0-0.3 [facility] Comment on above: Performed By: #### L IVER #### [facility] [address] [address] [address] Navjot Fitzgerald Bilirubin [Mass/Vol] 0.6 mg/dL Normal 0.2-1.3 [facility] Comment on above: Performed By: #### L IVER #### [facility] [address] [address] [address] Navjot Fitzgerald Globulin (S) [Mass/Vol] 3.5 g/dL Normal T [facility] Comment on above: Performed By: #### L IVER #### [facility] [address] [address] [address] Navjot Fitzgerald Protein [Mass/Vol] 7.1 g/dL Normal 6.1-8.2 [facility] Comment on above: Performed By: #### L IVER #### [facility] [address] [address] [address] Navjot Fitzgerald QUANTIFERON TB GOLD PLUSon 0 10-03-2021 QuantiFERON Criteria Comment Normal [facility] Comment on above: Result Comment: The QuantiFERON-TB Gold Plus result is determined by subtracting the Nil value from either TB antigen (Ag) tube. The mitogen tube serves as a control for the test. Performed By: #### Q NTTB ####[facility] [id number] [address] Navjot Fitzgerald QuantiFERON Incubation Incubation performed. Normal [facility] Comment on above: Performed By: #### Q NTTB ####[facility] [id number] [id number] Navjot Fitzgerald QuantiFERON Mitogen Value >10.00 Normal [facility] Comment on above: Performed By: #### Q NTTB ####[facility] [id number] [address]Dr[address] Navjot Fitzgerald QuantiFERON Nil Value 0.05 IU/mL Normal [facility] Comment on above: Performed By: #### Q NTTB ####[facility] [id number] [address]Dr[address] Navjot Fitzgerald QuantiFERON TB1 Ag Value 0.05 IU/mL Normal [facility] Comment on above: Performed By: #### Q NTTB ####[facility] [id number] [address]Dr[address] Navjot Fitzgerald QuantiFERON TB2 Ag Value 0.06 IU/mL Normal [facility] Comment on above: Performed By: #### Q NTTB ####[facility] [id number] [address]Dr[address] Navjot Fitzgerald QuantiFERON-TB Gold Plus Negative Normal Negative [facility] Comment on above: Result Comment: Chem iluminescence immunoassay methodology Performed By: #### Q NTTB ####[facility] [id number] [address]Dr[address] Navjot Fitzgerald CBC AUTO DIFFon 09-30-2021 BASO # 0.0 103/ul Normal 0.0-0.1 [facility] Comment on above: Performed By: #### C BC #### [facility] [address] [address] [address] Navjot Fitzgerald Basophils/100 WBC (Bld) 0.5 % Normal 0.2-2.0 [facility] Comment on above: Performed By: #### C BC #### [facility] [address] [address] [address] Navjot Fitzgerald EO # 0.2 103/ul Normal 0.0-0.7 [facility] Comment on above: Performed By: #### C BC #### [facility] [address] [address] [address] Navjot Fitzgerald Eosinophils/100 WBC (Bld) 4.2 % Normal 0.9-7.0 [facility] Comment on above: Performed By: #### C BC #### [facility] [address] [address] [address] Navjot Fitzgerald Erythrocyte distribution width (RBC) [Ratio] 12.3 % Normal 11.0-15.0 [facility] Comment on above: Performed By: #### C BC #### [facility] [address] [place] [address] Dr. Navjot Fitzgerald Hematocrit (Bld) [Volume fraction] 45.5 % Normal 42.0-54.0 [facility] Comment on above: Performed By: #### C BC #### [facility] [address] [place] [address] Dr. Navjot Fitzgerald Hemoglobin (Bld) [Mass/Vol] 15.8 g/dL Normal 14.0-18.0 [facility] Comment on above: Performed By: #### C BC #### [facility] [address] [place] [address] Dr. Navjot Fitzgerald IG # 0.03 10e3/ul Normal 0.00-0.03 [facility] Comment on above: Performed By: #### C BC #### [facility] [address] [place] [address] Dr. Navjot Fitzgerald IG % 0.5 % Normal 0.0-0.5 [facility] Comment on above: Performed By: #### C BC #### [facility] [address] [place] [address] Dr. Navjot Fitzgerald LYMPH # 1.7 103/ul Normal 1.2-3.8 [facility] Comment on above: Performed By: #### C BC #### [facility] [address] [place] [address] Dr. Navjot Fitzgerald Lymphocytes/100 WBC (Bld) 29.6 % Normal 20.5-60.0 [facility] Comment on above: Performed By: #### C BC #### [facility] [address] [place] [address] Dr. Navjot Fitzgerald MANUAL DIFF REQ NO Normal [facility] Comment on above: Performed By: #### C BC #### [facility] [address] [place] [address] Dr. Navjot Fitzgerald MCH (RBC) [Entitic mass] 31.3 pg Normal 25.9-34.0 [facility] Comment on above: Performed By: #### C BC #### [facility] [address] [place] [address] Dr. Navjot Fitzgerald MCHC (RBC) [Mass/Vol] 34.7 g/dL Normal 29.9-35.2 [facility] Comment on above: Performed By: #### C BC #### [facility] [address] [place] [address] Dr. Navjot Fitzgerald MCV (RBC) [Entitic vol] 90.3 fL Normal 80.0-94.0 [facility] Comment on above: Performed By: #### C BC #### [facility] [address] [place] [address] Dr. Navjot Fitzgerald MONO # 0.6 103/ul Normal 0.3-0.8 [facility] Comment on above: Performed By: #### C BC #### [facility] [address] [place] [address] Dr. Navjot Fitzgerald Monocytes/100 WBC (Bld) 10.6 % Normal 1.7-12.0 [facility] Comment on above: Performed By: #### C BC #### [facility] [address] [place] [address] Dr. Navjot Fitzgerald NEUT # 3.2 103/ul Normal 1.4-6.5 [facility] Comment on above: Performed By: #### C BC #### [facility] [address] [place] [address] Dr. Navjot Fitzgerald Neutrophils/100 WBC (Bld) 54.6 % Normal 43.0-75.0 [facility] Comment on above: Performed By: #### C BC #### [facility] [address] [place] [address] Dr. Navjot Fitzgerald Platelet mean volume (Bld) [Entitic vol] 9.2 fL Critically low 9.5-13.5 [facility] Comment on above: Performed By: #### C BC #### [facility] [address] [place], [place] [address] Dr. Navjot Fitzgerald PLT 237 103/ul Normal 150-450 [facility] Comment on above: Performed By: #### C BC #### [facility] [id number] Navjot Fitzgerald RBC 5.04 106/ul Normal 4.70-6.10 [facility] Comment on above: Performed By: #### C BC #### [facility] [id number] Navjot Fitzgerald WBC 5.8 103/ul Normal 4.0-11.0 [facility] Comment on above: Performed By: #### C BC #### [facility] [address] [address] [address] Navjot Fitzgerald LIPID PROFILEon 09-30-2021 CHOL-HDL RATIO NORM SEE BELOW Normal [facility] Comment on above: Result Comment: 3.3 - 4.4 LOW RISK 4.4 - 7.1 AVERAGE RISK 7.1 - 11.0 MODERATE RISK >11.0 HIGH RISK Performed By: #### C MP, LIPID ####[facility] [id number] [phone]. Navjot Fitzgerald Cholesterol [Mass/Vol] 128 mg/dL Normal <=200 [facility] Comment on above: Performed By: #### C MP, LIPID ####[facility] [id number] [phone]. Navjot Fitzgerald Cholesterol in HDL [Mass/Vol] 42 mg/dL Normal 40-60 [facility] Comment on above: Performed By: #### C MP, LIPID ####[facility] [address] [place], [place] [address]Rc. Navjot Fitzgerald Cholesterol in LDL [Mass/Vol] 72.6 mg/dL Normal [facility] Comment on above: Performed By: #### C MP, LIPID ####[facility] [address] [place], [place] [address]Qw. Navjot Fitzgerald Cholesterol.total/Choles terol in HDL [Mass ratio] 3.0 {ratio} Normal [facility] Comment on above: Performed By: #### C MP, LIPID ####[facility] [id number] [address]Dr. Navjot Fitzgerald HDL NORMAL > or = 60 mg/dl - LOW CARDIOVASCULAR RISK <40 mg/dl - HIGH CARDIOVASCULAR RISK Normal [facility] Comment on above: Performed By: #### C MP, LIPID ####[facility] [id number] [address]Dr. Navjot Fitzgerald LDL CALC NORMAL SEE BELOW Normal [facility] Comment on above: Result Comment: <100 mg/dl OPTIMAL 100 - 129 mg/dl NEAR OR ABOVE OPTIMAL 130 - 159 mg/dl BORDERLINE HIGH 160 - 189 mg/dl HIGH >190 mg/dl VERY HIGH Performed By: #### C MP, LIPID ####[facility] [id number] [address]Dr. Navjot Fitzgerald Triglyceride [Mass/Vol] 67 mg/dL Normal <=150 [facility] Comment on above: Performed By: #### C MP, LIPID ####[facility] [id number] [address]Dr. Navjot Fitzgerald VLDL CALC 13.4 mg/dL Normal [facility] Comment on above: Performed By: #### C MP, LIPID ####[facility] [address] [address]Dr. Navjot Fitzgerald PROF 14(COMP METB)on 022 Albumin [Mass/Vol] 3.4 g/dL Normal 3.4-5.0 [facility] Comment on above: Performed By: #### C MP, LIPID ####[facility] [address] [address]Dr. Navjot Fitzgerald Albumin/Globulin [Mass ratio] 0.9 {ratio} Normal [facility] Comment on above: Performed By: #### C MP, LIPID ####[facility] [id number] [address]Dr. Navjot Fitzgerald ALP [Catalytic activity/Vol] 106 U/L Normal 46-116 [facility] Comment on above: Performed By: #### C MP, LIPID ####[facility] [address] [address]Dr. Navjot Fitzgerald ALT [Catalytic activity/Vol] 74 U/L Critically high 16-63 [facility] Comment on above: Result Comment: SPEC IMEN SLIGHTLY HEMOLIZED--NOTIFY LAB IF REDRAW REQUESTED Performed By: #### C MP, LIPID ####[facility] [address] [address]Dr. Navjot Fitzgerald Anion gap [Moles/Vol] 12.5 mmol/L Normal [facility] Comment on above: Performed By: #### C MP, LIPID ####[facility] [address] [address]Dr. Navjot Fitzgerald AST [Catalytic activity/Vol] 65 U/L Critically high 15-37 [facility] Comment on above: Result Comment: SPEC IMEN SLIGHTLY HEMOLIZED--NOTIFY LAB IF REDRAW REQUESTED Performed By: #### C MP, LIPID ####[facility] [address] [place], [place] [address]Dr. Navjot Fitzgerald Bilirubin [Mass/Vol] 0.8 mg/dL Normal 0.2-1.3 [facility] Comment on above: Performed By: #### C MP, LIPID ####[facility] [address] [place], [place] [address]Dr. Navjot Fitzgerald Calcium [Mass/Vol] 8.6 mg/dL Normal 8.5-10.1 [facility] Comment on above: Performed By: #### C MP, LIPID ####[facility] [address] [place], [place] [address]Dr. Navjot Fitzgerald Chloride [Moles/Vol] 103 mmol/L Normal 98-107 [facility] Comment on above: Performed By: #### C MP, LIPID ####[facility] [address] [place], [place] [address]Dr. Navjot Fitzgerald CO2 [Moles/Vol] 27.7 mmol/L Normal 22.0-30.0 [facility] Comment on above: Performed By: #### C MP, LIPID ####[facility] [address] [address]Dr. Navjot Fitzgerald Creatinine [Mass/Vol] 0.74 mg/dL Normal 0.66-1.25 [facility] Comment on above: Performed By: #### C MP, LIPID ####[facility] [address] [address]Dr. Navjot Fitzgerald EGFR-AF LAO >60 Normal >=60 [facility] Comment on above: Performed By: #### C MP, LIPID ####[facility] [address] [address]Dr. Navjot Fitzgerald EGFR-NON AF LAO >60 Normal >=60 [facility] Comment on above: Performed By: #### C MP, LIPID ####[facility] [address] [place], [place] [address]Dr. Navjot Fitzgerald Globulin (S) [Mass/Vol] 3.8 g/dL Normal T [facility] Comment on above: Performed By: #### C MP, LIPID ####[facility] [address] [place], [place] [address]Dr. Navjot Fitzgerald Glucose [Mass/Vol] 98 mg/dL Normal 74-106 [facility] Comment on above: Performed By: #### C MP, LIPID ####[facility] [id number] [place], [place] [address]Dr. Navjot Fitzgerald Potassium [Moles/Vol] 4.2 mmol/L Normal 3.4-5.0 [facility] Comment on above: Result Comment: SPEC IMEN SLIGHTLY HEMOLIZED--NOTIFY LAB IF REDRAW REQUESTED Performed By: #### C MP, LIPID ####[facility] [address] [address]Dr. Kristaabhinav Fitzgerald Protein [Mass/Vol] 7.2 g/dL Normal 6.1-8.2 [facility] Comment on above: Performed By: #### C MP, LIPID ####[facility] [address] [address]Dr. Navjot Fitzgerald Sodium [Moles/Vol] 139 mmol/L Normal 137-145 [facility] Comment on above: Performed By: #### C MP, LIPID ####[facility] [address] [place], [place] [address]IbJohanna Fitzgerald Urea nitrogen [Mass/Vol] 20.0 mg/dL Critically high 7.0-18 .0 [facility] Comment on above: Performed By: #### C MP, LIPID ####[facility] [id number] [phone] Fitzgerald Urea nitrogen/Creatinine [Mass ratio] 27.0 mg/mg Normal [facility] Comment on above: Performed By: #### C MP, LIPID ####[facility] [address] [phone] Fitzgerald UA RANDOM W/MICROSCOPICon BACTERIA TRACE Abnormal NONE SEEN [facility] Comment on above: Performed By: #### U AMIC #### [facility] [address] [address] [address] Navjot Fitzgerald Bilirubin Ql (U) Negative Normal NEGATIVE [facility] Comment on above: Performed By: #### U AMIC #### [facility] [address] [address] [address] Navjot Fitzgerald CAST NONE SEEN Normal NONE SEEN [facility] Comment on above: Performed By: #### U AMIC #### [facility] [address] [address] [address] Navjot Fitzgerald Clarity (U) SL CLOUDY Abnormal CLEAR [facility] Comment on above: Performed By: #### U AMIC #### [facility] [address] [address] [address] Navjot Fitzgerald Crystals LM Nom (Urine sed) NONE SEEN Normal NONE SEEN [facility] Comment on above: Performed By: #### U AMIC #### [facility] [address] [address] [address] Navjot Fitzgerald Epithelial cells LM Ql (Urine sed) RARE Normal NONE SEEN /RARE [facility] Comment on above: Performed By: #### U AMIC #### [facility] [address] [address] [address] Navjot Fitzgerald Glucose Ql (U) Negative Normal NEGATIVE [facility] Comment on above: Performed By: #### U AMIC #### [facility] [address] [address] [address] Navjot Fitzgerald Hemoglobin Ql (U) TRACE-LYSED Abnormal NEGATIVE [facility] Comment on above: Performed By: #### U AMIC #### [facility] [address] [place] [address] Dr. Navjot Fitzgerald Ketones Ql (U) Negative Normal NEGATIVE [facility] Comment on above: Performed By: #### U AMIC #### [facility] [address] [address] [address] Navjot Fitzgerald LEUKOCYTES Negative Normal NEGATIVE [facility] Comment on above: Performed By: #### U AMIC #### [facility] [address] [place] [address] Dr. Navjot Fitzgerald MUCOUS TRACE Abnormal NONE SEEN [facility] Comment on above: Performed By: #### U AMIC #### [facility] [address] [address] [address] Navjot Fitzgerald Nitrite Ql (U) Negative Normal NEGATIVE [facility] Comment on above: Performed By: #### U AMIC #### [facility] [address] [place] [address] Dr. Navjot Fitzgerald pH (U) 6.0 [pH] Normal 5-9 [facility] Comment on above: Performed By: #### U AMIC #### [facility] [address] [place] [address] Dr. Navjot Fitzgerald RBC 0-2 Normal 0-2 [facility] Comment on above: Performed By: #### U AMIC #### [facility] [address] [address] [address] Navjot Fitzgerald SPEC GRAVITY 1.015 Normal 1.005-<=1.02 5 [facility] Comment on above: Performed By: #### U AMIC #### [facility] [address] [place] [address] Dr. Navjot Fitzgerald UA PROTEIN Negative Normal NEGATIVE/ TRACE [facility] Comment on above: Performed By: #### U AMIC #### [facility] [address] [place], [place] [address] Dr. Navjot Fitzgerald Urobilinogen Qn (U) 0.2 {Marita'U}/dL Normal 0.2 - 1. 0 [facility] Comment on above: Performed By: #### U AMIC #### [facility] [address] [place], [place] [address] Dr. Navjot Fitzgerald WBC NONE SEEN Normal NONE SEEN [facility] Comment on above: Performed By: #### U AMIC #### [facility] [address] [place], [place] [address] Dr. Navjot Fitzgerald Vital Signs Date Time Vital Sign Value Performing Clinician Facility 07-01-2024 13:32-0500 Body height 172.7 cm Gómez Coello DPM Work Phone: [facility] 07-01-2024 13:32-0500 Body mass index (BMI) [Ratio] 34.06 kg/m2 Gómez Coello DPM Work Phone: [facility] 07-01-2024 13:32-0500 Body weight 101.61 kg Gómez Coello DPM Work Phone: [facility] 07-01-2024 13:32-0500 Respiratory rate 16 /min Gómez Coello DPM Work Phone: [facility] 06-03-2024 09:49-0500 Body height 172.7 cm Charleen Hatfield [employer] Work Phone: [facility] 06-03-2024 09:49-0500 Body mass index (BMI) [Ratio] 34.15 kg/m2 Charleen Hatfield [employer] Work Phone: [facility] 06-03-2024 09:49-0500 Body temperature 98.49 [degF] Charleen Hatfield [employer] Work Phone: [facility] 06-03-2024 09:49-0500 Body weight 101.88 kg Charleen Hatfield [employer] Work Phone: [facility] 06-03-2024 09:49-0500 Diastolic blood pressure 80 mm[Hg] Charleen Julioholz [employer] Work Phone: [facility] 06-03-2024 09:49-0500 Heart rate 54 /min Charleennavya Julioholz [employer] Work Phone: [facility] 06-03-2024 09:49-0500 Respiratory rate 18 /min Charleen Julioholz [employer] Work Phone: [facility] 06-03-2024 09:49-0500 SaO2% (BldA) [Mass fraction] 98 % Charleennavya Julioholz [employer] Work Phone: [facility] 06-03-2024 09:49-0500 Systolic blood pressure 140 mm[Hg] Charleen Julioholz [employer] Work Phone: [facility] 04-16-2024 14:45-0400 Body height 172.7 cm Gómez Coello DPM Work Phone: [facility] 04-16-2024 14:45-0400 Body mass index (BMI) [Ratio] 33.15 kg/m2 Gómez Coello DPM Work Phone: [facility] 04-16-2024 14:45-0400 Body weight 98.88 kg Gómez Coello DPM Work Phone: [facility] 04-16-2024 14:45-0400 Diastolic blood pressure 80 mm[Hg] Gómez Coello DPM Work Phone: [facility] 04-16-2024 14:45-0400 Heart rate 81 /min Gómez Coello DPM Work Phone: [facility] 04-16-2024 14:45-0400 Systolic blood pressure 128 mm[Hg] Gómez Coello DPM Work Phone: [facility] 04-02-2024 13:37-0400 Body height 172.7 cm Charleen Cameliahholz [employer] Work Phone: [facility] 04-02-2024 13:37-0400 Body mass index (BMI) [Ratio] 33.12 kg/m2 Charleen Woodz [employer] Work Phone: [facility] 04-02-2024 13:37-0400 Body temperature 98.71 [degF] Charleen Julioholz [employer] Work Phone: [facility] 04-02-2024 13:37-0400 Body weight 98.79 kg Charleennavya Woodz [employer] Work Phone: [facility] 04-02-2024 13:37-0400 Diastolic blood pressure 70 mm[Hg] Charleen Sumanthholz [employer] Work Phone: [facility] 04-02-2024 13:37-0400 Heart rate 73 /min Charleennavya Julioholz [employer] Work Phone: [facility] 04-02-2024 13:37-0400 Respiratory rate 18 /min Charleennavya Julioholz [employer] Work Phone: [facility] 04-02-2024 13:37-0400 SaO2% (BldA) [Mass fraction] 98 % Charleen Sumanthholz [employer] Work Phone: [facility] 04-02-2024 13:37-0400 Systolic blood pressure 110 mm[Hg] Charleen Sumanthholz [employer] Work Phone: [facility] 03-27-2024 09:14-0400 Body height 172.7 cm Charleen Woodz [employer] Work Phone: [facility] 03-27-2024 09:14-0400 Body mass index (BMI) [Ratio] 33.72 kg/m2 Charleen Sumanthholz [employer] Work Phone: [facility] 03-27-2024 09:14-0400 Body temperature 98.1 [degF] Charleen Julioholz [employer] Work Phone: [facility] 03-27-2024 09:14-0400 Body weight 100.61 kg Charleennavya Julioholz [employer] Work Phone: [place] [id number] 09:14-0400 Diastolic blood pressure 60 mm[Hg] Charleen Woodz [employer] Work Phone: [facility] 03-27-2024 09:14-0400 Heart rate 68 /min Charleen Hatfield [employer] Work Phone: [facility] 03-27-2024 09:14-0400 Respiratory rate 18 /min Charleen Hatfield [employer] Work Phone: [facility] 03-27-2024 09:14-0400 SaO2% (BldA) [Mass fraction] 98 % Charleen Hatfield [employer] Work Phone: [facility] 03-27-2024 09:14-0400 Systolic blood pressure 120 mm[Hg] Charleen Julioholz [employer] Work Phone: [facility] 01-11-2024 16:00-0400 Body temperature 98 [degF] [facility] 01-11-2024 15:30-0400 Diastolic blood pressure 67 mm[Hg] [facility] 01-11-2024 15:30-0400 Heart rate 60 /min [facility] 01-11-2024 15:30-0400 Respiratory rate 16 /min [facility] 01-11-2024 15:30-0400 SaO2% (BldA) [Mass fraction] 96 % [facility] 01-11-2024 15:30-0400 Systolic blood pressure 139 mm[Hg] [facility] 01-11-2024 13:50-0400 Body height 172.72 cm [facility] 01-11-2024 13:50-0400 Body weight 101.7 kg [facility] 12-29-2023 12:18-0400 Diastolic blood pressure 68 mm[Hg] [facility] 12-29-2023 12:18-0400 Heart rate 77 /min [facility] 12-29-2023 12:18-0400 Respiratory rate 18 /min [facility] 12-29-2023 12:18-0400 SaO2% (BldA) [Mass fraction] 98 % [facility] 12-29-2023 12:18-0400 Systolic blood pressure 142 mm[Hg] [facility] 12-29-2023 10:35-0400 Body height 172.72 cm [facility] 12-29-2023 10:35-0400 Body weight 90.71 kg [facility] 12-29-2023 10:27-0400 Body temperature 97.9 [degF] [facility] Encounters Encounter Date Encounter Type Care Provider Facility Start: 09-09-2024 End: 09-09-2024 ambulatory GÓMEZ COELLO Not Available Start: 09-03-2024 End: 09-03-2024 ambulatory CHARLEEN HATFIELD Not Available Start: 07-10-2024 End: 07-12-2024 Clinisync Result Encounter Generic External Data Provider [facility] External Department Unsolicited Start: 07-10-2024 End: 07-12-2024 Clinisync Result Encounter Generic External Data Provider [facility] External Department Unsolicited Start: 07-01-2024 End: 07-01-2024 Bamboo flowsheet Gómez Coello DPM Work Phone: [facility] Start: 07-01-2024 End: 07-01-2024 Bamboo flowsheet Gómez Coello DPM Work Phone: [facility] Start: 07-01-2024 End: 07-01-2024 Patient encounter procedure Gómez Coello DPM Work Phone: [facility] Comment on above: Pain due to onychomy cosis of toenails of both feet (Primary Dx) Start: 07-01-2024 End: 07-01-2024 ambulatory GÓMEZ COELLO Not Available Start: 06-03-2024 End: 06-03-2024 Bamboo flowsheet Charleen Hatfield MODEL AND MOLD MAKER Work Phone: [facility] Start: 06-03-2024 End: 06-03-2024 Bamboo flowsheet Charleen Hatfield MODEL AND [employer] MAKER Work Phone: [facility] Start: 06-03-2024 End: 06-03-2024 Telephone encounter Charleen Hatfield [employer]DEL AND [employer] MAKER Work Phone: [facility] Start: 06-03-2024 End: 06-03-2024 ambulatory CHARLEEN HATFIELD Not Available Start: 06-03-2024 End: 06-03-2024 Office outpatient visit 25 minutes Charleen Hatfield [employer]ER Work Phone: [facility] Comment on above: Primary hypertension (CMS/HCC) (Primary Dx); Obesity with body mass index (BMI) of 30.0 to 39.9; Bradycardia; Needs flu shot; TAWANA (obstructive sleep apnea) Start: 04-16-2024 End: 04-16-2024 ambulatory GÓMEZ COELLO Not Available Start: 04-16-2024 End: 04-16-2024 Patient encounter procedure Gómez Coello DPM Work Phone: [facility] Comment on above: Pain due to onychomy cosis of toenails of both feet (Primary Dx) Start: 04-16-2024 End: 04-16-2024 Bamboo flowsheet Gómez Coello DPM Work Phone: [facility] Start: 04-16-2024 End: 04-16-2024 Bamboo flowsheet Gómez Coello DPM Work Phone: [facility] Start: 04-02-2024 End: 04-02-2024 Bamboo flowsheet Charleen Hatfield [employer]KER Work Phone: [facility] Start: 04-02-2024 End: 04-02-2024 Bamboo flowsheet Charleen Hatfield [employer]DEL AND [employer] MAKER Work Phone: [facility] Start: 04-02-2024 End: 04-02-2024 Office outpatient visit 10 minutes Charleen Hatfield [employer]KER Work Phone: [facility] Comment on above: Cellulitis of left l ower extremity (Primary Dx); Great toe pain, right; Obesity with body mass index (BMI) of 30.0 to 39.9 Start: 04-02-2024 End: 04-02-2024 ambulatory CHARLEEN AICHHOLZ Not Available Start: 03-27-2024 End: 03-27-2024 Bamboo flowsheet Charleen Julioholz [employer]DEL AND [employer] MAKER Work Phone: [facility] Start: 03-27-2024 End: 03-27-2024 Bamboo flowsheet Charleennavya Julioholz MODEL AND M[employer] MAKER Work Phone: [facility] Start: 03-27-2024 End: 03-27-2024 Office outpatient visit 25 minutes Charleennavya Juliolyn [employer] AND [employer] MAKER Work Phone: [facility] Comment on above: Pain and swelling of left lower leg (Primary Dx); Frequent PVCs; Primary hypertension (CMS/HCC); Obesity with body mass index (BMI) of 30.0 to 39.9 Start: 03-27-2024 End: 03-27-2024 ambulatory CHARLEEN AICHHOLZ Not Available Start: 02-09-2024 End: 02-09-2024 [facility] Start: 02-06-2024 End: 02-06-2024 ambulatory GÓMEZ COELLO Not Available Start: 02-05-2024 End: 02-05-2024 ambulatory Vamsi BENITO Facility:[facility] Start: 02-05-2024 End: 02-05-2024 Patient encounter procedure Vamsi BENITO [facility] Start: 01-17-2024 End: 01-17-2024 ambulatory CHARELEN AICHHOLZ Not Available Start: 01-11-2024 End: 01-11-2024 Emergency department patient visit [facility] Work Phone: Start: 01-11-2024 End: 01-11-2024 ambulatory CHARLEEN AICHHOLZ Not Available Start: 12-29-2023 End: 12-29-2023 Emergency department patient visit [facility] Work Phone: Start: 11-28-2023 End: 11-28-2023 ambulatory GÓMEZ COELLO Not Available Start: 11-28-2023 End: 11-28-2023 ambulatory CHARLEEN HATFIELD Not Available Start: 09-19-2023 End: 09-19-2023 ambulatory GÓMEZ COELLO Not Available Start: 08-28-2023 Patient encounter procedure Charleen Hatfield MODEL AND [employer] MAKER Work Phone: [facility] Start: 08-10-2023 Refill Charleen Demetrisz MODEL AND [employer] MAKER Work Phone: [facility] Comment on above: Primary hypertension (CMS/HCC) (Primary Dx) Start: 02-10-2023 ambulatory Vamsi Gomezi ty:[facility] [place] Start: 09-21-2022 End: 09-22-2022 ambulatory HOME HEALTH MANAGER CHARLEEN ALYSIA Facility:[facility] Start: 07-28-2022 End: 07-29-2022 ambulatory HOME HEALTH MANAGER CHARLEEN ALYSIA Facility:[facility] Start: 04-14-2022 End: 04-15-2022 ambulatory HOME HEALTH MANAGER CHARLEEN DEMETRISZ Facility:[facility] Start: 02-04-2022 End: 02-04-2022 Patient encounter procedure Vamsi BENITO [facility] Start: 02-01-2022 End: 02-02-[address] VAMSI BENITO . Facility:[facility] Start: 10-14-2021 End: 10-15-2021 ambulatory HOME HEALTH MANAGER CHARLEEN AICJAYLANZ Facility:[facility] Start: 10-01-2021 End: 10-02-2021 ambulatory BETHANY GONZALEZ Facility:[facility] Start: 09-30-2021 End: 10-01-2021 ambulatory HOME HEALTH MANAGER CHARLEEN AICJAYLANZ Facility:[facility] Procedures Date Procedure Procedure Detail Performing Clinician Start: 07-10-2024 QUANTIFERON-TB GOLD PLUS Generic External Data Provider Start: 01-11-2024 Plain chest X-ray Start: 12-29-2023 Antibody screen Comment on above: Result Comment: PERF ORMED BY: [facility] [address] [place] [address] PATHOLOGIST PROCESS ARCHITECT OLENA ZULETA M.D. Start: 12-29-2023 Plain X-ray of left shoulder Start: 12-29-2023 Plain X-ray of right hand Start: 12-29-2023 Computed tomography of abdomen and pelvis with contrast Start: 12-29-2023 CT cervical spine wi thout contrast Start: 12-29-2023 CT of head without contrast Start: 12-29-2023 CT of thorax with contrast Start: 02-01-2022 PSA screening TAE CHARLEEN CAMELIAJoaquimJOANNEHank Comment on above: Performed By: #### P SAD #### [facility] [address] [place] [address] Dr. Navjot Fitzgerald Start: 07-18-2013 Optical urethrotomy [...] Treatment Date Care Activity Detail Author Start: 01-10-2025 Pneumococcal Vaccine : 65+ Years (2 of 2 - PPSV23 or PCV20) Pneumococcal Vaccine: 65+ Years (2 of 2 - PPSV23 or PCV20) [facility] Comment on above: Postponed from 08/11 (Patient Refused) Start: 09-09-2024 End: 09-09-2024 Patient encounter procedure 09/09/2024 1:40 PM EDT Procedure Visit [facility] [address] [place] [address] Gómez Coello DPM [address] [address] [facility] Start: 09-03-2024 End: 09-03-2024 Patient encounter procedure 09/03/2024 10:30 AM EDT Office Visit [facility] [address] [place] [address] Charleen Hatfield, MARYAM [address] [place] [phone] [facility] Start: 08-27-2024 Medicare Annual Well ness (AWV) Medicare Annual Wellness (AWV) [facility] Start: 07-01-2024 End: 07-01-2024 Patient encounter procedure [facility] Comment on above: Pain due to onychomy cosis of toenails of both feet (Primary Dx) Start: 06-03-2024 End: 06-03-2024 Patient encounter procedure 06/03/2024 9:40 AM EST Office Visit [facility] [address] [place] [address] Charleen Hatfield, MODEL AND MOLD MAKER [address] [place] [phone] [facility] Start: 05-22-2024 Influenza vaccination Influenza Vacc ine (#1) [facility] Comment on above: Postponed from 02/24 (Patient Refused) Start: 04-16-2024 End: 04-16-2024 Patient encounter procedure 04/16/2024 2:40 PM EDT Procedure Visit [facility] [address] [place] [phone] Gómez Coello DPM [address] [address] [facility] Start: 04-02-2024 End: 04-02-2024 Patient encounter procedure 04/02/2024 1:40 PM EDT Office Visit [facility] [address] [place] [phone] Charleen Hatfield, MARYAM [address] [place] [phone] Arrived [facility] Comment on above: Arrived Start: 03-27-2024 End: 03-27-2025 US.doppler Lower extremity vein - left Vascular US lower extremity venous duplex left Imaging STAT Pain and swelling of left lower leg Expected: 03/27/2024 (Approximate), Expires: 03/27/2025 [facility] Work Phone: Comment on above: Expected: 03/27/2024 (Approximate), Expires: 03/27/2025 Start: 03-27-2024 End: 03-27-2024 Patient encounter procedure 03/27/2024 9:20 AM EDT Office Visit [facility] [address] [place] [phone] Charleen Hatfield, MARYAM [address] [place] [phone] Arrived [facility] Comment on above: Arrived Start: 02-25-2024 Influenza vaccination Influenza Vacc ine (#1) [facility] Start: 02-21-2024 Screening for malign ant neoplasm of colon [facility] Start: 12-29-[address] [facility] Start: 09-19-2023 End: 09-19-2023 Patient encounter procedure 09/19/2023 4:00 PM EDT Procedure Visit [facility] [address] [place] [address] Gómez Coello DPM [address] [address] [facility] Start: 08-28-2023 End: 08-28-2023 Patient encounter procedure 08/28/2023 10:00 AM EST Office Visit [facility] [address] [place] [address] Charleen Hatfield, MODEL AND [employer] MAKER [address] [place] [phone] [facility] Start: 02-24-2023 Influenza vaccination Influenza Vacc ine (#1) [facility] Start: 08-11-2017 Pneumococcal Vaccine : 65+ Years (2 of 2 - PPSV23 or PCV20) Pneumococcal Vaccine: 65+ Years (2 of 2 - PPSV23 or PCV20) [facility] Start: 1945 Screening for malign ant neoplasm of colon [facility] Patient Education [facility] Work Phone: Patient referral [facility] Work Phone: Immunizations Immunization Date Immunization Notes Care Provider [facility] 06-03-2024 influenza, high dose seasonal, preservative-free Charleen Hatfield MODEL AND MOLD MAKER Work Phone: [facility] 08-24-2020 SARS-CoV-2 (COVID-19 ) Ad26 vaccine, recombinant Vamsi BENITO [facility] 04-25-2018 Influenza, High-dose Seasonal, Quadrivalent, Preservative Free Charleen Demetrisz MODEL AND MOLD MAKER Work Phone: [facility] 04-25-2018 influenza virus vaccine, unspecified formulation Charleen Alysia MODEL AND MOLD MAKER Work Phone: [facility] 08-11-2016 pneumococcal conjuga te vaccine, 13 valent Charleen Sumanthholz MODEL AND MOLD MAKER Work Phone: [facility] 06-14-2013 zoster vaccine, live Charleen shirley MODEL AND MOLD MAKER Work Phone: [facility] Payers Date Payer Category Payer Self-pay 2023 Unknown [id number] 2016 [facility] BCBS [id number] 2016 Unknown BCBS BCBS xxxxxx [id number] 2016-Present [phone] [id number] [place], [place] [id number] 2012 Medicare [id number] 1959 Medicare [id number] 1945 Unknown [id number] 2.16840.1.520678.3.579.2 .593 1945 Unknown [id number] 2.16840.1.549225.3.579.2 .593 1947 Unknown [id number] 2.16.840.1.716612.3.579.2 .593 1947 Unknown [id number] 2.16.840.1.626205.3.579.2 .593 1947 Unknown [id number] 2.16.840.1.745663.3.579.2 .593 1947 Unknown [id number] 2.16.840.1.373919.3.579.2 .593 1947 Unknown [id number] 2.16.840.1.825689.3.579.2 .593 1947 Unknown [id number] 2.16.840.1.428148.3.579.2 .727 1947 Unknown [id number] 2.16840.1.480037.3.579.2 .727 1947 Unknown [id number] 2.16840.1.467860.3.579.2 .1259 1947 Unknown [id number] 2.840.1.749602.3.579.2 .1259 1947 Unknown [id number] 2.840.1.969667.3.579.2 .1259 1947 Unknown [id number] 2.840.1.688313.3.579.2 .1259 1947 Unknown [id number] 2.840.1.115458.3.579.2 .1259 1947 Unknown [id number] 2.840.1.963676.3.579.2 .1259 1947 Unknown [id number] 2.840.1.315278.3.579.2 .1259 1947 Unknown [id number] 2.840.1.630454.3.579.2 .1259 1947 Unknown [id number] 2.16840.1.902620.3.579.2 .1259 1947 Unknown [id number] 2.16.840.1.120253.3.579.2 .1259 1947 Unknown [id number] 2.16840.1.353077.3.579.2 .1259 1947 Unknown [id number] 2.16840.1.955927.3.579.2 .1259 1947 Unknown [id number] 2.16.840.1.065344.3.579.2 .1259 Unknown [id number] Unknown [id number] Unknown [id number] .16.840.1.216372.3.579.2 .531 Unknown [id number] 2.16.840.1.832899.3.579.2 .531 Social History Date Type Detail Facility Start: 02-04-2022 End: 01-11-2024 Tobacco smoking status Never smoked tobacco (finding) [facility] Start: 07-25-2023 End: 08-28-2023 Sex Assigned At Male [facility] Start: 07-11-2023 End: 08-15-2023 Tobacco use and exposure Smokeless tobacco non-user [facility] Start: 07-25-2023 End: 07-01-2024 Alcohol intake Lifetime non-drinker (finding) [facility] Start: 07-25-2023 End: 08-28-2023 History of Social function [facility] Start: 1945 Sex Assigned At Not on file [facility] Start: 1945 Sex Assigned At Male F [facility] Start: 08-15-2023 [facility] History of tobacco use Current smoker [facility] History of tobacco use Cigarette Smoker [facility] Within the last year , have you been afraid of your partner or ex-partner? No [facility] How hard is it for y ou to pay for the very basics like food, housing, medical care, and heating Not hard at all [facility] Do you feel stress - tense, restless, nervous, or anxious, or unable to sleep at night because your mind is troubled all the time - these days [OSQ] Not at all [facility] (I/We) worried [facility] (my/our) food would run out before (I/we) got money to buy more. Never true [facility] Functional Status Date Assessment Result Facility 02-04-2022 Functional Status N/A [facility] Clinical Notes 02-04-2022 to 07-01-2024 Gómez Coello, DENISM - 07/01/2024 1:40 PM ESTTelephone Encounter - Charleen Hatfield, MODEL AND MOLD MAKER - 06/03/2024 10:23 AM ESTTelephone Encounter - Charleen Hatfield, MODEL AND MOLD MAKER - 06/03/2024 10:23 AM ESTPatient Instructions Note Date & Type Note Facility 07-01-2024 History of Present illness Narrative Patient: Heather Mcmahon : 1945 PCP: José Manuel eRynaga MD SUBJECTIVE Patient presents today with a CC of elongated, thick nails. Pt states nails have been elongated and thick for many years and cause pain with ambulation in shoegear. Pt has tried previous treatment with minimal relief. Pt presents today for nail care and treatment. 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 Previous Hx as below Pt sees urology already. Has apt in 1 month. Previous Hx as below Over 4. Urology consult placed. Gastroesophageal reflux disease, unspecified whether esophagitis present 08/28/2023 OA (osteoarthritis) 08/28/2023 Obesity with body mass index (BMI) of 30.0 to 39.9 08/28/2023 Obstructive sleep apnea, adult Primary hypertension ([facility]/HCC) 06/07/2023 Psoriasis ([facility] Still seeing Dr. Dee.No issues.Prev Hx as below Pt states new Derm is doing well. Best skin he has had in several years. Previous Hx as below Pt states he was seeing a security tester who was helping him and now the doctor states he does not know why he thinks he has psoriasis. He would like to see another derm. Prev hx Being switched to possible injections for it as nothing else is working. Umbilical hernia without obstruction or gangrene 08/28/2023 Still no issues. No pain. Previous Hx as below Has a hx of hernia. URI, acute 09/04/2023 Medications: Current Outpatient Medications: amLODIPine (Norvasc) 5 MG tablet, Take 1 tablet (5 mg) by mouth Daily, Disp: 90 tablet, Rfl: 1 ASPIRIN 81 MG chewable tablet, Chew 1 tablet (81 mg) Daily, Disp: 90 tablet, Rfl: 3 lisinopril-hydroCHLOROthiazide 20-12.5 MG tablet, Take 1 tablet by mouth in the morning and 1 tablet before bedtime., Disp: 180 tablet, Rfl: 1 Social History: Social History Socioeconomic History Marital status: Spouse name: Not on file Number of children: Not on file Years of education: Not on file Highest education level: Not on file Occupational History Not on file Tobacco Use Smoking status: Former Types: Cigarettes Smokeless tobacco: Never Vaping Use Vaping status: Never Used Substance and Sexual Activity Alcohol use: Never Drug use: Never Sexual activity: Defer Other Topics Concern Not on file Social History Narrative Not on file Social Drivers of Health Financial Resource Strain: Low Risk (08/28/2023) Overall Financial Resource Strain (CARDIA) Difficulty of Paying Living Expenses: Not hard at all Food Insecurity: No Food Insecurity (08/28/2023) Hunger Vital Sign Worried About Running Out of Food in the Last Year: Never true Ran Out of Food in the Last Year: Never true Transportation Needs: No Transportation Needs (08/28/2023) PRAPARE - Transportation Lack of Transportation (Medical): No Lack of Transportation (Non-Medical): No Physical Activity: Inactive (08/28/2023) Exercise Vital Sign Days of Exercise per Week: 0 days Minutes of Exercise per Session: 0 min Stress: No Stress Concern Present (08/28/2023) [employer] - Occupational Stress Questionnaire Feeling of Stress : Not at all Social Connections: Not on file Intimate Partner Violence: Not At Risk (08/28/2023) Humiliation, Afraid, Rape, and Kick questionnaire Fear of Current or Ex-Partner: No Emotionally Abused: No Physically Abused: No Sexually Abused: No Housing Stability: Low Risk (08/28/2023) Housing Stability Vital Sign Unable to Pay for Housing in the Last Year: No Number of Places Lived in the Last Year: 1 Unstable Housing in the Last Year: No ROS: GI: denies abdominal pain or ulcerations with anti-inflammatory medication OBJECTIVE LE EXAM: DERM: Elongated thick yellow crumbly nails digits 1 through 10. Positive hair growth b/l feet. VASC: Positive palpable pedal pulses bilaterally NEURO: Gross sensation intact to bilateral feet ORTHO: Positive pain on palpation to nails 1 through 10 ASSESSMENT 1. Pain due to onychomycosis of toenails of both feet PLAN Discussed proper foot care with patient today. Debride nails in length and thickness digits 1 through 10 Gómez Coello DPM documented in this encounter [facility] 06-03-2024 Telephone encounter Note Please call [facility] in [place] and ask them to send a compliance report for my review [place] [facility] 06-03-2024 Miscellaneous Notes Please call [facility] in [place] and ask them to send a compliance report for my review [place] documented in this encounter [facility] 06-03-2024 History of Present illness Narrative Associated Problem(s): TAWANA (obstructive sleep apnea) Will continue PAP Obtain compliance report Images from the original note were not included. Heather Mcmahon is a 78 y.o. male presents with chief complaint of No chief complaint on file. HPI: TAWANA: has had pap approx 5 years, does feel it helps him, and he is wearing machine 4-6 hours per use Hypertension This is a chronic problem. The current episode started more than 1 year ago. The problem is unchanged. The problem is controlled. Pertinent negatives include no blurred vision, chest pain, headaches, palpitations, peripheral edema or shortness of breath. There are no associated agents to hypertension. Risk factors for coronary artery disease include male gender and obesity. Past treatments include calcium channel blockers, ALEXEY inhibitors and diuretics. The current treatment provides significant improvement. There are no compliance problems. There is no history of kidney disease or heart failure. SUBJECTIVE: MEDICATIONS: Current Outpatient Medications Medication Instructions amLODIPine (NORVASC) 5 mg, Oral, Daily aspirin (ASPIRIN) 81 mg, Oral, Daily lisinopril-hydroCHLOROthiazide 20-12.5 MG tablet 1 tablet, Oral, 2 times daily ALLERGIES: No Known Allergies REVIEW OF SYMPTOMS: Review of Systems Constitutional: Negative for activity change, appetite change, chills, fatigue, fever and unexpected weight change. HENT: Negative for congestion, ear pain, nosebleeds, rhinorrhea, sinus pressure, sneezing, sore throat, trouble swallowing and voice change. Eyes: Negative for blurred vision, pain, discharge and visual disturbance. Respiratory: Negative for apnea, cough, chest tightness, shortness of breath and wheezing. Cardiovascular: Negative for chest pain, palpitations and leg swelling. Gastrointestinal: Negative for abdominal distention, abdominal pain, blood in stool, constipation, diarrhea, nausea and vomiting. Genitourinary: Negative for decreased urine volume, difficulty urinating, dysuria, flank pain and hematuria. Musculoskeletal: Negative for arthralgias, back pain, joint swelling and myalgias. Skin: Negative for color change, rash and wound. Neurological: Negative for dizziness, tremors, seizures, weakness, numbness and headaches. Psychiatric/Behavioral: Negative for agitation, decreased concentration, hallucinations, self-injury, sleep disturbance and suicidal ideas. The patient is not nervous/anxious. Hematological: Negative for adenopathy. Does not bruise/bleed easily. Endocrine: Negative for cold intolerance, heat intolerance, polydipsia, polyphagia and polyuria. Allergic/Immunologic: Negative for environmental allergies and food allergies. 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 Previous Hx as below Pt sees urology already. Has apt in 1 month. Previous Hx as below Over 4. Urology consult placed. Gastroesophageal reflux disease, unspecified whether esophagitis present 08/28/2023 OA (osteoarthritis) 08/28/2023 Obesity with body mass index (BMI) of 30.0 to 39.9 08/28/2023 Obstructive sleep apnea, adult Primary hypertension ([facility]/HCC) 06/07/2023 Psoriasis ([facility] Still seeing Dr. Dee.No issues.Prev Hx as below Pt states new Derm is doing well. Best skin he has had in several years. Previous Hx as below Pt states he was seeing a security tester who was helping him and now the doctor states he does not know why he thinks he has psoriasis. He would like to see another derm. Prev hx Being switched to possible injections for it as nothing else is working. Umbilical hernia without obstruction or gangrene 08/28/2023 Still no issues. No pain. Previous Hx as below Has a hx of hernia. URI, acute 09/04/2023 Past Surgical History: Procedure Laterality Date ROTATOR CUFF REPAIR Left TRANSURETHRAL RESECTION OF PROSTATE family history includes Cancer in his mother. OBJECTIVE: Visit Vitals BP 140/80 Pulse 54 Temp 98.5 F (Temporal) Resp 18 Ht 5' 8 Wt 224 lb 9.6 oz SpO2 98% BMI 34.15 kg/m Smoking Status Former BSA 2.21 m Physical Exam Vitals and nursing note reviewed. Constitutional: Appearance: Normal appearance. HENT: Head: Normocephalic. Right Ear: External ear normal. Left Ear: External ear normal. Nose: Nose normal. Mouth/Throat: Mouth: Mucous membranes are moist. Pharynx: Oropharynx is clear. Eyes: Extraocular Movements: Extraocular movements intact. Conjunctiva/sclera: Conjunctivae normal. Neck: Vascular: No carotid bruit. Cardiovascular: Rate and Rhythm: Regular rhythm. Bradycardia present. Pulses: Normal pulses. Heart sounds: Normal heart sounds. Pulmonary: Effort: Pulmonary effort is normal. Breath sounds: Normal breath sounds. No wheezing or rales. Abdominal: General: Bowel sounds are normal. Palpations: Abdomen is soft. Musculoskeletal: Cervical back: Neck supple. Right lower leg: No edema. Left lower leg: No edema. Skin: General: Skin is warm and dry. Capillary Refill: Capillary refill takes 2 to 3 seconds. Neurological: General: No focal deficit present. Mental Status: He is alert. Psychiatric: Mood and Affect: Mood normal. Behavior: Behavior normal. Thought Content: Thought content normal. Judgment: Judgment normal. ASSESSMENT AND PLAN: Follow up in about 3 months (around 09/01/2024) for Recheck. Problem List Items Addressed This Visit Primary hypertension (CMS/HCC) - Primary Please check blood pressure daily and record DASH diet Limit caffeine Take medication as directed Contact office if chest pain, pressure, dizziness, shortness of breath, swelling legs Recommend slow position changes Current meds: amlodipine and lisinopril/hctz Obesity with body mass index (BMI) of 30.0 to 39.9 Discussed with patient their BMI (actual, verses recommended). We have also discussed lifestyle modifications: attempts to perform physical activity as chronic conditions allow, also to monitor dietary intake: increasing protein/fruits/veggies and lowering carb intake (unless contraindicated). Limit sodas, juices, and sugary drinks. Bradycardia Last saw cardiology in 01/2024 I did contact Cardiology at [facility], 06/21/24, at 1:00pm [place] (obstructive sleep apnea) Will continue PAP Obtain compliance report Other Visit Diagnoses Needs flu shot Relevant Orders Flu vaccine, high dose seasonal, PF ([id number]) (Fluzone High Dose) (Completed) Associated Problem(s): Bradycardia Last saw cardiology in 01/2024 I did contact Cardiology at [facility], 06/21/24, at 1:00pm Associated Problem(s): Obesity with body mass index (BMI) of 30.0 to 39.9 Discussed with patient their BMI (actual, verses recommended). We have also discussed lifestyle modifications: attempts to perform physical activity as chronic conditions allow, also to monitor dietary intake: increasing protein/fruits/veggies and lowering carb intake (unless contraindicated). Limit sodas, juices, and sugary drinks. Associated Problem(s): Primary hypertension (CMS/HCC) Please check blood pressure daily and record DASH diet Limit caffeine Take medication as directed Contact office if chest pain, pressure, dizziness, shortness of breath, swelling legs Recommend slow position changes Current meds: amlodipine and lisinopril/hctz documented in this encounter [facility] 06-03-2024 Instructions Charleen Hatfield NP - 06/03/2024 9:40 AM EST Cardiology: appt is June 21, 2024 (Monday) with Dr Concepcion at 1:00pm documented in this encounter [facility] 04-16-2024 History of Present illness Narrative Patient: Heather Mcmahon : 1945 PCP: José Manuel Reynaga MD SUBJECTIVE Patient presents today with a CC of elongated, thick nails. Pt states nails have been elongated and thick for many years and cause pain with ambulation in shoegear. Pt has tried previous treatment with minimal relief. Pt presents today for nail care and treatment. 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 Previous Hx as below Pt sees urology already. Has apt in 1 month. Previous Hx as below Over 4. Urology consult placed. Gastroesophageal reflux disease, unspecified whether esophagitis present 08/28/2023 OA (osteoarthritis) 08/28/2023 Obesity with body mass index (BMI) of 30.0 to 39.9 08/28/2023 Obstructive sleep apnea, adult Primary hypertension (CMS/HCC) 06/07/2023 Psoriasis ([facility] Still seeing Dr. Dee.No issues.Prev Hx as below Pt states new Derm is doing well. Best skin he has had in several years. Previous Hx as below Pt states he was seeing a security tester who was helping him and now the doctor states he does not know why he thinks he has psoriasis. He would like to see another derm. Prev hx Being switched to possible injections for it as nothing else is working. Umbilical hernia without obstruction or gangrene 08/28/2023 Still no issues. No pain. Previous Hx as below Has a hx of hernia. URI, acute 09/04/2023 Medications: Current Outpatient Medications: amLODIPine (Norvasc) 5 MG tablet, Take 1 tablet (5 mg) by mouth Daily, Disp: 90 tablet, Rfl: 1 ASPIRIN 81 MG chewable tablet, Chew 1 tablet (81 mg) Daily, Disp: 90 tablet, Rfl: 3 lisinopril-hydroCHLOROthiazide 20-12.5 MG tablet, Take 1 tablet by mouth in the morning and 1 tablet before bedtime., Disp: 180 tablet, Rfl: 1 Social History: Social History Socioeconomic History Marital status: Spouse name: Not on file Number of children: Not on file Years of education: Not on file Highest education level: Not on file Occupational History Not on file Tobacco Use Smoking status: Former Types: Cigarettes Smokeless tobacco: Never Vaping Use Vaping status: Never Used Substance and Sexual Activity Alcohol use: Never Drug use: Never Sexual activity: Defer Other Topics Concern Not on file Social History Narrative Not on file Social Drivers of Health Financial Resource Strain: Low Risk (08/28/2023) Overall Financial Resource Strain (CARDIA) Difficulty of Paying Living Expenses: Not hard at all Food Insecurity: No Food Insecurity (08/28/2023) Hunger Vital Sign Worried About Running Out of Food in the Last Year: Never true Ran Out of Food in the Last Year: Never true Transportation Needs: No Transportation Needs (08/28/2023) PRAPARE - Transportation Lack of Transportation (Medical): No Lack of Transportation (Non-Medical): No Physical Activity: Inactive (08/28/2023) Exercise Vital Sign Days of Exercise per Week: 0 days Minutes of Exercise per Session: 0 min Stress: No Stress Concern Present (08/28/2023) [employer] - Occupational Stress Questionnaire Feeling of Stress : Not at all Social Connections: Not on file Intimate Partner Violence: Not At Risk (08/28/2023) Humiliation, Afraid, Rape, and Kick questionnaire Fear of Current or Ex-Partner: No Emotionally Abused: No Physically Abused: No Sexually Abused: No Housing Stability: Low Risk (08/28/2023) Housing Stability Vital Sign Unable to Pay for Housing in the Last Year: No Number of Places Lived in the Last Year: 1 Unstable Housing in the Last Year: No ROS: GI: denies abdominal pain or ulcerations with anti-inflammatory medication OBJECTIVE LE EXAM: DERM: Elongated thick yellow crumbly nails digits 1 through 10. Positive hair growth b/l feet. VASC: Positive palpable pedal pulses bilaterally NEURO: Gross sensation intact to bilateral feet ORTHO: Positive pain on palpation to nails 1 through 10 ASSESSMENT 1. Pain due to onychomycosis of toenails of both feet PLAN Discussed proper foot care with patient today. Debride nails in length and thickness digits 1 through 10 Gómez Coello DPM documented in this encounter [facility] 04-02-2024 History of Present illness Narrative Associated Problem(s): Great toe pain, right Would recommend speaking w podiatry Associated Problem(s): Cellulitis Healing well, finish atb Fu if return of symtpoms Images from the original note were not included. Heather Mcmahon is a 78 y.o. male presents with chief complaint of No chief complaint on file. HPI: Here for recheck of cellulitis. Had neg US, taking atb, no fever, chills, chest pain or dyspnea. Swelling is better and redness SUBJECTIVE: MEDICATIONS: Current Outpatient Medications Medication Instructions amLODIPine (NORVASC) 5 mg, Oral, Daily aspirin (ASPIRIN) 81 mg, Oral, Daily cephalexin (KEFLEX) 500 mg, Oral, 3 times daily lisinopril-hydroCHLOROthiazide 20-12.5 MG tablet 1 tablet, Oral, 2 times daily ALLERGIES: No Known Allergies REVIEW OF SYMPTOMS: Review of Systems Constitutional: Negative for activity change, appetite change and unexpected weight change. HENT: Negative for ear pain, nosebleeds, sneezing, trouble swallowing and voice change. Eyes: Negative for pain, discharge and visual disturbance. Respiratory: Negative for apnea, chest tightness and wheezing. Cardiovascular: Positive for leg swelling. Gastrointestinal: Negative for abdominal distention, blood in stool, constipation and diarrhea. Genitourinary: Negative for decreased urine volume, difficulty urinating, dysuria and hematuria. Skin: Positive for rash. Negative for color change. Neurological: Negative for dizziness, tremors and seizures. Psychiatric/Behavioral: Negative for agitation, decreased concentration, hallucinations, self-injury and suicidal ideas. The patient is not nervous/anxious. Hematological: Negative for adenopathy. Does not bruise/bleed easily. Endocrine: Negative for cold intolerance, heat intolerance, polydipsia and polyuria. Allergic/Immunologic: Negative for environmental allergies and food allergies. 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 Previous Hx as below Pt sees urology already. Has apt in 1 month. Previous Hx as below Over 4. Urology consult placed. Gastroesophageal reflux disease, unspecified whether esophagitis present 08/28/2023 OA (osteoarthritis) 08/28/2023 Obesity with body mass index (BMI) of 30.0 to 39.9 08/28/2023 Obstructive sleep apnea, adult Primary hypertension ([facility]/HCC) 06/07/2023 Psoriasis ([facility]) Still seeing Dr. Dee.No issues.Prev Hx as below Pt states new Derm is doing well. Best skin he has had in several years. Previous Hx as below Pt states he was seeing a security tester who was helping him and now the doctor states he does not know why he thinks he has psoriasis. He would like to see another derm. Prev hx Being switched to possible injections for it as nothing else is working. Umbilical hernia without obstruction or gangrene 08/28/2023 Still no issues. No pain. Previous Hx as below Has a hx of hernia. URI, acute 09/04/2023 Past Surgical History: Procedure Laterality Date ROTATOR CUFF REPAIR Left TRANSURETHRAL RESECTION OF PROSTATE family history includes Cancer in his mother. OBJECTIVE: Visit Vitals BP 110/70 (BP Location: Left arm, Patient Position: Sitting, BP Cuff Size: Adult long) Pulse 73 Temp 98.7 F (Temporal) Resp 18 Ht 5' 8 Wt 217 lb 12.8 oz SpO2 98% BMI 33.12 kg/m Smoking Status Former BSA 2.18 m Physical Exam Vitals and nursing note reviewed. Constitutional: Appearance: Normal appearance. HENT: Head: Normocephalic. Right Ear: External ear normal. Left Ear: External ear normal. Nose: Nose normal. Mouth/Throat: Mouth: Mucous membranes are moist. Pharynx: Oropharynx is clear. Eyes: Extraocular Movements: Extraocular movements intact. Conjunctiva/sclera: Conjunctivae normal. Cardiovascular: Rate and Rhythm: Normal rate and regular rhythm. Pulses: Normal pulses. Heart sounds: Normal heart sounds. Pulmonary: Effort: Pulmonary effort is normal. Breath sounds: Normal breath sounds. Musculoskeletal: Cervical back: Neck supple. Left lower leg: Edema (trace bilat, L>R) present. Skin: General: Skin is warm and dry. Capillary Refill: Capillary refill takes 2 to 3 seconds. Comments: Area of erythema is nearly resolved, no warmth Right great toe: c/o toe pain, had recent podiatry visit, cut toe nail short No s/s infection, +onychomycosis, and to some degree of ingrown toe no s/s infection Neurological: General: No focal deficit present. Mental Status: He is alert. Psychiatric: Mood and Affect: Mood normal. Behavior: Behavior normal. Thought Content: Thought content normal. Judgment: Judgment normal. ASSESSMENT AND PLAN: Follow up in about 2 months (around 06/02/2024) for Recheck. Problem List Items Addressed This Visit Obesity with body mass index (BMI) of 30.0 to 39.9 Cellulitis - Primary Healing well, finish atb Fu if return of symtpoms Great toe pain, right Would recommend speaking w podiatry documented in this encounter [facility] 03-27-2024 History of Present illness Narrative Associated Problem(s): Pain and swelling of left lower leg Will send for STAT US today at [facility] at 12:30pm If clot will treat with anti coagulation If not will treat for cellulitis Associated Problem(s): Primary hypertension (CMS/HCC) No med dose changes Ausculatory gap Associated Problem(s): Frequent PVCs Continue with Cardiology Left leg- started yesterday- painful, red, and swollen pt states that he did not do anything. BP- first beat starts at 120 (his systolic number) and drops to 100 without hearing any beats between then again to 60 without any beats between leaving 60 as his diastolic number with no other beats after. Images from the original note were not included. Heather Mcmahon is a 78 y.o. male presents with chief complaint of No chief complaint on file. HPI: Hypertension This is a chronic problem. The current episode started more than 1 year ago. The problem is unchanged. The problem is controlled. Associated symptoms include peripheral edema. Pertinent negatives include no anxiety, orthopnea, palpitations, PND or shortness of breath. There are no associated agents to hypertension. Risk factors for coronary artery disease include obesity and male gender. Past treatments include ALEXEY inhibitors, diuretics and calcium channel blockers. The current treatment provides significant improvement. There are no compliance problems. There is no history of chronic renal disease. Edema Presents with new edema. The current episode started yesterday. The onset of the episode was sudden. These episodes happen throughout the day. The problem presents itself constantly. The edema is present on the left side(s). Risk factors for edema include no known risk factors. Associated agents include calcium channel blockers. Pertinent negative symptoms include no abdominal pain, no abdominal swelling, no cough, no decreased urine volume, no fatigue, no fever, no hemoptysis, no nocturia, no orthopnea, no palpitations, no PND, no presyncope, no syncope, no vomiting and no weight change. Pertinent negative history includes no CAD, no CHF, no chronic renal disease, no cirrhosis, no hepatitis, no liver disease, no recent surgery and no varicose veins. SUBJECTIVE: MEDICATIONS: Current Outpatient Medications Medication Instructions amLODIPine (NORVASC) 5 mg, Oral, Daily aspirin (ASPIRIN) 81 mg, Oral, Daily lisinopril-hydroCHLOROthiazide 20-12.5 MG tablet 1 tablet, Oral, 2 times daily ALLERGIES: No Known Allergies REVIEW OF SYMPTOMS: Review of Systems Constitutional: Negative for activity change, appetite change, fatigue, fever and unexpected weight change. HENT: Negative for ear pain, nosebleeds, sneezing, trouble swallowing and voice change. Eyes: Negative for pain, discharge and visual disturbance. Respiratory: Negative for apnea, cough, hemoptysis, chest tightness, shortness of breath and wheezing. Cardiovascular: Negative for palpitations, orthopnea, leg swelling (LLE), syncope and PND. Gastrointestinal: Negative for abdominal distention, abdominal pain, blood in stool, constipation, diarrhea and vomiting. Genitourinary: Negative for decreased urine volume, difficulty urinating, dysuria, hematuria and nocturia. Skin: Negative for color change. Neurological: Negative for dizziness, tremors and seizures. Psychiatric/Behavioral: Negative for agitation, decreased concentration, hallucinations, self-injury and suicidal ideas. The patient is not nervous/anxious. Hematological: Negative for adenopathy. Does not bruise/bleed easily. Endocrine: Negative for cold intolerance, heat intolerance, polydipsia and polyuria. Allergic/Immunologic: Negative for environmental allergies and food allergies. 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 Previous Hx as below Pt sees urology already. Has apt in 1 month. Previous Hx as below Over 4. Urology consult placed. Gastroesophageal reflux disease, unspecified whether esophagitis present 08/28/2023 OA (osteoarthritis) 08/28/2023 Obesity with body mass index (BMI) of 30.0 to 39.9 08/28/2023 Obstructive sleep apnea, adult Primary hypertension (CMS/HCC) 06/07/2023 Psoriasis ([facility] Still seeing Dr. Dee.No issues.Prev Hx as below Pt states new Derm is doing well. Best skin he has had in several years. Previous Hx as below Pt states he was seeing a security tester who was helping him and now the doctor states he does not know why he thinks he has psoriasis. He would like to see another derm. Prev hx Being switched to possible injections for it as nothing else is working. Umbilical hernia without obstruction or gangrene 08/28/2023 Still no issues. No pain. Previous Hx as below Has a hx of hernia. URI, acute 09/04/2023 Past Surgical History: Procedure Laterality Date ROTATOR CUFF REPAIR Left TRANSURETHRAL RESECTION OF PROSTATE family history includes Cancer in his mother. OBJECTIVE: Visit Vitals BP 120/60 (BP Location: Left arm, Patient Position: Sitting, BP Cuff Size: Adult long) Pulse 68 Temp 98.1 F (Temporal) Resp 18 Ht 5' 8 Wt 221 lb 12.8 oz SpO2 98% BMI 33.72 kg/m Smoking Status Former BSA 2.2 m Physical Exam Vitals and nursing note reviewed. Constitutional: Appearance: Normal appearance. HENT: Head: Normocephalic. Right Ear: External ear normal. Left Ear: External ear normal. Nose: Nose normal. Mouth/Throat: Mouth: Mucous membranes are moist. Pharynx: Oropharynx is clear. Eyes: Extraocular Movements: Extraocular movements intact. Conjunctiva/sclera: Conjunctivae normal. Neck: Vascular: No carotid bruit. Cardiovascular: Rate and Rhythm: Normal rate and regular rhythm. Pulses: Normal pulses. Heart sounds: Normal heart sounds. Comments: Ectopic beats noted Pulmonary: Effort: Pulmonary effort is normal. Breath sounds: Normal breath sounds. Abdominal: General: Bowel sounds are normal. Palpations: Abdomen is soft. Musculoskeletal: Cervical back: Neck supple. Left lower leg: Edema present. Comments: Swelling to LLE calf area, mild-mod erythema, almost petechial in appearance, it does not teja, no itchiness, achilles appears intact, mod tendernesss Skin: General: Skin is warm and dry. Capillary Refill: Capillary refill takes 2 to 3 seconds. Neurological: General: No focal deficit present. Mental Status: He is alert. Psychiatric: Mood and Affect: Mood normal. Behavior: Behavior normal. Thought Content: Thought content normal. Judgment: Judgment normal. ASSESSMENT AND PLAN: No follow-ups on file. Problem List Items Addressed This Visit Primary hypertension (CMS/HCC) No med dose changes Ausculatory gap Relevant Medications amLODIPine (Norvasc) 5 MG tablet ASPIRIN 81 MG chewable tablet lisinopril-hydroCHLOROthiazide 20-12.5 MG tablet Obesity with body mass index (BMI) of 30.0 to 39.9 Frequent PVCs Continue with Cardiology Pain and swelling of left lower leg - Primary Will send for STAT US today at [facility] at 12:30pm If clot will treat with anti coagulation If not will treat for cellulitis Relevant Orders Vascular US lower extremity venous duplex left documented in this encounter [facility] 02-09-2024 Note Cardiology Clinic No te Chief [...] Kisha Concepcion MD Interventional Cardiology [facility] 02-04-2022 Hospital Discharge instructions Patient Education 02/04/2022 [...] urethra. Follow these instructions at home: Take [id number] and prescription medicines only as told by [...] 06/12/2006 Document Revised: 05/07/2019 Document Reviewed: 07/17/2017 [employer] Patient Education 2020 [employer]™ Interactive. Follow Up Care 02/03/2021 15:56:19 With:Vamsi BENITO MD, URL Address: [address] [place] [id number]- When:Within 1 Year(s) [facility] Evaluation + Plan note Future Appointments Appointment Date:02/10/2023 10:15:00 AM Scheduled Provider:Vamsi BENITO MD Location:[facility] Appointment Type:URO Office Visit Diagnostic Tests PendingPSA Total 10/24/22 [facility] Evaluation note Diagnosis Primary hypertension (CMS/HCC)- Primary Unspecified essential hypertension documented in this encounter [facility] HealthcareEvaluation note* Diagnosis Primary hypertension (CMS/HCC)- Primary Unspecified essential hypertension documented in this encounter [facility] HealthcareEvaluation noteNo assessment information availableK[facility] Work Phone: Evaluation note* Diagnosis Pain and swelling of left lower leg- Primary Frequent PVCs Primary hypertension (CMS/HCC) Unspecified essential hypertension Obesity with body mass index (BMI) of 30.0 to 39.9 documented in this encounter [facility] HealthcareEvaluation note* Diagnosis Cellulitis of left lower extremity- Primary Great toe pain, right Obesity with body mass index (BMI) of 30.0 to 39.9 documented in this encounter [facility] HealthcareEvaluation note* Diagnosis Encounter for subsequent annual wellness visit (AWV) in Medicare patient- Primary Primary hypertension (CMS/HCC) Unspecified essential hypertension Gastroesophageal reflux disease, unspecified whether esophagitis present Routine general medical examination at health care facility Routine general medical examination at a health care facility URI, acute- Primary Acute upper respiratory infections of unspecified site Primary hypertension (CMS/HCC) Unspecified essential hypertension Mixed hyperlipidemia (CMS/HCC) Mixed hyperlipidemia Obesity with body mass index (BMI) of 30.0 to 39.9- Primary Primary hypertension (CMS/HCC) Unspecified essential hypertension Bradycardia- Primary Other specified cardiac dysrhythmias Morbid (severe) obesity due to excess calories (CMS/HCC) Essential (primary) hypertension (CMS/HCC) Unspecified essential hypertension Body mass index (BMI) 35.0-35.9, adult Primary hypertension (CMS/HCC) Unspecified essential hypertension Obesity with body mass index (BMI) of 30.0 to 39.9 Bradycardia- Primary Other specified cardiac dysrhythmias Primary hypertension (CMS/HCC) Unspecified essential hypertension Obesity with body mass index (BMI) of 30.0 to 39.9 Pain and swelling of left lower leg- Primary Frequent PVCs Primary hypertension (CMS/HCC) Unspecified essential hypertension Obesity with body mass index (BMI) of 30.0 to 39.9 Cellulitis of left lower extremity Cellulitis of left lower extremity- Primary Great toe pain, right Obesity with body mass index (BMI) of 30.0 to 39.9 Pain due to onychomycosis of toenails of both feet- Primary documented in this encounter [facility] HealthcareEvaluation note* Diagnosis Encounter for subsequent annual wellness visit (AWV) in Medicare patient- Primary Primary hypertension (CMS/HCC) Unspecified essential hypertension Gastroesophageal reflux disease, unspecified whether esophagitis present Routine general medical examination at health care facility Routine general medical examination at a health care facility URI, acute- Primary Acute upper respiratory infections of unspecified site Primary hypertension (CMS/HCC) Unspecified essential hypertension Mixed hyperlipidemia (CMS/HCC) Mixed hyperlipidemia Obesity with body mass index (BMI) of 30.0 to 39.9- Primary Primary hypertension (CMS/HCC) Unspecified essential hypertension Bradycardia- Primary Other specified cardiac dysrhythmias Morbid (severe) obesity due to excess calories ([facility]) Essential (primary) hypertension (CMS/HCC) Unspecified essential hypertension Body mass index (BMI) 35.0-35.9, adult Primary hypertension ([facility]) Unspecified essential hypertension Obesity with body mass index (BMI) of 30.0 to 39.9 Bradycardia- Primary Other specified cardiac dysrhythmias Primary hypertension (CMS/HCC) Unspecified essential hypertension Obesity with body mass index (BMI) of 30.0 to 39.9 Pain and swelling of left lower leg- Primary Frequent PVCs Primary hypertension ([facility]) Unspecified essential hypertension Obesity with body mass index (BMI) of 30.0 to 39.9 Cellulitis of left lower extremity Cellulitis of left lower extremity- Primary Great toe pain, right Obesity with body mass index (BMI) of 30.0 to 39.9 Primary hypertension ([facility]/HCC)- Primary Unspecified essential hypertension Obesity with body mass index (BMI) of 30.0 to 39.9 Bradycardia Other specified cardiac dysrhythmias Needs flu shot Need for prophylactic vaccination and inoculation against influenza [place] (obstructive sleep apnea) Obstructive sleep apnea (adult) (pediatric) documented in this encounter [facility] HealthcareEvaluation note* Diagnosis Encounter for subsequent annual wellness visit (AWV) in Medicare patient- Primary Primary hypertension (CMS/HCC) Unspecified essential hypertension Gastroesophageal reflux disease, unspecified whether esophagitis present Routine general medical examination at health care facility Routine general medical examination at a health care facility URI, acute- Primary Acute upper respiratory infections of unspecified site Primary hypertension (CMS/HCC) Unspecified essential hypertension Mixed hyperlipidemia (CMS/HCC) Mixed hyperlipidemia Obesity with body mass index (BMI) of 30.0 to 39.9- Primary Primary hypertension ([facility]/HCC) Unspecified essential hypertension Bradycardia- Primary Other specified cardiac dysrhythmias Morbid (severe) obesity due to excess calories ([facility]/HCC) Essential (primary) hypertension ([facility]) Unspecified essential hypertension Body mass index (BMI) 35.0-35.9, adult Primary hypertension ([facility]) Unspecified essential hypertension Obesity with body mass index (BMI) of 30.0 to 39.9 Bradycardia- Primary Other specified cardiac dysrhythmias Primary hypertension ([facility]) Unspecified essential hypertension Obesity with body mass index (BMI) of 30.0 to 39.9 Pain and swelling of left lower leg- Primary Frequent PVCs Primary hypertension ([facility]) Unspecified essential hypertension Obesity with body mass index (BMI) of 30.0 to 39.9 Cellulitis of left lower extremity Cellulitis of left lower extremity- Primary Great toe pain, right Obesity with body mass index (BMI) of 30.0 to 39.9 Primary hypertension ([facility])- Primary Unspecified essential hypertension Obesity with body mass index (BMI) of 30.0 to 39.9 Bradycardia Other specified cardiac dysrhythmias Needs flu shot Need for prophylactic vaccination and inoculation against influenza [place] (obstructive sleep apnea) Obstructive sleep apnea (adult) (pediatric) Pain due to onychomycosis of toenails of both feet- Primary documented in this encounter [facility] Narrative No data available for this section [facility] Hospital Discharge instructions Additional Instructions Follow-up with your private physician in 1 week Return if symptoms are worse Continue current [facility] Work Phone: Hospital Discharge instructions No data available for this section [facility] progress note No data available for this section [facility] Summary Purpose Family History No Family [...] Care Team (unrecognized sect ion and content) Lung Splitter Relationship Specialty Start Date End Date José Manuel Reynaga MD [address] [place] [phone] PCP - General Family Medicine 07/28/23 Charleen Hatfield NP [address] [place] [phone] Nurse Practitioner [facility] 04/26/23 Lung Splitter Relationship Specialty Start Date End Date José Manuel Reynaga MD [address] [place] [phone] PCP - General [facility] 07/28/23 Charleen Hatfield NP [address] [place] [phone] Nurse Practitioner [facility] 04/26/23 Team Status: Active Member Role Status [...] January 11, 2024 End: January 11, 2024 Lung Splitter Relationship Specialty Start Date End Date José Manuel Reynaga MD [address] [place] [phone] PCP - General Family Medicine 07/28/23 Charleen Hatfield NP [address] [place] [phone] Nurse Practitioner Family Medicine 04/26/23 Lung Splitter Relationship Specialty Start Date End Date José Manuel Reynaga MD [address] [place] [phone] PCP - General Family Medicine 07/28/23 Charleen Hatfield NP [address] [place] [phone] Nurse Practitioner Family Medicine 04/26/23 Lung Splitter Relationship Specialty Start Date End Date José Manuel Reynaga MD [address] [place] [phone] PCP - General Family Medicine 07/28/23 Charleen Hatfield NP [address] [place] [phone] Nurse Practitioner Family Medicine 04/26/23 Lung Splitter Relationship Specialty Start Date End Date José Manuel Reynaga MD [address] [place] [phone] PCP - General Family Medicine 07/28/23 Charleen Hatfield NP [address] [place] [phone] Nurse Practitioner Family Medicine 04/26/23 Lung Splitter Relationship Specialty Start Date End Date José Manuel Reynaga MD [address] [place] [phone] PCP - General Family Medicine 07/28/23 Charleen Hatfield NP [address] [place] [phone] Nurse Practitioner Family Medicine 04/26/23 Lung Splitter Relationship Specialty Start Date End Date José Manuel Reynaga MD [address] [place] [phone] PCP - General Family Medicine 07/28/23 Charleen Hatfield NP [address] [place] [phone] Nurse Practitioner Family Medicine 04/26/23 Lung Splitter Relationship Specialty Start Date End Date José Manuel Reynaga MD [address] [place] [phone] PCP - General Family Medicine 07/28/23 Charleen Hatfield NP [address] [place] [phone] Nurse Practitioner Family Medicine 04/26/23 Lung Splitter Relationship Specialty Start Date End Date José Manuel Reynaga MD [address] [place] [phone] PCP - General Family Medicine 07/28/23 Charleen Hatfield NP [address] [place] [phone] Nurse Practitioner Family Medicine 04/26/23 Lung Splitter Relationship Specialty Start Date End Date José Manuel Reynaga MD [address] [place] [phone] PCP - General Family Medicine 07/28/23 Charleen Hatfield NP [address] [place] [phone] Nurse Practitioner Family Medicine 04/26/23 Lung Splitter Relationship Specialty Start Date End Date José Manuel Reynaga MD [address] [place] [phone] PCP - General Family [facility] 07/28/23 Charleen Hatfield NP [address] [place] [phone] Nurse Practitioner Family Medicine 04/26/23 Lung Splitter Relationship Specialty Start Date End Date José Manuel Reynaga MD [address] [place] [phone] PCP - General Family [facility] 07/28/23 Charleen Hatfield NP [address] [place] [phone] Nurse Practitioner Family Medicine 04/26/23 (unrecognized sect ion and content) No Status Records FoundNo Status Records FoundNo Status Records FoundNo Status Records FoundNo Status Records Found INFORMATION SOURCE (unrecogn ized section and content) DATE CREATED AUTHOR 09/30/2022 [facility] DATE CREATED AUTHOR AUTHOR'S ORGANIZ ATION 01/26/[address] [facility] DATE CREATED AUTHOR AUTHOR'S ORGANIZ ATION 02/07/2024 Parth Hathaway [facility] DATE CREATED AUTHOR AUTHOR'S ORGANIZ ATION 03/20/2024 [facility] DATE CREATED AUTHOR AUTHOR'S ORGANIZ ATION 09/11/2024 [facility] EPIC Goals (unrecognized section and content) Goals may be documented in a n alternate section Reason for Visit (unrecogniz ed section and content) Reason Comments Toenail Care Non DM Nails Reason Comments Toenail Care Non dm nail care FOR RECORDS PERTAINING TO PATIENTS WHO ARE [...] BE BASED ON THE PRIMARY CLINICAL RECORDS. [employer] provides no warranty or guarantee of the accuracy or completeness of information in this document.
[2024-09-16 09:28] LABS: Basophils Absolute Auto 0.1 10^3/uL (0.0-0.1); Basophils Percent Auto 0.8 % (0.2-2.0); Eosinophils Absolute Auto 0.2 10^3/uL (0.0-0.7); Eosinophils Percent Auto 2.6 % (0.9-7.0); Hematocrit 48.3 % (42.0-54.0); Hemoglobin 16.5 g/dL (14.0-18.0); Immature Granulocytes Abs Auto 0.02 10^3/uL (0.00-0.03); Immature Granulocytes Pct Auto 0.3 % (0.0-0.5); Lymphocytes Absolute Auto 1.9 10^3/uL (1.2-3.8); Lymphocytes Percent Auto 30.1 % (20.5-60.0); Mean Corpuscular HGB Conc 34.2 g/dL (29.9-35.2); Mean Corpuscular Volume 90.6 fL (80.0-94.0); Mean Platelet Volume 9.1 fL (9.5-13.5); Monocytes Absolute Auto 0.7 10^3/uL (0.3-0.8); Monocytes Percent Auto 11.9 % (1.7-12.0); Neutrophils Absolute Auto 3.3 10^3/uL (1.4-6.5); Neutrophils Percent Auto 54.3 % (43.0-75.0); Platelet Count 233 10^3/uL (150-450); Red Blood Count 5.33 10^6/uL (4.70-6.10); Red Cell Distribution Width 12.5 % (11.0-15.0); White Blood Count 6.1 10^3/uL (4.0-11.0)
[2024-09-16 09:32] LABS: Creatinine Urine Random 80.77 mg/dL (20.00-300.00); Microalbum Creatinine Ratio Ur 45.8 mg/g (0.0-29.9); Microalbumin Urine Random 3.7 mg/dL (<=30.0)
[2024-09-16 09:52] LABS: Bilirubin Urine NEGATIVE (NEGATIVE); Blood Urine NEGATIVE (NEGATIVE); Clarity Urine CLEAR (CLEAR); Color Urine LT. YELLOW (YELLOW); Glucose Urine UA NEGATIVE (NEGATIVE); Ketones Urine NEGATIVE (NEGATIVE); Leukocyte Esterase Urine NEGATIVE (NEGATIVE); Nitrite Urine NEGATIVE (NEGATIVE); Protein Urine NEGATIVE (NEG/TRACE); Urobilinogen Urine 0.2 EU/dL (0.2-1.0)
[2024-09-16 10:03] LABS: Alanine Aminotransferase 32 U/L (16-63); Albumin Level 3.4 g/dL (3.4-5.0); Alkaline Phosphatase 119 U/L (46-116); Anion Gap 8.5; Aspartate Amino Transferase 22 U/L (15-37); BUN Creatinine Ratio 16.9; Bilirubin Total 0.8 mg/dL (0.2-1.0); Calcium 8.9 mg/dL (8.5-10.1); Carbon Dioxide 33.2 mmol/L (21.0-32.0); Chloride 103 mmol/L (98-107); Chol HDL Ratio 3.1; Cholesterol 175 mg/dL (<=200); Estimated GFR (African America >60 (>=60 mL/min/1.73m^2); Estimated GFR (Non-African Ame 60 (>=60 mL/min/1.73m^2); Globulin 3.5 g/dL; Glucose 98 mg/dL (74-106); HDL Cholesterol 56 mg/dL (40-60); LDL Cholesterol Calculated 89.8 mg/dL; Potassium 3.7 mmol/L (3.5-5.1); Sodium 141 mmol/L (136-145); Total Protein 6.9 g/dL (6.4-8.2); Triglycerides 146 mg/dL (<=150); VLDL CHOLESTEROL 29.2 mg/dL
[2024-09-16 10:06] LABS: Urine Microscopic Indicated NO
== END 2024-09-16 08:45 | disposition home or self-care (01) ==
LOC: LAB 08:46
PROVIDERS: PCP Nurse Practitioner; Visit Provider Nurse Practitioner
DX: G47.33 Obstructive sleep apnea (adult) (pediatric) (principal); I10 Essential (primary) hypertension; E78.2 Mixed hyperlipidemia
CPT/HCPCS: 36415; 80053; 80061; 81003; 82043; 82570; 85025

== ENCOUNTER 2024-10-02 09:57 | Outpatient (OUT) | payer MEDICARE, BC, SELFPAY ==
--- NOTE | 2024-10-02 10:00 | CA_ITS ---
Patient Name: HEATHER SALAZAR MR#: [id number] : 1945 Exam Date: 10/02/2024 Ordering Doctor: HARRIET ORTIZ M.D. ECHOCARDIOGRAM REPORT PROCEDURE: CA ECHO DOPPLER COMPLETE INDICATIONS: Abnormal ECG, hypertension COMPARISON: None. DESCRIPTION: COMPLETE ECHOCARDIOGRAM Real-time transthoracic echocardiography with 2D, M-mode, spectral and color flow Doppler performed. QUALITY: Technical quality was good. LEFT VENTRICLE: Normal chamber size. Normal left ventricular wall thickness. Systolic function is normal LV EF: Normal left ventricular ejection fraction, (55%). DIASTOLIC: Normal diastolic function. ATRIAL SEPTUM: Visually appears intact. LEFT ATRIUM: Normal chamber size. RIGHT ATRIUM: Normal chamber size. RIGHT VENTRICLE: Normal chamber size. Normal right ventricular systolic function. TRICUSPID VALVE: Normal mobility and thickness. No stenosis with trivial regurgitation. No evidence of pulmonary hypertension. RVSP 33 mmHg MITRAL VALVE: Normal mobility and thickness. No evidence of mitral valve stenosis. There is no mitral annular calcification. Trivial mitral regurgitation. AORTIC VALVE: Normal trileaflet appearance. No visible sclerosis. Normal leaflet mobility. No evidence of aortic valve stenosis. Trivial aortic regurgitation. AORTIC ROOT: Mildly dilated, measuring 4.2 cm. Ascending aorta is normal in size (3.6 m). PULMONIC VALVE: Normal thickness and mobility. No stenosis. Trivial regurgitation. PERICARDIUM: No evidence of pericardial effusion. IVC: Collapses with inspirations. IVC is dilated (2.5 cm) PLEURA: CONCLUSION: 1. Normal left ventricular size and systolic function. Estimated LVEF is 55%. 2. Normal right ventricular size and systolic function. 3. No significant valvular dysfunction. 4. Normal right-sided pressures. 5. Mildly dilated aortic root measuring 4.2 cm. Normal size ascending aorta. Adult Echocardiography Procedure Report Left Ventricle LVEDD (3.7 - 5.6 cm): 5.36 cm LVESD (2.2 - 4.0 cm): 3.59 cm LVIVS thickness (0.6 - 1.2 cm): 0.98 cm LVPW thickness (0.5 - 1.0 cm): 1.06 cm e': 0.09 m/s E - e': 5.22 LVOT Max Gradient: 1.74 mm[Hg] LVOT Area (cm2): 0.66 m/s Peak Velocity (LVOT): 0.66 m/s Mean Velocity (LVOT): 0.50 m/s LVOT Diameter 2.68 cm Left Atrium LA Volume Index (2D A2C): 30.77 ml/m2 Left Atrium Systolic Dimension: 5.05 cm Mitral Valve MV E to A Ratio: 0.59 Mitral Valve A-Wave Peak Velocity: 0.78 m/s Mitral Valve E-Wave Peak Velocity: 0.46 m/s Right Ventricle Aorta AO Root Diam: 4.21 cm Ascending Ao Diam: 3.63 cm Aortic Valve AoV Area (Peak Jaime): 3.79 cm2, 3.79 cm2 AoV Area (VTI): 3.69 cm2, 3.69 cm2 Peak Velocity(Antegrade Flow): 0.98 m/s Peak Gradient(Antegrade Flow): 3.87 mm[Hg] Mean Velocity(Antegrade Flow): 0.72 m/s Mean Gradient(Antegrade Flow): 2.29 mm[Hg] Velocity Time Integral: 25.48 cm Tricuspid Valve Peak Velocity (Regurgitant Flow): 2.27 m/s, 2.12 m/s, 2.50 m/s Pulmonic Valve Mean Gradient: 1.56 mm[Hg] Mean Velocity: 0.59 m/s Peak Velocity: 0.93 m/s Peak Gradient: 2.85 mm[Hg], 2.33 mm[Hg], 3.48 mm[Hg] Right Atrium Right Atrium Systolic Pressure: 54.33 ml, 54.33 ml Dictated by: Donato Salmeron M.D. on 10/02/2024 at 18:56 Approved by: Donato Salmeron M.D. on 10/02/2024 at 19:00
== END 2024-10-02 09:58 | disposition home or self-care (01) ==
PROVIDERS: PCP Nurse Practitioner; Visit Provider Internal Medicine Cardiovascular Disease
DX: R94.31 Abnormal electrocardiogram [ECG] [EKG] (principal)
CPT/HCPCS: 93306

== ENCOUNTER 2024-10-28 08:24 | Outpatient (OUT) | payer MEDICARE, BC, SELFPAY ==
--- NOTE | 2024-10-28 | NM_ITS ---
Patient Name: HEATHER SALAZAR MR#: [id number] : 1945 Exam Date: 10/28/2024 Ordering Doctor: KRISTINA MACHADO CNP RADIOLOGY REPORT PROCEDURE: NM JEFFERY PERF SPECT REST STR COMPARISON: None. INDICATIONS: ABNORMAL EKG TECHNIQUE: Exam Description: Stress/Rest one day protocol gated SPECT Rest Imagin.0 mCi Tc-99m Cardiolite IV on 10/28/2024 Stress Imaging 31.4 mCi Tc-99m Cardiolite IV on 10/28/2024 Exercise Protocol: 0.4 mg Lexiscan given IV Heart Rate (bpm): Rest: 52 Max: 105 PMHR: 73 Blood Pressure: Rest: 142/86 Max: 142/86 Symptoms: Rest and peak stress ECG findings were pending and the exercise portion of the study was pending per attending physician [facility] . For more details please see separate cardiac stress test report. FINDINGS: QUALITY OF STUDY: Good PERFUSION DEFECT: LOCATION: Apical SIZE: Small SEVERITY: Mild TYPE: Fixed with adequate thickening and contractility WALL MOTION: LV SIZE: 147 mL. TID / TCD: 0.9 LVEF: Calculated EF 51%. SUMMARY: Normal Myocardial perfusion imaging study CONCLUSION: Normal myocardial perfusion study without evidence of ischemia or infarction Enlarged left ventricle cavity Normal left ventricular systolic function, ejection fraction 51% No transient ischemic dilatation, TID 0.9 The EKG portion of stress test is reported separately Dictated by: Sandy Menon MD on 10/28/2024 at 17:34 Approved by: Sandy Menon MD on 10/28/2024 at 17:44
--- NOTE | 2024-10-28 10:36 | PC.NURSE ---
Nursing Note Cardiac Stress Test Reviewed: Medication, allergies and patient history reviewed. Stress Test: [x ] Patient tolerated stress test well. [x ] Patient unable to tolerate walking on treadmill. Switched to Lexiscan stress test. [x ] No chest pain noted per patient [ ] Chest pain that resolved prior to leaving stress lab. [x ] No dyspnea noted. [ ] Dyspnea that resolved prior to leaving stress lab. [x ] Patient left stress lab asymptomatic and hemodynamically stable. [ ] Patient taken to the Emergency Room due to non-resolving symptoms following stress test. [ ] Patient achieved target heart rate. [ x] Patient unable to achieve target heart rate. [ ] Aminophylline administered as reversal agent to Lexiscan (Regadenoson). [ ] Nitro administered. Nursing Comments: Patient unable to reach target HR due to leg fatigue. Switched to Lexiscan.
[2024-10-28] MEDS: REGADENOSON 0.4 MG/5 ML SYRINGE IV (12:37)
--- NOTE | 2024-10-28 18:05 | PM.STRESS ---
Stress Test Stress Test Requesting physician: KRISTINA MACHADO Procedure: This was a Lexiscan stress test with myocardial perfusion imaging performed at the [facility] on 10/28/2024. Intravenous line was secured. The patient was attached to electrocardiographic monitoring. Baseline vital signs and ECG were obtained. Initially the patient exercised on the treadmill for 3 minutes and had to stop due to inability to continue. Due to failure to reach target heart rate the test was switched from treadmill exercise to Lexiscan stress testing. Lexiscan 0.4 mg was administered intravenously followed by administration of Cardiolite. The patient then went on to obtain myocardial perfusion imaging. Resting heart rate was 52 bpm and peak heart rate was 105 bpm. Resting blood pressure was 142/86 and peak blood pressure was 142/86. General Information: Reason for Stress Test: Abnormal ECG. Cardiac History and Risk Factors: Hypertension, hyperlipidemia. Resting 12 - Lead Electrocardiogram: Sinus bradycardia with frequent premature ventricular complexes. Nonspecific intraventricular conduction delay. Stress Test: Protocol: Lexiscan stress test with nuclear perfusion. Exercise Capacity: Not assessed. Blood Pressure Response: Resting hypertension. Rhythm: Exam throughout the test. Frequent PVCs and PACs were noted during the test. ST - Response: No ischemic ST changes seen. Patient Response: No symptoms. Interpretation: 1. No evidence of ischemic ECG changes seen during brief period of treadmill exercise and following infusion of Lexiscan. 2. Frequent PVCs noted during the test. 3. Myocardial perfusion images will be reported separately.
== END 2024-10-28 08:25 | disposition home or self-care (01) ==
LOC: NM 08:24
PROVIDERS: PCP Nurse Practitioner; Visit Provider Nurse Practitioner Family
DX: R94.31 Abnormal electrocardiogram [ECG] [EKG] (principal)
CPT/HCPCS: 78452; 93017; A9500; J2785